=== PATIENT | female | born 1935 | race Caucasian/White ===

== ENCOUNTER 2017-08-28 15:21 | Inpatient (IN) | payer OTHER ==
--- NOTE | 2017-08-28 15:40 | PDOC ---
Rapid Medical Evaluation Time Seen by Provider: 08/28/17 15:33 Medical Evaluation: Allergies Allergy/AdvReac Type Severity Reaction Status Date / Time No Known Allergies Allergy Verified 01/13/16 12:48 08/28/17 15:33 I have performed a brief in-person evaluation of this patient. The patient presents with a chief complaint of pneumonia, found at xray at Dr. Mchugh's office. States patient sent for admission. Patient reports shortness of breath with walking and feeling weak Pertinent physical exam findings are appears weak lungs clear bilaterally heart s1 s2 I have ordered the following chest xray, labs this patient will proceed to the ED for further evaluation.
[2017-08-28 16:52] LABS: BASO % 0.8 % (0-2.0); EOS % 1.5 % (0-4.5); HEMATOCRIT 32.2 % (32.4-45.2); HEMOGLOBIN 10.9 GM/dL (10.7-15.3); LYMPH % 14.2 % (8-40); MCH 33.8 pg (25.7-33.7); MCHC 33.8 g/dl (32.0-36.0); MEAN CELL VOLUME 99.8 fl (80-96); MEAN PLT VOLUME 7.9 fl (7.5-11.1); MONO % 9.5 % (3.8-10.2); PLATELET COUNT 231 K/MM3 (134-434); RBC 3.23 M/mm3 (3.60-5.2); RDW 14.9 % (11.6-15.6); WHITE BLOOD COUNT 5.2 K/mm3 (4.0-10.0)
[2017-08-28 17:13] LABS: INR 1.16 (0.82-1.09); PROTHROMBIN TIME (PATIENT) 13.1 SEC (9.7-13.0)
[2017-08-28 17:15] LABS: ACTIVATED PTT 29.2 SECONDS (26.9-34.4)
[2017-08-28 17:31] LABS: ALBUMIN 2.5 g/dl (3.4-5.0); ANION GAP 6 (8-16); BLOOD UREA NITROGEN 12 mg/dL (7-18); CHLORIDE 98 mmol/L (98-107); CO2 33 mmol/L (21-32); CREATININE 3.3 mg/dL (0.55-1.02); GLUCOSE,RANDOM 195 mg/dL (74-106); POTASSIUM 3.1 mmol/L (3.5-5.1); SGOT/AST 17 U/L (15-37); SGPT/ALT 18 U/L (12-78); SODIUM 137 mmol/L (136-145)
[2017-08-28 17:46] LABS: ALK PHOS 74 U/L (45-117); BILIRUBIN,TOTAL 0.4 mg/dL (0.2-1.0); N-TERMINAL BNP 29998.79 pg/ml (5-450); TOT PROT 6.4 g/dl (6.4-8.2)
--- NOTE | 2017-08-28 18:17 | PDOC ---
History of Present Illness <Diego Georges - Last Filed: 08/28/17 18:44> - History of Present Illness Initial Comments: 08/28/17 18:36 "The patient is a 81 year old female, with a significant PMH of hyperlipidemia, DM, HTN, UTI, dialysis T/TH/S, who presents to the emergency department for evaluation of pneumonia diagnosed via X-ray by Dr. Mchugh at the office earlier today. The patient reports progressively worsening shortness of breath and cough when walking and states she feels weaker than normal. The patient states she was sent to the ED for further evaluation and admission. As per patients family the patient has been noted to have a cough, congestion, fever, chills and worsening leg swelling for the past 3 days. The patient states her last dialysis was earlier today which she completed in full. The patient denies chest pain, headache and dizziness. Denies nausea, vomit, diarrhea and constipation. Denies dysuria, frequency, urgency and hematuria. Allergies: NKA PCP: Dr. Fermin Mchugh " <Osman Fuentes - Last Filed: 08/28/17 18:46> - General Chief Complaint: Cold Symptoms Stated Complaint: PCP SENT Time Seen by Provider: 08/28/17 15:33 Past History <Diego Georges - Last Filed: 08/28/17 18:44> - Past Medical History COPD: No Diabetes: Yes Disorders: Yes (ESRD (T,TH, Sat)) HTN: Yes Hypercholesterolemia: Yes - Surgical History Cholecystectomy: Yes - Immunization History Immunization Up to Date: Yes - Suicide/Smoking/Psychosocial Hx Smoking History: Never smoked Have you smoked in the past 12 months: No Information on smoking cessation initiated: No Hx Alcohol Use: No Drug/Substance Use Hx: No Substance Use Type: None <Osman Fuentes - Last Filed: 08/28/17 18:46> - Past Medical History Allergies/Adverse Reactions: Allergies Allergy/AdvReac Type Severity Reaction Status Date / Time No Known Allergies Allergy Verified 08/28/17 15:39 Home Medications: Ambulatory Orders Acetaminophen with Codeine [Tylenol with Codeine #4 Tablet] 1 tab PO TID PRN 12/20 Ferrous Sulfate [Feosol] 325 mg PO DAILY 01/13/16 Loperamide HCl [Imodium -] 2 mg PO DAILY 09/08/16 Meclizine HCl [Bonine] 25 mg PO DAILY 01/13/16 Amlodipine Besylate [Norvasc -] 2.5 mg PO DAILY #30 tablet 01/18/16 Metoprolol Succinate [Toprol Xl -] 25 mg PO DAILY #30 tab.sr.24h 01/18/16 levoFLOXacin [Levaquin -] 250 mg PO Q2D@0600 #5 tablet 01/18/16 Review of Systems - Review of Systems Comments:: 08/28/17 18:36 " GENERAL/CONSTITUTIONAL: +Fever. +Chills. +Weakness. HEAD, EYES, EARS, NOSE AND THROAT: +Congestion. No change in vision. No ear pain or discharge. No sore throat. CARDIOVASCULAR: +Shortness of breath. +Leg swelling. No chest pain. RESPIRATORY: +Cough. No hemoptysis. GASTROINTESTINAL: No nausea, vomiting, diarrhea or constipation. GENITOURINARY: No dysuria, frequency, or change in urination. MUSCULOSKELETAL: No joint or muscle swelling or pain. No neck or back pain. SKIN: No rash NEUROLOGIC: No headache, vertigo, loss of consciousness, or change in strength/ sensation. ENDOCRINE: No increased thirst. No abnormal weight change. HEMATOLOGIC/LYMPHATIC: No anemia, easy bleeding, or history of blood clots. ALLERGIC/IMMUNOLOGIC: No hives or skin allergy. " <Osman Fuentes - Last Filed: 08/28/17 18:46> *Physical Exam - Vital Signs Last Vital Signs Temp Pulse Resp BP Pulse Ox 98.2 F 72 17 105/62 100 08/28/17 15:35 08/28/17 15:35 08/28/17 15:35 08/28/17 15:35 08/28/17 15:35 <Diego Georges - Last Filed: 08/28/17 18:44> - Vital Signs Last Vital Signs Temp Pulse Resp BP Pulse Ox 98.2 F 72 17 105/62 100 08/28/17 15:35 08/28/17 15:35 08/28/17 15:35 08/28/17 15:35 08/28/17 15:35 - Physical Exam Comments: 08/28/17 18:36 "GENERAL: Awake, alert, and fully oriented, in no acute distress. HEAD: No signs of trauma EYES: PERRLA, EOMI, sclera anicteric, conjunctiva clear ENT: Auricles normal inspection, hearing grossly normal, nares patent, oropharynx clear without exudates. Moist mucosa NECK: Nontender, no stepoffs, Normal ROM, supple, no lymphadenopathy, JVD, or masses LUNGS: + bilateral rales HEART: Regular rate and rhythm, normal S1 and S2, no murmurs, rubs or gallops ABDOMEN: Soft, nontender, normoactive bowel sounds. No guarding, no rebound. No masses EXTREMITIES: +2 PE BLE. No clubbing or cyanosis. No cords, erythema, or tenderness NEUROLOGICAL: Cranial nerves II through XII intact. 5/5 strength and sensation in all extremities, Normal speech, normal gait, normal cerebellar function SKIN: Warm, Dry, normal turgor, no rashes or lesions noted. " <Osman Fuentes - Last Filed: 08/28/17 18:46> ED Treatment Course - LABORATORY CBC & Chemistry Diagram: 08/28/17 16:35 08/28/17 16:35 - ADDITIONAL ORDERS Additional order review: Laboratory Results 08/28/17 08/28/17 16:35 16:35 PT with INR 13.10 H INR 1.16 H PTT (Actin FS) 29.2 Sodium 137 Potassium 3.1 L Chloride 98 Carbon Dioxide 33 H Anion Gap 6 L BUN 12 Creatinine 3.3 H Creat Clearance w eGFR 13.35 Random Glucose 195 H Calcium 8.0 L Total Bilirubin 0.4 AST 17 ALT 18 Alkaline Phosphatase 74 Creatine Kinase 61 Troponin I 0.03 B-Natriuretic Peptide 07237.79 H Total Protein 6.4 Albumin 2.5 L 08/28/17 16:35 RBC 3.23 L MCV 99.8 H MCHC 33.8 RDW 14.9 MPV 7.9 Neutrophils % 74.0 Lymphocytes % 14.2 D Monocytes % 9.5 D Eosinophils % 1.5 Basophils % 0.8 <Diego Georges - Last Filed: 08/28/17 18:44> - LABORATORY CBC & Chemistry Diagram: 08/28/17 16:35 08/28/17 16:35 - ADDITIONAL ORDERS Additional order review: Laboratory Results 08/28/17 08/28/17 16:35 16:35 PT with INR 13.10 H INR 1.16 H PTT (Actin FS) 29.2 Sodium 137 Potassium 3.1 L Chloride 98 Carbon Dioxide 33 H Anion Gap 6 L BUN 12 Creatinine 3.3 H Creat Clearance w eGFR 13.35 Random Glucose 195 H Calcium 8.0 L Total Bilirubin 0.4 AST 17 ALT 18 Alkaline Phosphatase 74 Creatine Kinase 61 Troponin I 0.03 B-Natriuretic Peptide 05763.79 H Total Protein 6.4 Albumin 2.5 L 08/28/17 16:35 RBC 3.23 L MCV 99.8 H MCHC 33.8 RDW 14.9 MPV 7.9 Neutrophils % 74.0 Lymphocytes % 14.2 D Monocytes % 9.5 D Eosinophils % 1.5 Basophils % 0.8 <Osman Fuentes - Last Filed: 08/28/17 18:46> Medical Decision Making - Medical Decision Making 08/28/17 18:[address] Callejas at 6:15 pm. Case discussed. <Diego Georges - Last Filed: 08/28/17 18:44> - Medical Decision Making 08/28/17 18:14 81 F with cough, SOB x 3 days. Outpt CXR found to have findings suspicious for PNA. Pt with rales and pitting edema on exam, concerning for possible CHF as well. Pt otherwise well appearing in no respiratory distress. - Labs, cultures, BNP - CXR - Abx - Admit 08/28/17 18:[address] Callejas <Osman Fuentes - Last Filed: 08/28/17 18:46> *DC/Admit/Observation/Transfer - Attestations Scribe Attestion: 08/28/17 18:31 Documentation prepared by Diego Georges, acting as certified medical biller for Osman Fuentes MD. <Diego Georges - Last Filed: 08/28/17 18:44> - Discharge Dispostion Admit: Yes - Attestations Physician Attestion: 08/28/17 18:46 I, Dr. Osman Fuentes MD, attest that this document has been prepared under my direction and personally reviewed by me in its entirety. I further attest, that it accurately reflects all work, treatment, procedures and medical decision -making performed by me. <Osman Fuentes - Last Filed: 08/28/17 18:46> Diagnosis at time of Disposition: PNA (pneumonia), CHF (congestive heart failure) - Referrals Referrals: Fermin Mchugh MD [Primary Care Provider] - - Patient Instructions - Post Discharge Activity
[2017-08-28] MEDS ORDERED: FUROSEMIDE 40 MG/4 ML INJECTABLE VIAL IVPUSH ONE (18:44)
[2017-08-28] MEDS ORDERED: FUROSEMIDE 40 MG/4 ML INJECTABLE VIAL ONE (18:54)
[2017-08-28] MEDS: ACETAMINOPHEN 325 MG TABLET (FP) PO PRN (21:00)
[2017-08-28 23:18] VITALS: BMI 23.1
--- NOTE | 2017-08-29 00:17 | HP ---
Admitting History and Physical - Admission History of Present Illness: Pt is a 81 y/o female with PMH significant for hyperlipidemia, DM, HTN, ESRD on HD T//, anemia and depression. Pt was initially seen in her PMD's office and found to have pneumo ia and sent to the ER. In the ER pt complained of a dry nonproductive cough and SOB for at least 1 week wc then worsened in the last 3 days. This was also accompanied w/ chest pressure wc was nonradiating but denied any palpitations. The CXR showed multilobar pneumonia and vascular congestion. - Past Medical History Cardiovascular: Yes: HTN Renal/: Yes: Renal Failure ...: No Heme/Onc: Yes: Anemia Psych: Yes: Depression Endocrine: Yes: Diabetes Mellitus - Past Surgical History Past Surgical History: Yes: AV Fistula/Graft - Smoking History Smoking history: Never smoked Have you smoked in the past 12 months: No - Alcohol/Substance Use Hx Alcohol Use: No Home Medications - Allergies Allergies/Adverse Reactions: Allergies Allergy/AdvReac Type Severity Reaction Status Date / Time No Known Allergies Allergy Verified 08/28/17 15:39 - Home Medications Home Medications: Ambulatory Orders Acetaminophen with Codeine [Tylenol with Codeine #4 Tablet] 1 tab PO TID PRN 12/20 Ferrous Sulfate [Feosol] 325 mg PO DAILY 01/13/16 Loperamide HCl [Imodium -] 2 mg PO DAILY 01/13/16 Amlodipine Besylate [Norvasc -] 5 mg PO DAILY 08/28/17 Aspirin [ASA -] 81 mg PO DAILY 08/28/17 Calcitriol 0.5 mcg PO DAILY 08/28/17 Duloxetine HCl 20 mg PO DAILY 08/28/17 Ergocalciferol [Vitamin D2] 50,000 unit PO Q7D@1000 08/28/17 Glimepiride 4 mg PO DAILY 08/28/17 Insulin Detemir [Levemir Flextouch] 14 unit SQ BID 08/28/17 Labetalol HCl 100 mg PO TID 08/28/17 Losartan Potassium 25 mg PO DAILY 08/28/17 Sevelamer HCl [Renagel] 800 mg PO TID 08/28/17 Family Disease History - Family Disease History Family History: Unremarkable Review of Systems - Review of Systems Constitutional: reports: Loss of Appetite, Weakness HENT: reports: No Symptoms Neck: reports: No Symptoms Cardiovascular: reports: Chest Pain, Shortness of Breath Respiratory: reports: Cough, SOB Gastrointestinal: reports: No Symptoms Physical Examination Vital Signs: Vital Signs Temperature 100.3 F H 08/28/17 21:00 Pulse Rate 90 08/28/17 21:00 Respiratory Rate 20 08/28/17 21:00 Blood Pressure 164/86 08/28/17 21:00 O2 Sat by Pulse Oximetry (%) 95 08/28/17 21:00 Constitutional: Yes: Well Nourished HENT: Yes: WNL Neck: Yes: WNL, Supple Cardiovascular: Yes: WNL, Regular Rate and Rhythm Respiratory: Yes: Rhonchi Gastrointestinal: Yes: WNL, Normal Bowel Sounds, Soft Musculoskeletal: Yes: WNL Extremities: Yes: WNL Edema: LLE: Trace, RLE: Trace Neurological: Yes: WNL, Alert, Oriented ...Motor Strength: WNL Labs: CBC, BMP 08/28/17 16:35 08/28/17 16:35 Problem List - Problems (1) PNA (pneumonia) Assessment/Plan: Multilobar pneumonia Cont IV levaquin Cont nebulizers Pulmonary consult Code(s): J18.9 - PNEUMONIA, UNSPECIFIED ORGANISM (2) CHF (congestive heart failure) Assessment/Plan: Acute on chronic diastoli heart failure Volume overload to be corrected w/ dialysis Monitor electrolytes Code(s): I50.9 - HEART FAILURE, UNSPECIFIED Qualifiers: Heart failure type: diastolic Heart failure chronicity: acute on chronic Qualified Code(s): I50.33 - Acute on chronic diastolic (congestive) heart failure (3) ESRD (end stage renal disease) Assessment/Plan: Dialysis as per renal Cont calcitrol/sevelamer Code(s): N18.6 - END STAGE RENAL DISEASE (4) Diabetes mellitus Assessment/Plan: Cont amaryl and levemir Code(s): E11.9 - TYPE 2 DIABETES MELLITUS WITHOUT COMPLICATIONS (5) HTN (hypertension) Assessment/Plan: BP stable Contlosartan/norvasc Code(s): I10 - ESSENTIAL (PRIMARY) HYPERTENSION Qualifiers: Hypertension type: essential hypertension Qualified Code(s): I10 - Essential (primary) hypertension (6) Anemia Assessment/Plan: Due to chronic dz/ESRD Cont Ferrous sulfate Epogen as per renal Code(s): D64.9 - ANEMIA, UNSPECIFIED (7) Depression Assessment/Plan: Cont cymbalta Code(s): F32.9 - MAJOR DEPRESSIVE DISORDER, SINGLE EPISODE, UNSPECIFIED
[2017-08-29] MEDS ORDERED: ACETAMINOPHEN 325 MG TABLET (FP) PO PRN (05:09)
[2017-08-29] MEDS: LABETALOL HCL 100 MG TABLET (FP) PO SCH ×3 (06:31→21:31)
[2017-08-29] MEDS: GLIMEPIRIDE 4 MG TABLET (FP) PO SCH (06:31)
[2017-08-29] MEDS: INSULIN (LEVEMIR) 100 UNITS/ML UNITS SQ SCH ×2 (06:31→22:56)
[2017-08-29 06:58] LABS: BASO % 0.5 % (0-2.0); HEMOGLOBIN 10.4 GM/dL (10.7-15.3); LYMPH % 17.4 % (8-40); MCH 33.3 pg (25.7-33.7); MCHC 33.5 g/dl (32.0-36.0); MEAN CELL VOLUME 99.7 fl (80-96); MEAN PLT VOLUME 8.3 fl (7.5-11.1); MONO % 9.2 % (3.8-10.2); NEUT % 69.9 % (42.8-82.8); PLATELET COUNT 211 K/MM3 (134-434); RBC 3.11 M/mm3 (3.60-5.2); RDW 14.8 % (11.6-15.6); WHITE BLOOD COUNT 5.9 K/mm3 (4.0-10.0)
[2017-08-29 07:25] LABS: ALBUMIN 2.4 g/dl (3.4-5.0); ANION GAP 8 (8-16); BLOOD UREA NITROGEN 17 mg/dL (7-18); CALCIUM 7.7 mg/dL (8.5-10.1); CHLORIDE 99 mmol/L (98-107); CO2 30 mmol/L (21-32); GLUCOSE,RANDOM 195 mg/dL (74-106); POTASSIUM 3.1 mmol/L (3.5-5.1); SODIUM 137 mmol/L (136-145)
[2017-08-29 07:28] LABS: ALK PHOS 65 U/L (45-117); BILIRUBIN,TOTAL 0.3 mg/dL (0.2-1.0); CREATININE 4.1 mg/dL (0.55-1.02); SGOT/AST 17 U/L (15-37); SGPT/ALT 14 U/L (12-78); TOT PROT 5.6 g/dl (6.4-8.2)
--- NOTE | 2017-08-29 07:47 | CONS ---
DATE OF CONSULTATION: DATE OF DICTATION: 08/29/2017 CARDIOLOGY CONSULTATION REQUESTING PHYSICIAN: Maggie Callejas MD HISTORY OF PRESENT ILLNESS: The patient is an 81-year-old female admitted for shortness of breath and pneumonia. The patient is well-known to me from the office. I had seen her in the office just several days ago. Her past medical history is significant for end-stage renal disease (on hemodialysis), diabetes and hypertension. She came to the emergency department for evaluation of pneumonia, diagnosed on chest x-ray by Dr. Mchugh in the office. The patient had reported progressively worsening shortness of breath and cough and weakness. In the ER, she was found to be febrile. As per the family, she has had a cough and congestion, fever and cough, worsening over the past 3 days. Her chest x-ray in the emergency department showed right upper lobe and left middle lobe pneumonia. PAST MEDICAL HISTORY: Significant for diabetes, hypertension and end-stage renal disease. MEDICATIONS: Her home medications include iron sulfate, Renagel, Norvasc 5 mg daily, losartan 25 mg daily, labetalol 100 mg t.i.d., insulin Levemir, glimepiride, vitamin D2, duloxetine, calcitriol, aspirin 81 mg daily. ALLERGIES: She has no known drug allergies. FAMILY HISTORY: Noncontributory. SOCIAL HISTORY: Nonsmoker. PHYSICAL EXAMINATION: Vital Signs: Reviewed in the EMR. Temperature maximum 100.7, pulse 91, blood pressure 150/52, O2 saturation 95% on 2 L. General: Alert. HEENT: Anicteric. Heart: S1, S2. Regular. Lungs: Bibasilar rales. Abdomen: Soft. No rebound or guarding. Extremities: With 1+ to 2+ bilateral edema. LABORATORY DATA: White count 5.2, hematocrit 32, platelet count 231. INR 1.16, sodium 137, potassium initially 3.1, creatinine 3.3. BNP is markedly elevated at 29,000. EKG: NSR 86bpm, LAE, LVH, 1st degree AV block, long QT IMPRESSION: 1. Multilobar pneumonia with fever. 2. End-stage renal disease, on dialysis. 3. Chronic diastolic congestive heart failure. RECOMMENDATIONS: 1. Cultures and antibiotics as per PMD. 2. Supplemental O2. 3. Dialysis as per Renal. 4. DVT prophylaxis. 5. Echocardiogram for assessment of LV function. 6. Replete lytes w/ HD as QT is mildly prolonged, cardiac enzymes neg. Cont tele Thank you for the consultation. GERARDO DIAZ M.D. [id number] MTDD
[2017-08-29] MEDS: ALBUTEROL SO4 2.5/IPRATROPIUM 0.5 INH SOL 3 ML VIAL.NEB. NEB PRN (07:53)
[2017-08-29] MEDS: SEVELAMER CARBONATE 800 MG TAB (FP) PO SCH ×3 (08:35→17:28)
[2017-08-29] MEDS: HEPARIN NA (PORCINE) 5,000 UNITS/ML 1ML VIAL SQ SCH ×2 (10:41→21:32)
[2017-08-29] MEDS: amLODIPine BESYLATE 5 MG TABLET (FP) PO SCH (10:41)
[2017-08-29] MEDS: ASPIRIN 81 MG CHEWABLE TABLETS PO SCH (10:41)
[2017-08-29] MEDS: CALCITRIOL 0.25 MCG CAPSULE (FP) PO SCH (10:41)
[2017-08-29] MEDS: FUROSEMIDE 40 MG/4 ML INJECTABLE VIAL IVPUSH SCH (10:41)
[2017-08-29] MEDS: LOSARTAN POTASSIUM 25 MG TABLET PO SCH (10:41)
[2017-08-29] MEDS: FERROUS SO4 325 MG TABLET (FP) PO SCH (10:41)
[2017-08-29] MEDS: DULoxetine HCL 20 MG CAPSULE.DR (FP) PO SCH (10:42)
--- NOTE | 2017-08-29 11:25 | PN ---
Progress Note (short form) - Note Progress Note: PULMONARY CONSULTATION DICTATED 08/29/17 IMP BILATERAL PNEUMONIA DIASTOLIC CHF ESRD ON HD HTN DM PLAN IV ABX CULTURES SUPPLEMENTAL O2 INHALED BRONCHODILATORS CHEST CT HD PER RENAL DR COLEMAN Problem List - Problems (1) ESRD (end stage renal disease) Code(s): N18.6 - END STAGE RENAL DISEASE (2) CHF (congestive heart failure) Code(s): I50.9 - HEART FAILURE, UNSPECIFIED (3) PNA (pneumonia) Code(s): J18.9 - PNEUMONIA, UNSPECIFIED ORGANISM (4) Diabetes mellitus Code(s): E11.9 - TYPE 2 DIABETES MELLITUS WITHOUT COMPLICATIONS (5) HTN (hypertension) Code(s): I10 - ESSENTIAL (PRIMARY) HYPERTENSION
--- NOTE | 2017-08-29 12:06 | EKG ---
Test Reason : Blood Pressure : / mmHG Vent. Rate : 086 BPM Atrial Rate : 086 BPM P-R Int : 210 ms QRS Dur : 102 ms QT Int : 418 ms P-R-T Axes : 055 062 076 degrees QTc Int : 500 ms SINUS RHYTHM WITH 1ST DEGREE A-V BLOCK POSSIBLE LEFT ATRIAL ENLARGEMENT PROLONGED QT ABNORMAL ECG WHEN COMPARED WITH ECG OF 13-JAN-2016 14:03, NO SIGNIFICANT CHANGE WAS FOUND Confirmed by PREMA CASTANEDA MD ([id number]) on 08/29/2017 12:05:41 PM Referred By: Confirmed By:PREMA CASTANEDA MD
--- NOTE | 2017-08-29 12:31 | CONS ---
DATE OF CONSULTATION: 08/29/2017 REFERRING PHYSICIAN: Maggie Callejas MD HISTORY OF PRESENT ILLNESS: The patient is an 81-year-old female, past medical history of end-stage renal disease, on hemodialysis, diabetes, hypertension, nonsmoker, admitted to [facility], who complained of increasing shortness of breath, cough and chest congestion and generalized weakness. She was at Dr. Mchugh's office with the above complaints. At the time she had a chest x-ray performed which revealed pneumonia at which time she was referred to the emergency room. In the ER she was noted to be febrile to a temperature of 100.7. She had a chest x-ray performed, revealed bilateral pneumonia. She was then transferred up to medical telemetry unit for further management. She was started on IV Levaquin. She is a nonsmoker. She denies any history of occupational exposure to chemicals or fumes. She was born in [facility], moved to the [facility] greater than 52 years ago. She denies any history of COPD or asthma in the past. PAST MEDICAL HISTORY: Again includes end-stage renal disease, on hemodialysis, hypertension as well as diabetes mellitus. SOCIAL HISTORY: Nonsmoker. Born in [facility] and moved to the [facility] 52 years ago. No occupational exposures. REVIEW OF SYSTEMS: Positive shortness of breath. Positive cough. Positive chest congestion. Positive fever. No chest pain. No palpitations. No nausea. No vomiting. No hemoptysis. No abdominal pain. CURRENT MEDICATIONS: Include Duo-Neb, Normodyne, Norvasc, Levemir, Feosol, Lasix, aspirin, Renvela, Amaryl, Calcitriol and Drisdol. PHYSICAL EXAMINATION: General: The patient is an elderly female, wide awake, alert, in no acute distress. Vital Signs: She is currently afebrile, blood pressure is 136/54, respiratory rate is 18, O2 saturation is 96% on 2 L. HEENT: Normocephalic, atraumatic. Neck: Supple. Heart: Regular with S1 and S2. Chest: Few scattered bilateral rhonchi. Abdomen: Soft. Bowel sounds are positive. Extremities: No cyanosis or edema. LABORATORIES: WBC is 5.9, hemoglobin 10.4, hematocrit 31.0, with a platelet count of 211,000. INR is 1.16. BUN is 17, creatinine 4.1. BNP is 29,998. Chest X-ray: Reveals cardiomegaly, increased markings bilaterally, patchy airspaces, right upper lobe and left mid lung field. IMPRESSION: 1. Bilateral pneumonia, community acquired. 2. End-stage renal disease, on hemodialysis 3. Mild pulmonary vascular congestion. 4. Diabetes mellitus. 5. Hypertension. PLAN: Continue inhaled bronchodilators. Supplemental O2. Hemodialysis as per Renal. Antibiotics. Sputum C & S, cultures. Legionella antigen, cold agglutinins, Pneumococcal antigen. Thank you. LANDEN COLEMAN M.D. [id number]
[2017-08-29] MEDS ORDERED: POTASSIUM CHLORIDE TABS 20 MEQ TABLET.ER (FP) PO ONE (17:15)
--- NOTE | 2017-08-29 18:49 | CONSULT ---
Consult - text type - Consultation Consultation Note: Renal Consult for ESRD on HD This is a 81 year old woman with PMhx of ESRD on HD (started 8 months ago), Diabetic Nephropathy, Hypertension, HLD, DM who presented with PNA from PMD office. Pt reports feeling better, denies any cough for now. No fever today but did have a fever yesterday on admission. s/p dialysis yesterday w/o complication. No LEWIS, confusion, lethargy, weakness, N/V/D. No CP. PMhx: as above Allergies: NKDA Family Hx: NC Social hx: No T/A/D ROS: as per HPI Home Medications Medication Instructions Recorded Acetaminophen with Codeine 1 tab PO TID PRN 01/13/16 [Tylenol with Codeine #4 Tablet] Ferrous Sulfate [Feosol] 325 mg PO DAILY 01/13/16 Loperamide HCl [Imodium -] 2 mg PO DAILY 01/13/16 Amlodipine Besylate [Norvasc -] 5 mg PO DAILY 08/28/17 Aspirin [ASA -] 81 mg PO DAILY 08/28/17 Calcitriol 0.5 mcg PO DAILY 08/28/17 Duloxetine HCl 20 mg PO DAILY 08/28/17 Ergocalciferol [Vitamin D2] 50,000 unit PO Q7D@1000 08/28/17 Glimepiride 4 mg PO DAILY 08/28/17 Insulin Detemir [Levemir Flextouch] 14 unit SQ BID 08/28/17 Labetalol HCl 100 mg PO TID 08/28/17 Losartan Potassium 25 mg PO DAILY 08/28/17 Sevelamer HCl [Renagel] 800 mg PO TID 08/28/17 Vital Signs Temperature 99.8 F H 08/29/17 14:00 Pulse Rate 75 08/29/17 14:00 Respiratory Rate 18 08/29/17 08:06 Blood Pressure 146/65 08/29/17 14:00 O2 Sat by Pulse Oximetry (%) 96 08/29/17 08:00 Intake & Output 08/26/17 08/27/17 08/28/17 08/29/17 23:59 23:59 23:59 23:59 Intake Total 130 130 Balance 130 130 Weight 63.049 kg NAD on NC O2 MMM, NO JVD RRR, No M/R + rales, no wheeze soft NT/ND No LE edema, clubbing or cyanosis Right arm AVF CBC, BMP 08/29/17 06:25 08/29/17 06:25 Current Medications Acetaminophen (Tylenol -) 650 mg PO Q6H PRN PRN Reason: FEVER Last Admin: 08/28/17 21:00 Dose: 650 mg Albuterol/Ipratropium (Duoneb -) 1 amp NEB Q6H PRN PRN Reason: SHORTNESS OF BREATH Last Admin: 08/29/17 07:53 Dose: 1 amp Amlodipine Besylate (Norvasc -) 5 mg PO DAILY [facility] Last Admin: 08/29/17 10:41 Dose: 5 mg Aspirin (Asa -) 81 mg PO DAILY [facility] Last Admin: 08/29/17 10:41 Dose: 81 mg Calcitriol (Rocaltrol -) 0.5 mcg PO DAILY [facility] Last Admin: 08/29/17 10:41 Dose: 0.5 mcg Duloxetine HCl (Cymbalta -) 20 mg PO DAILY [facility] Last Admin: 08/29/17 10:42 Dose: 20 mg Ergocalciferol (Drisdol -) 50,000 unit PO Tu@1000 [facility] Ferrous Sulfate (Feosol -) 325 mg PO DAILY [facility] Last Admin: 08/29/17 10:41 Dose: 325 mg Furosemide (Lasix Injection -) 40 mg IVPUSH DAILY [facility] Last Admin: 08/29/17 10:41 Dose: 40 mg Glimepiride (Amaryl -) 4 mg PO DAILY@0700 [facility] Last Admin: 08/29/17 06:31 Dose: 4 mg Heparin Sodium (Porcine) (Heparin -) 5,000 unit SQ BID [facility] Last Admin: 08/29/17 10:41 Dose: 5,000 unit Levofloxacin (Levaquin 250 Mg Premixed Ivpb -) 250 mg in 50 mls @ 100 mls/hr IVPB Q48H NURIS PRN Reason: Protocol Insulin Detemir (Levemir Vial) 14 units SQ BID@0700,2200 [facility] Last Admin: 08/29/17 06:31 Dose: 14 units Labetalol HCl (Normodyne -) 100 mg PO TID [facility] Last Admin: 08/29/17 14:12 Dose: 100 mg Losartan Potassium (Cozaar -) 25 mg PO DAILY [facility] Last Admin: 08/29/17 10:41 Dose: 25 mg Sevelamer Carbonate (Renvela -) 800 mg PO TIDCM NURIS Last Admin: 08/29/17 17:28 Dose: 800 mg 81 year old woman with PMhx of ESRD on HD (started 8 months ago), Diabetic Nephropathy, Hypertension, HLD, DM who presented with PNA from PMD office. #ESRD on HD #PNA #Hypertension #DM #Chronic Anemia #Renal Osteodystrophy Continue Abx as per primary no acute indiction for dialysis today, next treatment tomorrow Renal Diet, 1.2 L fluid restriction Continue Losartan, Lasix and Amlodipine Will continue Epogen with HD Continue Renvela and calcitriol, trend phos levels Thank you Will follow Ryan Dixon DO
--- NOTE | 2017-08-29 23:19 | PN ---
Progress Note, Physician History of Present Illness: This was entered in error - Current Medication List Current Medications: Active Medications Acetaminophen (Tylenol -) 650 mg PO Q6H PRN PRN Reason: FEVER Last Admin: 08/28/17 21:00 Dose: 650 mg Albuterol/Ipratropium (Duoneb -) 1 amp NEB Q6H PRN PRN Reason: SHORTNESS OF BREATH Last Admin: 08/29/17 07:53 Dose: 1 amp Amlodipine Besylate (Norvasc -) 5 mg PO DAILY [facility] Last Admin: 08/29/17 10:41 Dose: 5 mg Aspirin (Asa -) 81 mg PO DAILY [facility] Last Admin: 08/29/17 10:41 Dose: 81 mg Calcitriol (Rocaltrol -) 0.5 mcg PO DAILY [facility] Last Admin: 08/29/17 10:41 Dose: 0.5 mcg Duloxetine HCl (Cymbalta -) 20 mg PO DAILY [facility] Last Admin: 08/29/17 10:42 Dose: 20 mg Epoetin Angel (Epogen -) 8,000 unit IVPUSH ONCE ONE Stop: 08/30/17 06:01 Ergocalciferol (Drisdol -) 50,000 unit PO Tu@1000 [facility] Ferrous Sulfate (Feosol -) 325 mg PO DAILY [facility] Last Admin: 08/29/17 10:41 Dose: 325 mg Furosemide (Lasix Injection -) 40 mg IVPUSH DAILY [facility] Last Admin: 08/29/17 10:41 Dose: 40 mg Glimepiride (Amaryl -) 4 mg PO DAILY@0700 [facility] Last Admin: 08/29/17 06:31 Dose: 4 mg Heparin Sodium (Porcine) (Heparin -) 5,000 unit SQ BID [facility] Last Admin: 08/29/17 21:32 Dose: 5,000 unit Heparin Sodium (Porcine) (Heparin -) 1,000 unit IVPUSH ONCE ONE Stop: 08/30/17 06:01 Levofloxacin (Levaquin 250 Mg Premixed Ivpb -) 250 mg in 50 mls @ 100 mls/hr IVPB Q48H [facility] PRN Reason: Protocol Sodium Chloride (Normal Saline -) 250 mls @ 3,000 mls/hr IV PRN PRN PRN Reason: Hypotension during Dialysis Stop: 08/30/17 18:49 Insulin Detemir (Levemir Vial) 14 units SQ BID@0700,2200 [facility] Last Admin: 08/29/17 22:56 Dose: Not Given Labetalol HCl (Normodyne -) 100 mg PO TID [facility] Last Admin: 08/29/17 21:31 Dose: 100 mg Losartan Potassium (Cozaar -) 25 mg PO DAILY [facility] Last Admin: 08/29/17 10:41 Dose: 25 mg Sevelamer Carbonate (Renvela -) 800 mg PO TIDCM [facility] Last Admin: 08/29/17 17:28 Dose: 800 mg - Objective Vital Signs: Vital Signs Temperature 97.4 F L 08/29/17 21:30 Pulse Rate 57 L 08/29/17 21:30 Respiratory Rate 18 08/29/17 21:30 Blood Pressure 131/52 08/29/17 21:30 O2 Sat by Pulse Oximetry (%) 98 08/29/17 20:34 Labs: CBC, BMP 08/29/17 06:25 08/29/17 06:25 INR, PTT INR 1.16 (0.82-1.09) H 08/28/17 16:35
[2017-08-30] MEDS: GLIMEPIRIDE 4 MG TABLET (FP) PO SCH (06:19)
[2017-08-30] MEDS: INSULIN (LEVEMIR) 100 UNITS/ML UNITS SQ SCH ×2 (06:19→23:04)
[2017-08-30] MEDS: LABETALOL HCL 100 MG TABLET (FP) PO SCH ×3 (06:19→23:04)
[2017-08-30] MEDS: ALBUTEROL SO4 2.5/IPRATROPIUM 0.5 INH SOL 3 ML VIAL.NEB. NEB PRN ×2 (08:45→15:55)
[2017-08-30] MEDS: SEVELAMER CARBONATE 800 MG TAB (FP) PO SCH ×3 (08:47→17:49)
[2017-08-30] MEDS ORDERED: EPOETIN ALFA 10,000 UNIT/1 ML VIAL IVPUSH ONE (09:00)
[2017-08-30] MEDS ORDERED: SODIUM CHLORIDE 250 ML IV PRN (09:00)
[2017-08-30] MEDS ORDERED: HEPARIN NA (PORCINE) 5,000 UNITS/ML 1ML VIAL IVPUSH ONE (09:00)
--- NOTE | 2017-08-30 09:11 | PN ---
Progress Note, Physician Chief Complaint: no acute distress - Current Medication List Current Medications: Active Medications Acetaminophen (Tylenol -) 650 mg PO Q6H PRN PRN Reason: FEVER Last Admin: 08/28/17 21:00 Dose: 650 mg Albuterol/Ipratropium (Duoneb -) 1 amp NEB Q6H PRN PRN Reason: SHORTNESS OF BREATH Last Admin: 08/29/17 07:53 Dose: 1 amp Amlodipine Besylate (Norvasc -) 5 mg PO DAILY [facility] Last Admin: 08/29/17 10:41 Dose: 5 mg Aspirin (Asa -) 81 mg PO DAILY [facility] Last Admin: 08/29/17 10:41 Dose: 81 mg Calcitriol (Rocaltrol -) 0.5 mcg PO DAILY [facility] Last Admin: 08/29/17 10:41 Dose: 0.5 mcg Duloxetine HCl (Cymbalta -) 20 mg PO DAILY [facility] Last Admin: 08/29/17 10:42 Dose: 20 mg Ergocalciferol (Drisdol -) 50,000 unit PO Tu@1000 [facility] Ferrous Sulfate (Feosol -) 325 mg PO DAILY [facility] Last Admin: 08/29/17 10:41 Dose: 325 mg Furosemide (Lasix Injection -) 40 mg IVPUSH DAILY [facility] Last Admin: 08/29/17 10:41 Dose: 40 mg Glimepiride (Amaryl -) 4 mg PO DAILY@0700 [facility] Last Admin: 08/30/17 06:19 Dose: 4 mg Heparin Sodium (Porcine) (Heparin -) 5,000 unit SQ BID [facility] Last Admin: 08/29/17 21:32 Dose: 5,000 unit Levofloxacin (Levaquin 250 Mg Premixed Ivpb -) 250 mg in 50 mls @ 100 mls/hr IVPB Q48H [facility] PRN Reason: Protocol Insulin Detemir (Levemir Vial) 14 units SQ BID@0700,2200 [facility] Last Admin: 08/30/17 06:19 Dose: 14 units Labetalol HCl (Normodyne -) 100 mg PO TID [facility] Last Admin: 08/30/17 06:19 Dose: 100 mg Losartan Potassium (Cozaar -) 25 mg PO DAILY [facility] Last Admin: 08/29/17 10:41 Dose: 25 mg Sevelamer Carbonate (Renvela -) 800 mg PO TIDCM [facility] Last Admin: 08/30/17 08:47 Dose: 800 mg - Objective Vital Signs: Vital Signs Temperature 98.2 F 08/30/17 05:20 Pulse Rate 78 08/30/17 05:20 Respiratory Rate 18 08/30/17 05:20 Blood Pressure 150/57 08/30/17 05:20 O2 Sat by Pulse Oximetry (%) 98 08/29/17 20:34 Constitutional: Yes: Calm Cardiovascular: Yes: Regular Rate and Rhythm Respiratory: Yes: Other (rales right base) Gastrointestinal: Yes: Soft Edema: No Neurological: Yes: Alert Labs: CBC, BMP 08/29/17 06:25 08/29/17 06:25 INR, PTT INR 1.16 (0.82-1.09) H 08/28/17 16:35 - ....Imaging EKG: Image Reviewed (NSR) Assessment/Plan IMP: PNA ESRD REC: 1. O2 2. HD 3. ABx as per PMD f/u cultures 4. D/C tele
[2017-08-30 10:34] LABS: ANION GAP 11 (8-16); BLOOD UREA NITROGEN 33 mg/dL (7-18); CALCIUM 7.5 mg/dL (8.5-10.1); CHLORIDE 96 mmol/L (98-107); CO2 29 mmol/L (21-32); CREATININE 5.6 mg/dL (0.55-1.02); GLUCOSE,RANDOM 146 mg/dL (74-106); PHOSPHOROUS 6.3 mg/dL (2.5-4.9); POTASSIUM 3.2 mmol/L (3.5-5.1); SODIUM 136 mmol/L (136-145)
[2017-08-30 10:38] LABS: HEMATOCRIT 27.6 % (32.4-45.2); HEMOGLOBIN 9.3 GM/dL (10.7-15.3); MCH 33.4 pg (25.7-33.7); MCHC 33.6 g/dl (32.0-36.0); MEAN CELL VOLUME 99.2 fl (80-96); MEAN PLT VOLUME 8.7 fl (7.5-11.1); PLATELET COUNT 214 K/MM3 (134-434); RBC 2.78 M/mm3 (3.60-5.2); RDW 14.6 % (11.6-15.6); WHITE BLOOD COUNT 6.8 K/mm3 (4.0-10.0)
--- NOTE | 2017-08-30 12:34 | PN ---
Progress Note (short form) - Note Progress Note: PULMONARY States breathing better, cough nonproductive. Reports diarrhea. No further fevers. Last Vital Signs Temp Pulse Resp BP Pulse Ox 98.2 F 90 18 163/71 98 08/30/17 05:20 08/30/17 12:00 08/30/17 12:00 08/30/17 12:00 08/29/17 20:34 Gen: NAD at rest Heart: RRR Lung: decreased breath sounds at the bases Abd: soft, nontender Ext: no edema CBC, BMP 08/30/17 09:15 Active Medications Acetaminophen (Tylenol -) 650 mg PO Q6H PRN PRN Reason: FEVER Last Admin: 08/28/17 21:00 Dose: 650 mg Albuterol/Ipratropium (Duoneb -) 1 amp NEB Q6H PRN PRN Reason: SHORTNESS OF BREATH Last Admin: 08/30/17 08:45 Dose: 1 amp Amlodipine Besylate (Norvasc -) 5 mg PO DAILY [facility] Last Admin: 08/29/17 10:41 Dose: 5 mg Aspirin (Asa -) 81 mg PO DAILY [facility] Last Admin: 08/29/17 10:41 Dose: 81 mg Calcitriol (Rocaltrol -) 0.5 mcg PO DAILY [facility] Last Admin: 08/29/17 10:41 Dose: 0.5 mcg Duloxetine HCl (Cymbalta -) 20 mg PO DAILY [facility] Last Admin: 08/29/17 10:42 Dose: 20 mg Ergocalciferol (Drisdol -) 50,000 unit PO Tu@1000 [facility] Ferrous Sulfate (Feosol -) 325 mg PO DAILY [facility] Last Admin: 08/29/17 10:41 Dose: 325 mg Furosemide (Lasix Injection -) 40 mg IVPUSH DAILY [facility] Last Admin: 08/29/17 10:41 Dose: 40 mg Glimepiride (Amaryl -) 4 mg PO DAILY@0700 [facility] Last Admin: 08/30/17 06:19 Dose: 4 mg Heparin Sodium (Porcine) (Heparin -) 5,000 unit SQ BID [facility] Last Admin: 08/29/17 21:32 Dose: 5,000 unit Levofloxacin (Levaquin 250 Mg Premixed Ivpb -) 250 mg in 50 mls @ 100 mls/hr IVPB Q48H [facility] PRN Reason: Protocol Insulin Detemir (Levemir Vial) 14 units SQ BID@0700,2200 [facility] Last Admin: 08/30/17 06:19 Dose: 14 units Labetalol HCl (Normodyne -) 100 mg PO TID [facility] Last Admin: 08/30/17 06:19 Dose: 100 mg Losartan Potassium (Cozaar -) 25 mg PO DAILY [facility] Last Admin: 08/29/17 10:41 Dose: 25 mg Sevelamer Carbonate (Renvela -) 800 mg PO TIDCM [facility] Last Admin: 08/30/17 08:47 Dose: 800 mg A/P Pneumonia Acute on Chronic Diastolic Heart Failure ESRD on HD HTN DM - continue antibiotics - f/u cultures - HD per renal - inhaled bronchodilators, O2 as needed - DVT prophylaxis
[2017-08-30] MEDS: ACETAMINOPHEN 325 MG TABLET (FP) PO PRN (14:06)
[2017-08-30] MEDS: DULoxetine HCL 20 MG CAPSULE.DR (FP) PO SCH (14:07)
[2017-08-30] MEDS: ASPIRIN 81 MG CHEWABLE TABLETS PO SCH (14:10)
[2017-08-30] MEDS: FERROUS SO4 325 MG TABLET (FP) PO SCH (14:10)
[2017-08-30] MEDS: LOSARTAN POTASSIUM 25 MG TABLET PO SCH (14:10)
[2017-08-30] MEDS: amLODIPine BESYLATE 5 MG TABLET (FP) PO SCH (14:10)
[2017-08-30] MEDS: CALCITRIOL 0.25 MCG CAPSULE (FP) PO SCH (14:10)
[2017-08-30] MEDS: FUROSEMIDE 40 MG/4 ML INJECTABLE VIAL IVPUSH SCH (14:11)
[2017-08-30] MEDS: HEPARIN NA (PORCINE) 5,000 UNITS/ML 1ML VIAL SQ SCH ×2 (14:11→23:04)
--- NOTE | 2017-08-30 15:03 | PN ---
Progress Note (short form) - Note Progress Note: Renal follow up for ESRD on HD Pt seen and examined during dialysis earlier today BP 170/60, UF goal 3L AVF with good BFR, pressures WNL pt without acute complaints Vital Signs Temperature 101.4 F H 08/30/17 14:00 Pulse Rate 90 08/30/17 14:00 Respiratory Rate 20 08/30/17 14:00 Blood Pressure 176/78 08/30/17 14:00 O2 Sat by Pulse Oximetry (%) 97 08/30/17 09:00 Intake & Output 08/27/17 08/28/17 08/29/17 08/30/17 23:59 23:59 23:59 23:59 Intake Total 130 330 120 Output Total 0 Balance 130 330 120 Weight 63.049 kg 62.777 kg NAD on NC O2 MMM, NO JVD RRR, No M/R + rales, no wheeze soft NT/ND No LE edema, clubbing or cyanosis Right arm AVF CBC, BMP 08/29/17 06:25 08/29/17 06:25 Current Medications Acetaminophen (Tylenol -) 650 mg PO Q6H PRN PRN Reason: FEVER Last Admin: 08/28/17 21:00 Dose: 650 mg Albuterol/Ipratropium (Duoneb -) 1 amp NEB Q6H PRN PRN Reason: SHORTNESS OF BREATH Last Admin: 08/29/17 07:53 Dose: 1 amp Amlodipine Besylate (Norvasc -) 5 mg PO DAILY [facility] Last Admin: 08/29/17 10:41 Dose: 5 mg Aspirin (Asa -) 81 mg PO DAILY [facility] Last Admin: 08/29/17 10:41 Dose: 81 mg Calcitriol (Rocaltrol -) 0.5 mcg PO DAILY [facility] Last Admin: 08/29/17 10:41 Dose: 0.5 mcg Duloxetine HCl (Cymbalta -) 20 mg PO DAILY [facility] Last Admin: 08/29/17 10:42 Dose: 20 mg Ergocalciferol (Drisdol -) 50,000 unit PO Tu@1000 [facility] Ferrous Sulfate (Feosol -) 325 mg PO DAILY [facility] Last Admin: 08/29/17 10:41 Dose: 325 mg Furosemide (Lasix Injection -) 40 mg IVPUSH DAILY [facility] Last Admin: 08/29/17 10:41 Dose: 40 mg Glimepiride (Amaryl -) 4 mg PO DAILY@0700 [facility] Last Admin: 08/29/17 06:31 Dose: 4 mg Heparin Sodium (Porcine) (Heparin -) 5,000 unit SQ BID [facility] Last Admin: 08/29/17 10:41 Dose: 5,000 unit Levofloxacin (Levaquin 250 Mg Premixed Ivpb -) 250 mg in 50 mls @ 100 mls/hr IVPB Q48H [facility] PRN Reason: Protocol Insulin Detemir (Levemir Vial) 14 units SQ BID@0700,2200 [facility] Last Admin: 08/29/17 06:31 Dose: 14 units Labetalol HCl (Normodyne -) 100 mg PO TID [facility] Last Admin: 08/29/17 14:12 Dose: 100 mg Losartan Potassium (Cozaar -) 25 mg PO DAILY [facility] Last Admin: 08/29/17 10:41 Dose: 25 mg Sevelamer Carbonate (Renvela -) 800 mg PO TIDCM [facility] Last Admin: 08/29/17 17:28 Dose: 800 mg 81 year old woman with PMhx of ESRD on HD (started 8 months ago), Diabetic Nephropathy, Hypertension, HLD, DM who presented with PNA from PMD office. #ESRD on HD #PNA #Hypertension #DM #Chronic Anemia #Renal Osteodystrophy Continue Abx as per primary Tolerating HD well today to get antihypertenive meds after dialsyis Trend CBC continue phos binder and calcitriol Thank you Will follow Ryan Dixon DO
--- NOTE | 2017-08-30 23:11 | PN ---
Progress Note, Physician History of Present Illness: Pt has less productive cough - Current Medication List Current Medications: Active Medications Acetaminophen (Tylenol -) 650 mg PO Q6H PRN PRN Reason: FEVER Last Admin: 08/30/17 14:06 Dose: 650 mg Albuterol/Ipratropium (Duoneb -) 1 amp NEB Q6H PRN PRN Reason: SHORTNESS OF BREATH Last Admin: 08/30/17 15:55 Dose: 1 amp Amlodipine Besylate (Norvasc -) 5 mg PO DAILY [facility] Last Admin: 08/30/17 14:10 Dose: 5 mg Aspirin (Asa -) 81 mg PO DAILY [facility] Last Admin: 08/30/17 14:10 Dose: 81 mg Calcitriol (Rocaltrol -) 0.5 mcg PO DAILY [facility] Last Admin: 08/30/17 14:10 Dose: 0.5 mcg Duloxetine HCl (Cymbalta -) 20 mg PO DAILY [facility] Last Admin: 08/30/17 14:07 Dose: 20 mg Ergocalciferol (Drisdol -) 50,000 unit PO Tu@1000 [facility] Ferrous Sulfate (Feosol -) 325 mg PO DAILY [facility] Last Admin: 08/30/17 14:10 Dose: 325 mg Furosemide (Lasix Injection -) 40 mg IVPUSH DAILY [facility] Last Admin: 08/30/17 14:11 Dose: 40 mg Glimepiride (Amaryl -) 4 mg PO DAILY@0700 [facility] Last Admin: 08/30/17 06:19 Dose: 4 mg Heparin Sodium (Porcine) (Heparin -) 5,000 unit SQ BID [facility] Last Admin: 08/30/17 14:11 Dose: Not Given Levofloxacin (Levaquin 250 Mg Premixed Ivpb -) 250 mg in 50 mls @ 100 mls/hr IVPB Q48H [facility] PRN Reason: Protocol Insulin Detemir (Levemir Vial) 14 units SQ BID@0700,2200 [facility] Last Admin: 08/30/17 06:19 Dose: 14 units Labetalol HCl (Normodyne -) 100 mg PO TID [facility] Last Admin: 08/30/17 14:06 Dose: 100 mg Losartan Potassium (Cozaar -) 25 mg PO DAILY [facility] Last Admin: 08/30/17 14:10 Dose: 25 mg Sevelamer Carbonate (Renvela -) 800 mg PO TIDCM [facility] Last Admin: 08/30/17 17:49 Dose: 800 mg - Objective Vital Signs: Vital Signs Temperature 99.3 F 08/30/17 17:00 Pulse Rate 75 08/30/17 17:00 Respiratory Rate 20 08/30/17 17:00 Blood Pressure 129/51 08/30/17 17:00 O2 Sat by Pulse Oximetry (%) 97 08/30/17 09:00 HENT: Yes: WNL Neck: Yes: WNL, Supple Cardiovascular: Yes: WNL, Regular Rate and Rhythm Respiratory: Yes: Diminished Gastrointestinal: Yes: WNL, Normal Bowel Sounds, Soft Labs: CBC, BMP 08/30/17 09:15 08/30/17 09:15 INR, PTT INR 1.16 (0.82-1.09) H 08/28/17 16:35 Problem List - Problems (1) CHF (congestive heart failure) Assessment/Plan: Cont IV lasix Monitor electrolytes Code(s): I50.9 - HEART FAILURE, UNSPECIFIED (2) PNA (pneumonia) Assessment/Plan: Cont IV levaquin Code(s): J18.9 - PNEUMONIA, UNSPECIFIED ORGANISM (3) ESRD (end stage renal disease) Code(s): N18.6 - END STAGE RENAL DISEASE (4) Diabetes mellitus Code(s): E11.9 - TYPE 2 DIABETES MELLITUS WITHOUT COMPLICATIONS (5) HTN (hypertension) Code(s): I10 - ESSENTIAL (PRIMARY) HYPERTENSION
[2017-08-31] MEDS: LABETALOL HCL 100 MG TABLET (FP) PO SCH ×3 (06:22→22:28)
[2017-08-31] MEDS: GLIMEPIRIDE 4 MG TABLET (FP) PO SCH (06:22)
[2017-08-31] MEDS: INSULIN (LEVEMIR) 100 UNITS/ML UNITS SQ SCH ×2 (06:22→22:28)
[2017-08-31 07:04] LABS: BASO % 0.4 % (0-2.0); EOS % 0.4 % (0-4.5); HEMATOCRIT 30.7 % (32.4-45.2); HEMOGLOBIN 10.3 GM/dL (10.7-15.3); LYMPH % 23.3 % (8-40); MCH 33.6 pg (25.7-33.7); MCHC 33.6 g/dl (32.0-36.0); MEAN CELL VOLUME 99.7 fl (80-96); MEAN PLT VOLUME 8.5 fl (7.5-11.1); MONO % 9.2 % (3.8-10.2); NEUT % 66.7 % (42.8-82.8); PLATELET COUNT 245 K/MM3 (134-434); RBC 3.08 M/mm3 (3.60-5.2); RDW 15.1 % (11.6-15.6); WHITE BLOOD COUNT 6.8 K/mm3 (4.0-10.0)
[2017-08-31 07:41] LABS: ALBUMIN 2.3 g/dl (3.4-5.0); ANION GAP 7 (8-16); BLOOD UREA NITROGEN 20 mg/dL (7-18); CHLORIDE 102 mmol/L (98-107); CO2 30 mmol/L (21-32); CREATININE 3.9 mg/dL (0.55-1.02); GLUCOSE,RANDOM 52 mg/dL (74-106); POTASSIUM 3.4 mmol/L (3.5-5.1); SGOT/AST 23 U/L (15-37); SGPT/ALT 14 U/L (12-78); SODIUM 139 mmol/L (136-145)
[2017-08-31 07:44] LABS: ALK PHOS 61 U/L (45-117); BILIRUBIN,TOTAL 0.3 mg/dL (0.2-1.0); TOT PROT 5.8 g/dl (6.4-8.2)
[2017-08-31] MEDS: SEVELAMER CARBONATE 800 MG TAB (FP) PO SCH ×3 (07:50→16:52)
--- NOTE | 2017-08-31 08:45 | PN ---
Progress Note, Physician Chief Complaint: TELE: NSR - Current Medication List Current Medications: Active Medications Acetaminophen (Tylenol -) 650 mg PO Q6H PRN PRN Reason: FEVER Last Admin: 08/30/17 14:06 Dose: 650 mg Albuterol/Ipratropium (Duoneb -) 1 amp NEB Q6H PRN PRN Reason: SHORTNESS OF BREATH Last Admin: 08/30/17 15:55 Dose: 1 amp Amlodipine Besylate (Norvasc -) 5 mg PO DAILY [facility] Last Admin: 08/30/17 14:10 Dose: 5 mg Aspirin (Asa -) 81 mg PO DAILY [facility] Last Admin: 08/30/17 14:10 Dose: 81 mg Calcitriol (Rocaltrol -) 0.5 mcg PO DAILY [facility] Last Admin: 08/30/17 14:10 Dose: 0.5 mcg Duloxetine HCl (Cymbalta -) 20 mg PO DAILY [facility] Last Admin: 08/30/17 14:07 Dose: 20 mg Ergocalciferol (Drisdol -) 50,000 unit PO Tu@1000 [facility] Ferrous Sulfate (Feosol -) 325 mg PO DAILY [facility] Last Admin: 08/30/17 14:10 Dose: 325 mg Furosemide (Lasix Injection -) 40 mg IVPUSH DAILY [facility] Last Admin: 08/30/17 14:11 Dose: 40 mg Glimepiride (Amaryl -) 4 mg PO DAILY@0700 [facility] Last Admin: 08/31/17 06:22 Dose: Not Given Heparin Sodium (Porcine) (Heparin -) 5,000 unit SQ BID [facility] Last Admin: 08/30/17 23:04 Dose: 5,000 unit Levofloxacin (Levaquin 250 Mg Premixed Ivpb -) 250 mg in 50 mls @ 100 mls/hr IVPB Q48H [facility] PRN Reason: Protocol Last Admin: 08/30/17 23:04 Dose: 100 mls/hr Insulin Detemir (Levemir Vial) 14 units SQ BID@0700,2200 [facility] Last Admin: 08/31/17 06:22 Dose: Not Given Labetalol HCl (Normodyne -) 100 mg PO TID [facility] Last Admin: 08/31/17 06:22 Dose: 100 mg Losartan Potassium (Cozaar -) 25 mg PO DAILY [facility] Last Admin: 08/30/17 14:10 Dose: 25 mg Sevelamer Carbonate (Renvela -) 800 mg PO TIDCM [facility] Last Admin: 08/31/17 07:50 Dose: 800 mg - Objective Vital Signs: Vital Signs Temperature 98.5 F 08/31/17 05:26 Pulse Rate 75 08/31/17 05:26 Respiratory Rate 20 08/31/17 05:26 Blood Pressure 155/56 08/31/17 05:26 O2 Sat by Pulse Oximetry (%) 93 L 08/30/17 21:00 Cardiovascular: Yes: Regular Rate and Rhythm Respiratory: Yes: Other (bibasilar rales) Gastrointestinal: Yes: Soft Edema: No Neurological: Yes: Alert Labs: CBC, BMP 08/31/17 05:00 08/31/17 05:00 INR, PTT INR 1.16 (0.82-1.09) H 08/28/17 16:35 Microbiology 08/28/17 19:18 Blood - Peripheral Venous Blood Culture - Preliminary NO GROWTH OBTAINED AFTER 48 HOURS, INCUBATION TO CONTINUE FOR 3 DAYS. 08/28/17 19:18 Blood - Peripheral Venous Blood Culture - Preliminary NO GROWTH OBTAINED AFTER 48 HOURS, INCUBATION TO CONTINUE FOR 3 DAYS. Laboratory Tests 08/31/17 08/31/17 05:00 05:00 WBC 6.8 Hgb 10.3 L D Hct 30.7 L Plt Count 245 Sodium 139 Potassium 3.4 L BUN 20 H Creatinine 3.9 H AST 23 ALT 14 Alkaline Phosphatase 61 - ....Imaging EKG: Image Reviewed Assessment/Plan IMP: PNA ESRD Acute on chronic diastolic CHF REC: 1. O2 2. HD- more aggressive volume removal as tolerated. 3. ABx as per PMD f/u cultures 4. Will continue tele
[2017-08-31] MEDS ORDERED: PT OWN MED DRAWER 7, Y5N ONE (10:13)
[2017-08-31] MEDS: amLODIPine BESYLATE 5 MG TABLET (FP) PO SCH (10:14)
[2017-08-31] MEDS: FERROUS SO4 325 MG TABLET (FP) PO SCH (10:14)
[2017-08-31] MEDS: DULoxetine HCL 20 MG CAPSULE.DR (FP) PO SCH (10:14)
[2017-08-31] MEDS: ASPIRIN 81 MG CHEWABLE TABLETS PO SCH (10:14)
[2017-08-31] MEDS: HEPARIN NA (PORCINE) 5,000 UNITS/ML 1ML VIAL SQ SCH ×2 (10:15→22:28)
[2017-08-31] MEDS: LOSARTAN POTASSIUM 25 MG TABLET PO SCH (10:15)
[2017-08-31] MEDS: CALCITRIOL 0.25 MCG CAPSULE (FP) PO SCH (10:16)
--- NOTE | 2017-08-31 11:14 | PN ---
Progress Note, Physician History of Present Illness: PULMONARY ALERT,STILL CONGESTED + COUGH,C/O ABD DISCOMFORT. - Current Medication List Current Medications: Active Medications Acetaminophen (Tylenol -) 650 mg PO Q6H PRN PRN Reason: FEVER Last Admin: 08/30/17 14:06 Dose: 650 mg Albuterol/Ipratropium (Duoneb -) 1 amp NEB Q6H PRN PRN Reason: SHORTNESS OF BREATH Last Admin: 08/30/17 15:55 Dose: 1 amp Amlodipine Besylate (Norvasc -) 5 mg PO DAILY [facility] Last Admin: 08/31/17 10:14 Dose: 5 mg Aspirin (Asa -) 81 mg PO DAILY [facility] Last Admin: 08/31/17 10:14 Dose: 81 mg Calcitriol (Rocaltrol -) 0.5 mcg PO DAILY [facility] Last Admin: 08/31/17 10:16 Dose: 0.5 mcg Duloxetine HCl (Cymbalta -) 20 mg PO DAILY [facility] Last Admin: 08/31/17 10:14 Dose: 20 mg Ergocalciferol (Drisdol -) 50,000 unit PO Tu@1000 [facility] Ferrous Sulfate (Feosol -) 325 mg PO DAILY [facility] Last Admin: 08/31/17 10:14 Dose: 325 mg Glimepiride (Amaryl -) 4 mg PO DAILY@0700 [facility] Last Admin: 08/31/17 06:22 Dose: Not Given Heparin Sodium (Porcine) (Heparin -) 5,000 unit SQ BID [facility] Last Admin: 08/31/17 10:15 Dose: 5,000 unit Levofloxacin (Levaquin 250 Mg Premixed Ivpb -) 250 mg in 50 mls @ 100 mls/hr IVPB Q48H [facility] PRN Reason: Protocol Last Admin: 08/30/17 23:04 Dose: 100 mls/hr Insulin Detemir (Levemir Vial) 14 units SQ BID@0700,2200 [facility] Last Admin: 08/31/17 06:22 Dose: Not Given Labetalol HCl (Normodyne -) 100 mg PO TID [facility] Last Admin: 08/31/17 06:22 Dose: 100 mg Losartan Potassium (Cozaar -) 25 mg PO DAILY [facility] Last Admin: 08/31/17 10:15 Dose: 25 mg Sevelamer Carbonate (Renvela -) 800 mg PO TIDCM [facility] Last Admin: 08/31/17 07:50 Dose: 800 mg - Objective Vital Signs: Vital Signs Temperature 98.5 F 08/31/17 05:26 Pulse Rate 75 08/31/17 05:26 Respiratory Rate 20 08/31/17 05:26 Blood Pressure 155/56 08/31/17 05:26 O2 Sat by Pulse Oximetry (%) 93 L 08/30/17 21:00 Constitutional: Yes: Well Nourished, Calm Eyes: Yes: WNL HENT: Yes: WNL Neck: Yes: WNL Cardiovascular: Yes: Regular Rate and Rhythm, S1, S2 Respiratory: Yes: Rhonchi (BILATERAL RHONCHI) Gastrointestinal: Yes: Normal Bowel Sounds, Soft, Tenderness (MIN TENDER THROUGHOUT,-REBOUND) Extremities: Yes: WNL Edema: No Labs: CBC, BMP 08/31/17 05:00 08/31/17 05:00 INR, PTT INR 1.16 (0.82-1.09) H 08/28/17 16:35 Problem List - Problems (1) ESRD (end stage renal disease) Code(s): N18.6 - END STAGE RENAL DISEASE (2) CHF (congestive heart failure) Code(s): I50.9 - HEART FAILURE, UNSPECIFIED (3) PNA (pneumonia) Code(s): J18.9 - PNEUMONIA, UNSPECIFIED ORGANISM (4) Diabetes mellitus Code(s): E11.9 - TYPE 2 DIABETES MELLITUS WITHOUT COMPLICATIONS (5) HTN (hypertension) Code(s): I10 - ESSENTIAL (PRIMARY) HYPERTENSION Assessment/Plan MP BILATERAL PNEUMONIA DIASTOLIC CHF ESRD ON HD HTN DM PLAN IV ABX SUPPLEMENTAL O2 INHALED BRONCHODILATORS CHEST CT HD PER RENAL DR COLEMAN Problem List - Problems (1) ESRD (end stage renal disease) Code(s): N18.6 - END STAGE RENAL DISEASE (2) CHF (congestive heart failure) Code(s): I50.9 - HEART FAILURE, UNSPECIFIED (3) PNA (pneumonia) Code(s): J18.9 - PNEUMONIA, UNSPECIFIED ORGANISM (4) Diabetes mellitus Code(s): E11.9 - TYPE 2 DIABETES MELLITUS WITHOUT COMPLICATIONS (5) HTN (hypertension) Code(s): I10 - ESSENTIAL (PRIMARY) HYPERTENSION
[2017-08-31] MEDS ORDERED: SODIUM CHLORIDE 250 ML IV PRN (12:34)
--- NOTE | 2017-08-31 12:34 | PN ---
Progress Note (short form) - Note Progress Note: Renal follow up for ESRD on HD Pt seen and examined at the bedside awake and alert reports diarrhea and lower abd pain no sob, chest pain cough persists had dialysis yesterday Vital Signs Temperature 98.5 F 08/31/17 05:26 Pulse Rate 75 08/31/17 05:26 Respiratory Rate 20 08/31/17 05:26 Blood Pressure 155/56 08/31/17 05:26 O2 Sat by Pulse Oximetry (%) 93 L 08/30/17 21:00 Intake & Output 08/28/17 08/29/17 08/30/17 08/31/17 23:59 23:59 23:59 23:59 Intake Total 130 330 430 Output Total 0 Balance 130 330 430 Weight 63.049 kg 62.777 kg 62.312 kg NAD on NC O2 MMM, NO JVD RRR, No M/R + rales, no wheeze soft NT/ND No LE edema, clubbing or cyanosis Right arm AVF 08/31/17 05:00 08/31/17 05:00 Laboratory Tests 08/31/17 05:00 Calcium 8.0 L Albumin 2.3 L Current Medications Acetaminophen (Tylenol -) 650 mg PO Q6H PRN PRN Reason: FEVER Last Admin: 08/30/17 14:06 Dose: 650 mg Albuterol/Ipratropium (Duoneb -) 1 amp NEB Q6H PRN PRN Reason: SHORTNESS OF BREATH Last Admin: 08/30/17 15:55 Dose: 1 amp Amlodipine Besylate (Norvasc -) 5 mg PO DAILY [facility] Last Admin: 08/31/17 10:14 Dose: 5 mg Aspirin (Asa -) 81 mg PO DAILY [facility] Last Admin: 08/31/17 10:14 Dose: 81 mg Calcitriol (Rocaltrol -) 0.5 mcg PO DAILY [facility] Last Admin: 08/31/17 10:16 Dose: 0.5 mcg Duloxetine HCl (Cymbalta -) 20 mg PO DAILY [facility] Last Admin: 08/31/17 10:14 Dose: 20 mg Ergocalciferol (Drisdol -) 50,000 unit PO Tu@1000 [facility] Ferrous Sulfate (Feosol -) 325 mg PO DAILY [facility] Last Admin: 08/31/17 10:14 Dose: 325 mg Glimepiride (Amaryl -) 4 mg PO DAILY@0700 [facility] Last Admin: 08/31/17 06:22 Dose: Not Given Heparin Sodium (Porcine) (Heparin -) 5,000 unit SQ BID [facility] Last Admin: 08/31/17 10:15 Dose: 5,000 unit Levofloxacin (Levaquin 250 Mg Premixed Ivpb -) 250 mg in 50 mls @ 100 mls/hr IVPB Q48H [facility] PRN Reason: Protocol Last Admin: 08/30/17 23:04 Dose: 100 mls/hr Insulin Detemir (Levemir Vial) 14 units SQ BID@0700,2200 [facility] Last Admin: 08/31/17 06:22 Dose: Not Given Labetalol HCl (Normodyne -) 100 mg PO TID [facility] Last Admin: 08/31/17 06:22 Dose: 100 mg Losartan Potassium (Cozaar -) 25 mg PO DAILY [facility] Last Admin: 08/31/17 10:15 Dose: 25 mg Sevelamer Carbonate (Renvela -) 800 mg PO TIDCM [facility] Last Admin: 08/31/17 07:50 Dose: 800 mg 81 year old woman with PMhx of ESRD on HD (started 8 months ago), Diabetic Nephropathy, Hypertension, HLD, DM who presented with PNA from PMD office. #ESRD on HD #PNA #Hypertension #DM #Chronic Anemia #Renal Osteodystrophy s/p HD yesterday, no indication for treatment today next dialysis tomorrow continue Abx as per ID, check stool for c. diff given diarrhea continue Losartan, Labetalol and amlodipine Will continue SHILPA with HD maintain on Calcitriol and phos binders Ryan Dixon DO
--- NOTE | 2017-08-31 23:41 | PN ---
Progress Note, Physician History of Present Illness: Pt still w/ cough - Current Medication List Current Medications: Active Medications Acetaminophen (Tylenol -) 650 mg PO Q6H PRN PRN Reason: FEVER Last Admin: 08/30/17 14:06 Dose: 650 mg Albuterol/Ipratropium (Duoneb -) 1 amp NEB Q6H PRN PRN Reason: SHORTNESS OF BREATH Last Admin: 08/30/17 15:55 Dose: 1 amp Amlodipine Besylate (Norvasc -) 5 mg PO DAILY [facility] Last Admin: 08/31/17 10:14 Dose: 5 mg Aspirin (Asa -) 81 mg PO DAILY [facility] Last Admin: 08/31/17 10:14 Dose: 81 mg Calcitriol (Rocaltrol -) 0.5 mcg PO DAILY [facility] Last Admin: 08/31/17 10:16 Dose: 0.5 mcg Duloxetine HCl (Cymbalta -) 20 mg PO DAILY [facility] Last Admin: 08/31/17 10:14 Dose: 20 mg Epoetin Angel (Procrit -) 6,000 unit IVPUSH ONCE ONE Stop: 09/01/17 06:01 Ergocalciferol (Drisdol -) 50,000 unit PO Tu@1000 [facility] Ferrous Sulfate (Feosol -) 325 mg PO DAILY [facility] Last Admin: 08/31/17 10:14 Dose: 325 mg Glimepiride (Amaryl -) 4 mg PO DAILY@0700 [facility] Last Admin: 08/31/17 06:22 Dose: Not Given Heparin Sodium (Porcine) (Heparin -) 5,000 unit SQ BID [facility] Last Admin: 08/31/17 22:28 Dose: 5,000 unit Levofloxacin (Levaquin 250 Mg Premixed Ivpb -) 250 mg in 50 mls @ 100 mls/hr IVPB Q48H NURIS PRN Reason: Protocol Last Admin: 08/30/17 23:04 Dose: 100 mls/hr Sodium Chloride (Normal Saline -) 250 mls @ 3,000 mls/hr IV PRN PRN PRN Reason: Hypotension during Dialysis Insulin Detemir (Levemir Vial) 14 units SQ BID@0700,2200 [facility] Last Admin: 08/31/17 22:28 Dose: 14 units Labetalol HCl (Normodyne -) 100 mg PO TID [facility] Last Admin: 08/31/17 22:28 Dose: 100 mg Losartan Potassium (Cozaar -) 25 mg PO DAILY [facility] Last Admin: 08/31/17 10:15 Dose: 25 mg Sevelamer Carbonate (Renvela -) 800 mg PO TIDCM [facility] Last Admin: 08/31/17 16:52 Dose: 800 mg - Objective Vital Signs: Vital Signs Temperature 98.4 F 08/31/17 20:59 Pulse Rate 74 08/31/17 20:59 Respiratory Rate 20 08/31/17 20:59 Blood Pressure 140/70 08/31/17 20:59 O2 Sat by Pulse Oximetry (%) 92 L 08/31/17 20:56 HENT: Yes: WNL Neck: Yes: WNL, Supple Cardiovascular: Yes: WNL Respiratory: Yes: Rhonchi Gastrointestinal: Yes: WNL, Normal Bowel Sounds, Soft Edema: No Labs: CBC, BMP 08/31/17 05:00 08/31/17 05:00 INR, PTT INR 1.16 (0.82-1.09) H 08/28/17 16:35 Problem List - Problems (1) CHF (congestive heart failure) Assessment/Plan: Acute on chronic diastolic heart failure Volume overload to be corrected w/ dialysis Monitor electrolytes Code(s): I50.9 - HEART FAILURE, UNSPECIFIED Qualifiers: Heart failure type: diastolic Heart failure chronicity: acute on chronic Qualified Code(s): I50.33 - Acute on chronic diastolic (congestive) heart failure (2) PNA (pneumonia) Assessment/Plan: Multilobar pneumonia Cont IV levaquin Cont nebulizers Pulmonary consult noted Code(s): J18.9 - PNEUMONIA, UNSPECIFIED ORGANISM (3) ESRD (end stage renal disease) Assessment/Plan: Dialysis as per renal Cont calcitrol/sevelamer Code(s): N18.6 - END STAGE RENAL DISEASE (4) Diabetes mellitus Assessment/Plan: Cont amaryl and levemir Code(s): E11.9 - TYPE 2 DIABETES MELLITUS WITHOUT COMPLICATIONS (5) HTN (hypertension) Assessment/Plan: BP stable Contlosartan/norvasc Code(s): I10 - ESSENTIAL (PRIMARY) HYPERTENSION Qualifiers: Hypertension type: essential hypertension Qualified Code(s): I10 - Essential (primary) hypertension
[2017-09-01 00:13] LABS: HBSAG SCREEN Negative (Negative); HEP A AB, IGM Negative (Negative); HEP B CORE AB, TOT Negative (Negative)
[2017-09-01] MEDS: LABETALOL HCL 100 MG TABLET (FP) PO SCH ×3 (06:25→23:05)
[2017-09-01] MEDS: GLIMEPIRIDE 4 MG TABLET (FP) PO SCH (06:25)
[2017-09-01] MEDS: INSULIN (LEVEMIR) 100 UNITS/ML UNITS SQ SCH ×2 (06:25→23:00)
[2017-09-01] MEDS: SEVELAMER CARBONATE 800 MG TAB (FP) PO SCH ×3 (09:02→17:12)
[2017-09-01] MEDS: DULoxetine HCL 20 MG CAPSULE.DR (FP) PO SCH (09:02)
[2017-09-01] MEDS: HEPARIN NA (PORCINE) 5,000 UNITS/ML 1ML VIAL SQ SCH ×2 (09:04→23:05)
[2017-09-01] MEDS: CALCITRIOL 0.25 MCG CAPSULE (FP) PO SCH (09:04)
[2017-09-01] MEDS: ASPIRIN 81 MG CHEWABLE TABLETS PO SCH (09:05)
[2017-09-01] MEDS: FERROUS SO4 325 MG TABLET (FP) PO SCH (09:05)
[2017-09-01 09:59] LABS: ANION GAP 7 (8-16); BLOOD UREA NITROGEN 29 mg/dL (7-18); CALCIUM 7.3 mg/dL (8.5-10.1); CHLORIDE 101 mmol/L (98-107); CO2 27 mmol/L (21-32); CREATININE 5.2 mg/dL (0.55-1.02); GLUCOSE,RANDOM 142 mg/dL (74-106); PHOSPHOROUS 3.7 mg/dL (2.5-4.9); POTASSIUM 3.5 mmol/L (3.5-5.1); SODIUM 135 mmol/L (136-145)
[2017-09-01] MEDS ORDERED: EPOETIN ALFA 3,000 UNIT/1 ML ML IVPUSH ONE (10:00)
[2017-09-01] MEDS ORDERED: SODIUM CHLORIDE 250 ML IV PRN (10:00)
[2017-09-01 10:05] LABS: HEMATOCRIT 29.7 % (32.4-45.2); HEMOGLOBIN 9.8 GM/dL (10.7-15.3); MCH 33.2 pg (25.7-33.7); MCHC 33.2 g/dl (32.0-36.0); MEAN PLT VOLUME 8.6 fl (7.5-11.1); PLATELET COUNT 235 K/MM3 (134-434); RBC 2.97 M/mm3 (3.60-5.2); RDW 15.4 % (11.6-15.6); WHITE BLOOD COUNT 7.5 K/mm3 (4.0-10.0)
--- NOTE | 2017-09-01 11:17 | PN ---
Progress Note (short form) - Note Progress Note: PULMONARY States breathing better, cough nonproductive. Still with diarrhea. No further fevers. Last Vital Signs Temp Pulse Resp BP Pulse Ox 98.2 F 68 20 153/50 92 L 09/01/17 10:25 09/01/17 10:25 09/01/17 10:25 09/01/17 10:25 08/31/17 20:56 Gen: NAD at rest Heart: RRR Lung: decreased breath sounds at the bases Abd: soft, nontender Ext: no edema CBC, BMP 09/01/17 09:00 09/01/17 09:00 Active Medications Acetaminophen (Tylenol -) 650 mg PO Q6H PRN PRN Reason: FEVER Last Admin: 08/30/17 14:06 Dose: 650 mg Albuterol/Ipratropium (Duoneb -) 1 amp NEB Q6H PRN PRN Reason: SHORTNESS OF BREATH Last Admin: 08/30/17 15:55 Dose: 1 amp Amlodipine Besylate (Norvasc -) 5 mg PO DAILY [facility] Last Admin: 08/31/17 10:14 Dose: 5 mg Aspirin (Asa -) 81 mg PO DAILY [facility] Last Admin: 09/01/17 09:05 Dose: 81 mg Calcitriol (Rocaltrol -) 0.5 mcg PO DAILY [facility] Last Admin: 09/01/17 09:04 Dose: 0.5 mcg Duloxetine HCl (Cymbalta -) 20 mg PO DAILY [facility] Last Admin: 09/01/17 09:02 Dose: 20 mg Ergocalciferol (Drisdol -) 50,000 unit PO Tu@1000 [facility] Ferrous Sulfate (Feosol -) 325 mg PO DAILY [facility] Last Admin: 09/01/17 09:05 Dose: 325 mg Glimepiride (Amaryl -) 4 mg PO DAILY@0700 [facility] Last Admin: 09/01/17 06:25 Dose: Not Given Heparin Sodium (Porcine) (Heparin -) 5,000 unit SQ BID [facility] Last Admin: 09/01/17 09:04 Dose: 5,000 unit Levofloxacin (Levaquin 250 Mg Premixed Ivpb -) 250 mg in 50 mls @ 100 mls/hr IVPB Q48H NURIS PRN Reason: Protocol Last Admin: 08/30/17 23:04 Dose: 100 mls/hr Sodium Chloride (Normal Saline -) 250 mls @ 3,000 mls/hr IV PRN PRN PRN Reason: Hypotension during Dialysis Insulin Detemir (Levemir Vial) 14 units SQ BID@0700,2200 [facility] Last Admin: 09/01/17 06:25 Dose: Not Given Labetalol HCl (Normodyne -) 100 mg PO TID [facility] Last Admin: 09/01/17 06:25 Dose: 100 mg Losartan Potassium (Cozaar -) 25 mg PO DAILY [facility] Last Admin: 08/31/17 10:15 Dose: 25 mg Sevelamer Carbonate (Renvela -) 800 mg PO TIDCM [facility] Last Admin: 09/01/17 09:02 Dose: 800 mg A/P Pneumonia Acute on Chronic Diastolic Heart Failure ESRD on HD HTN DM - continue antibiotics - send stool for C diff - HD per renal - inhaled bronchodilators, O2 as needed - DVT prophylaxis
[2017-09-01] MEDS: amLODIPine BESYLATE 5 MG TABLET (FP) PO SCH (13:50)
[2017-09-01] MEDS: LOSARTAN POTASSIUM 25 MG TABLET PO SCH (13:50)
--- NOTE | 2017-09-01 15:45 | PN ---
Progress Note, Physician History of Present Illness: Coverage for Dr. Barbour States breathing better, continued cough nonproductive. Still with diarrhea. No further fevers. - Current Medication List Current Medications: Active Medications Acetaminophen (Tylenol -) 650 mg PO Q6H PRN PRN Reason: FEVER Last Admin: 08/30/17 14:06 Dose: 650 mg Albuterol/Ipratropium (Duoneb -) 1 amp NEB Q6H PRN PRN Reason: SHORTNESS OF BREATH Last Admin: 08/30/17 15:55 Dose: 1 amp Amlodipine Besylate (Norvasc -) 5 mg PO DAILY [facility] Last Admin: 09/01/17 13:50 Dose: 5 mg Aspirin (Asa -) 81 mg PO DAILY [facility] Last Admin: 09/01/17 09:05 Dose: 81 mg Calcitriol (Rocaltrol -) 0.5 mcg PO DAILY [facility] Last Admin: 09/01/17 09:04 Dose: 0.5 mcg Duloxetine HCl (Cymbalta -) 20 mg PO DAILY [facility] Last Admin: 09/01/17 09:02 Dose: 20 mg Ergocalciferol (Drisdol -) 50,000 unit PO Tu@1000 [facility] Ferrous Sulfate (Feosol -) 325 mg PO DAILY [facility] Last Admin: 09/01/17 09:05 Dose: 325 mg Glimepiride (Amaryl -) 4 mg PO DAILY@0700 [facility] Last Admin: 09/01/17 06:25 Dose: Not Given Heparin Sodium (Porcine) (Heparin -) 5,000 unit SQ BID [facility] Last Admin: 09/01/17 09:04 Dose: 5,000 unit Levofloxacin (Levaquin 250 Mg Premixed Ivpb -) 250 mg in 50 mls @ 100 mls/hr IVPB Q48H NURIS PRN Reason: Protocol Last Admin: 08/30/17 23:04 Dose: 100 mls/hr Sodium Chloride (Normal Saline -) 250 mls @ 3,000 mls/hr IV PRN PRN PRN Reason: Hypotension during Dialysis Insulin Detemir (Levemir Vial) 14 units SQ BID@0700,2200 [facility] Last Admin: 09/01/17 06:25 Dose: Not Given Labetalol HCl (Normodyne -) 100 mg PO TID [facility] Last Admin: 09/01/17 13:51 Dose: 100 mg Losartan Potassium (Cozaar -) 25 mg PO DAILY [facility] Last Admin: 09/01/17 13:50 Dose: 25 mg Sevelamer Carbonate (Renvela -) 800 mg PO TIDCM [facility] Last Admin: 09/01/17 13:50 Dose: 800 mg - Objective Vital Signs: Vital Signs Temperature 98.4 F 09/01/17 14:10 Pulse Rate 74 09/01/17 14:10 Respiratory Rate 20 09/01/17 14:10 Blood Pressure 132/53 09/01/17 14:10 O2 Sat by Pulse Oximetry (%) 92 L 08/31/17 20:56 Constitutional: Yes: No Distress, Calm Neck: Yes: Supple Cardiovascular: Yes: Regular Rate and Rhythm Respiratory: Yes: Regular, Diminished, On Nasal O2 Gastrointestinal: Yes: Normal Bowel Sounds, Soft Edema: No Labs: CBC, BMP 09/01/17 09:00 09/01/17 09:00 INR, PTT INR 1.16 (0.82-1.09) H 08/28/17 16:35 Problem List - Problems (1) CHF (congestive heart failure) Code(s): I50.9 - HEART FAILURE, UNSPECIFIED Qualifiers: Heart failure type: diastolic Heart failure chronicity: acute on chronic Qualified Code(s): I50.33 - Acute on chronic diastolic (congestive) heart failure (2) ESRD (end stage renal disease) Code(s): N18.6 - END STAGE RENAL DISEASE (3) PNA (pneumonia) Code(s): J18.9 - PNEUMONIA, UNSPECIFIED ORGANISM (4) Diabetes mellitus Code(s): E11.9 - TYPE 2 DIABETES MELLITUS WITHOUT COMPLICATIONS (5) HTN (hypertension) Code(s): I10 - ESSENTIAL (PRIMARY) HYPERTENSION Qualifiers: Hypertension type: essential hypertension Qualified Code(s): I10 - Essential (primary) hypertension Assessment/Plan 1. Pneumonia 2. Acute on Chronic Diastolic Heart Failure 3. ESRD on HD 4. HTN 5. DM REC: 1. Continue Norvasc 5 qd, ASA 81 qd, labetolol 100 tid, losartan 25 qd 2. O2, BD as needed 2. HD- more aggressive volume removal as tolerated. 3. ABx as per PMD f/u cultures and stool for c diff 4. DVT prophylaxis
--- NOTE | 2017-09-01 16:48 | PN ---
Progress Note (short form) - Note Progress Note: ESRD on HD (started 8 months ago), Diabetic Nephropathy, Hypertension, HLD, DM admitted with PNA s/p hemodialysis earlier today Current Medications Acetaminophen (Tylenol -) 650 mg PO Q6H PRN PRN Reason: FEVER Last Admin: 08/30/17 14:06 Dose: 650 mg Albuterol/Ipratropium (Duoneb -) 1 amp NEB Q6H PRN PRN Reason: SHORTNESS OF BREATH Last Admin: 08/30/17 15:55 Dose: 1 amp Amlodipine Besylate (Norvasc -) 5 mg PO DAILY [facility] Last Admin: 09/01/17 13:50 Dose: 5 mg Aspirin (Asa -) 81 mg PO DAILY [facility] Last Admin: 09/01/17 09:05 Dose: 81 mg Calcitriol (Rocaltrol -) 0.5 mcg PO DAILY [facility] Last Admin: 09/01/17 09:04 Dose: 0.5 mcg Duloxetine HCl (Cymbalta -) 20 mg PO DAILY [facility] Last Admin: 09/01/17 09:02 Dose: 20 mg Ergocalciferol (Drisdol -) 50,000 unit PO Tu@1000 [facility] Ferrous Sulfate (Feosol -) 325 mg PO DAILY [facility] Last Admin: 09/01/17 09:05 Dose: 325 mg Glimepiride (Amaryl -) 4 mg PO DAILY@0700 [facility] Last Admin: 09/01/17 06:25 Dose: Not Given Heparin Sodium (Porcine) (Heparin -) 5,000 unit SQ BID [facility] Last Admin: 09/01/17 09:04 Dose: 5,000 unit Levofloxacin (Levaquin 250 Mg Premixed Ivpb -) 250 mg in 50 mls @ 100 mls/hr IVPB Q48H NURIS PRN Reason: Protocol Last Admin: 08/30/17 23:04 Dose: 100 mls/hr Sodium Chloride (Normal Saline -) 250 mls @ 3,000 mls/hr IV PRN PRN PRN Reason: Hypotension during Dialysis Insulin Detemir (Levemir Vial) 14 units SQ BID@0700,2200 [facility] Last Admin: 09/01/17 06:25 Dose: Not Given Labetalol HCl (Normodyne -) 100 mg PO TID [facility] Last Admin: 09/01/17 13:51 Dose: 100 mg Losartan Potassium (Cozaar -) 25 mg PO DAILY [facility] Last Admin: 09/01/17 13:50 Dose: 25 mg Sevelamer Carbonate (Renvela -) 800 mg PO TIDCM [facility] Last Admin: 09/01/17 13:50 Dose: 800 mg Last Vital Signs Temp Pulse Resp BP Pulse Ox 98.4 F 74 20 132/53 92 L 09/01/17 14:10 09/01/17 14:10 09/01/17 14:10 09/01/17 14:10 09/01/17 09:00 alert in nad lungs wheezing and rhochi heart reg abd soft nontender ext no edema CBC, BMP 09/01/17 09:00 09/01/17 09:00 ESRD on HD PNA Hypertension DM Chronic Anemia Renal Osteodystrophy Diarrhea- c diff neg so far next dialysis tomorrow spring
--- NOTE | 2017-09-01 16:50 | PN ---
Progress Note, Physician History of Present Illness: Pt still w/ cough - Current Medication List Current Medications: Active Medications Acetaminophen (Tylenol -) 650 mg PO Q6H PRN PRN Reason: FEVER Last Admin: 08/30/17 14:06 Dose: 650 mg Albuterol/Ipratropium (Duoneb -) 1 amp NEB Q6H PRN PRN Reason: SHORTNESS OF BREATH Last Admin: 08/30/17 15:55 Dose: 1 amp Amlodipine Besylate (Norvasc -) 5 mg PO DAILY [facility] Last Admin: 09/01/17 13:50 Dose: 5 mg Aspirin (Asa -) 81 mg PO DAILY [facility] Last Admin: 09/01/17 09:05 Dose: 81 mg Calcitriol (Rocaltrol -) 0.5 mcg PO DAILY [facility] Last Admin: 09/01/17 09:04 Dose: 0.5 mcg Duloxetine HCl (Cymbalta -) 20 mg PO DAILY [facility] Last Admin: 09/01/17 09:02 Dose: 20 mg Ergocalciferol (Drisdol -) 50,000 unit PO Tu@1000 [facility] Ferrous Sulfate (Feosol -) 325 mg PO DAILY [facility] Last Admin: 09/01/17 09:05 Dose: 325 mg Glimepiride (Amaryl -) 4 mg PO DAILY@0700 [facility] Last Admin: 09/01/17 06:25 Dose: Not Given Heparin Sodium (Porcine) (Heparin -) 5,000 unit SQ BID [facility] Last Admin: 09/01/17 09:04 Dose: 5,000 unit Levofloxacin (Levaquin 250 Mg Premixed Ivpb -) 250 mg in 50 mls @ 100 mls/hr IVPB Q48H [facility] PRN Reason: Protocol Last Admin: 08/30/17 23:04 Dose: 100 mls/hr Sodium Chloride (Normal Saline -) 250 mls @ 3,000 mls/hr IV PRN PRN PRN Reason: Hypotension during Dialysis Insulin Detemir (Levemir Vial) 14 units SQ BID@0700,2200 [facility] Last Admin: 09/01/17 06:25 Dose: Not Given Labetalol HCl (Normodyne -) 100 mg PO TID [facility] Last Admin: 09/01/17 13:51 Dose: 100 mg Losartan Potassium (Cozaar -) 25 mg PO DAILY [facility] Last Admin: 09/01/17 13:50 Dose: 25 mg Sevelamer Carbonate (Renvela -) 800 mg PO TIDCM [facility] Last Admin: 09/01/17 13:50 Dose: 800 mg - Objective Vital Signs: Vital Signs Temperature 98.4 F 09/01/17 14:10 Pulse Rate 74 09/01/17 14:10 Respiratory Rate 20 09/01/17 14:10 Blood Pressure 132/53 09/01/17 14:10 O2 Sat by Pulse Oximetry (%) 92 L 09/01/17 09:00 Constitutional: Yes: Well Nourished HENT: Yes: WNL Neck: Yes: WNL, Supple Cardiovascular: Yes: WNL, Regular Rate and Rhythm Respiratory: Yes: Diminished Gastrointestinal: Yes: WNL, Normal Bowel Sounds, Soft Edema: LLE: Trace, RLE: Trace Labs: CBC, BMP 09/01/17 09:00 09/01/17 09:00 INR, PTT INR 1.16 (0.82-1.09) H 08/28/17 16:35 Problem List - Problems (1) PNA (pneumonia) Assessment/Plan: Multilobar pneumonia Cont IV levaquin Cont nebulizers Code(s): J18.9 - PNEUMONIA, UNSPECIFIED ORGANISM (2) CHF (congestive heart failure) Assessment/Plan: Acute on chronic diastolic heart failure Volume overload to be corrected w/ dialysis Monitor electrolytes Code(s): I50.9 - HEART FAILURE, UNSPECIFIED Qualifiers: Heart failure type: diastolic Heart failure chronicity: acute on chronic Qualified Code(s): I50.33 - Acute on chronic diastolic (congestive) heart failure (3) ESRD (end stage renal disease) Assessment/Plan: Dialysis as per renal Cont calcitrol/sevelamer Code(s): N18.6 - END STAGE RENAL DISEASE (4) Diabetes mellitus Assessment/Plan: Cont amaryl and levemir Code(s): E11.9 - TYPE 2 DIABETES MELLITUS WITHOUT COMPLICATIONS (5) HTN (hypertension) Assessment/Plan: BP stable Contlosartan/norvasc Code(s): I10 - ESSENTIAL (PRIMARY) HYPERTENSION Qualifiers: Hypertension type: essential hypertension Qualified Code(s): I10 - Essential (primary) hypertension
[2017-09-01] MEDS: ACETAMINOPHEN 325 MG TABLET (FP) PO PRN (23:30)
[2017-09-02] MEDS: ALBUTEROL SO4 2.5/IPRATROPIUM 0.5 INH SOL 3 ML VIAL.NEB. NEB PRN (06:10)
[2017-09-02] MEDS: INSULIN (LEVEMIR) 100 UNITS/ML UNITS SQ SCH ×2 (06:38→22:12)
[2017-09-02] MEDS: GLIMEPIRIDE 4 MG TABLET (FP) PO SCH (06:38)
[2017-09-02] MEDS ORDERED: DEXTROSE 50%-WATER 25 GM/50 ML DISP.SYRIN ONE (06:50)
[2017-09-02] MEDS: LABETALOL HCL 100 MG TABLET (FP) PO SCH ×3 (06:55→22:12)
[2017-09-02] MEDS ORDERED: DEXTROSE 50%-WATER 25 GM/50 ML DISP.SYRIN IVPUSH ONE (07:00)
[2017-09-02] MEDS: SEVELAMER CARBONATE 800 MG TAB (FP) PO SCH ×3 (08:05→17:33)
[2017-09-02] MEDS: CALCITRIOL 0.25 MCG CAPSULE (FP) PO SCH (09:11)
[2017-09-02] MEDS: FERROUS SO4 325 MG TABLET (FP) PO SCH (09:12)
[2017-09-02] MEDS: HEPARIN NA (PORCINE) 5,000 UNITS/ML 1ML VIAL SQ SCH ×2 (09:12→22:12)
[2017-09-02] MEDS: LOSARTAN POTASSIUM 25 MG TABLET PO SCH (09:12)
[2017-09-02] MEDS: ASPIRIN 81 MG CHEWABLE TABLETS PO SCH (09:12)
[2017-09-02] MEDS: amLODIPine BESYLATE 5 MG TABLET (FP) PO SCH (09:12)
[2017-09-02] MEDS: DULoxetine HCL 20 MG CAPSULE.DR (FP) PO SCH (09:54)
--- NOTE | 2017-09-02 11:55 | PN ---
Progress Note, Physician History of Present Illness: Coverage for Dr. Barbour States breathing better, continued cough nonproductive. Diarrhea improving. No further fevers. - Current Medication List Current Medications: Active Medications Acetaminophen (Tylenol -) 650 mg PO Q6H PRN PRN Reason: FEVER Last Admin: 09/01/17 23:30 Dose: 650 mg Albuterol/Ipratropium (Duoneb -) 1 amp NEB Q6H PRN PRN Reason: SHORTNESS OF BREATH Last Admin: 09/02/17 06:10 Dose: 1 amp Amlodipine Besylate (Norvasc -) 5 mg PO DAILY [facility] Last Admin: 09/02/17 09:12 Dose: 5 mg Aspirin (Asa -) 81 mg PO DAILY [facility] Last Admin: 09/02/17 09:12 Dose: 81 mg Calcitriol (Rocaltrol -) 0.5 mcg PO DAILY [facility] Last Admin: 09/02/17 09:11 Dose: 0.5 mcg Duloxetine HCl (Cymbalta -) 20 mg PO DAILY [facility] Last Admin: 09/02/17 09:54 Dose: 20 mg Ergocalciferol (Drisdol -) 50,000 unit PO Tu@1000 [facility] Ferrous Sulfate (Feosol -) 325 mg PO DAILY [facility] Last Admin: 09/02/17 09:12 Dose: 325 mg Glimepiride (Amaryl -) 4 mg PO DAILY@0700 [facility] Last Admin: 09/02/17 06:38 Dose: Not Given Heparin Sodium (Porcine) (Heparin -) 5,000 unit SQ BID [facility] Last Admin: 09/02/17 09:12 Dose: 5,000 unit Levofloxacin (Levaquin 250 Mg Premixed Ivpb -) 250 mg in 50 mls @ 100 mls/hr IVPB Q48H NURIS PRN Reason: Protocol Last Admin: 09/01/17 23:10 Dose: 100 mls/hr Sodium Chloride (Normal Saline -) 250 mls @ 3,000 mls/hr IV PRN PRN PRN Reason: Hypotension during Dialysis Insulin Detemir (Levemir Vial) 14 units SQ BID@0700,2200 [facility] Last Admin: 09/02/17 06:38 Dose: Not Given Labetalol HCl (Normodyne -) 100 mg PO TID [facility] Last Admin: 09/02/17 06:55 Dose: 100 mg Losartan Potassium (Cozaar -) 25 mg PO DAILY [facility] Last Admin: 09/02/17 09:12 Dose: 25 mg Sevelamer Carbonate (Renvela -) 800 mg PO TIDCM [facility] Last Admin: 09/02/17 11:48 Dose: 800 mg - Objective Vital Signs: Vital Signs Temperature 98.4 F 09/02/17 09:00 Pulse Rate 60 09/02/17 09:00 Respiratory Rate 20 09/02/17 09:00 Blood Pressure 102/57 09/02/17 09:00 O2 Sat by Pulse Oximetry (%) 100 09/02/17 09:00 Constitutional: Yes: No Distress, Calm, Thin Neck: Yes: Supple Cardiovascular: Yes: Regular Rate and Rhythm Respiratory: Yes: Regular, Diminished, On Nasal O2 Gastrointestinal: Yes: Normal Bowel Sounds, Soft Edema: No Labs: CBC, BMP 09/01/17 09:00 09/01/17 09:00 INR, PTT INR 1.16 (0.82-1.09) H 08/28/17 16:35 - ....Imaging EKG: Report Reviewed (Tele: SR) Problem List - Problems (1) CHF (congestive heart failure) Code(s): I50.9 - HEART FAILURE, UNSPECIFIED Qualifiers: Heart failure type: diastolic Heart failure chronicity: acute on chronic Qualified Code(s): I50.33 - Acute on chronic diastolic (congestive) heart failure (2) ESRD (end stage renal disease) Code(s): N18.6 - END STAGE RENAL DISEASE (3) PNA (pneumonia) Code(s): J18.9 - PNEUMONIA, UNSPECIFIED ORGANISM (4) Diabetes mellitus Code(s): E11.9 - TYPE 2 DIABETES MELLITUS WITHOUT COMPLICATIONS (5) HTN (hypertension) Code(s): I10 - ESSENTIAL (PRIMARY) HYPERTENSION Qualifiers: Hypertension type: essential hypertension Qualified Code(s): I10 - Essential (primary) hypertension Assessment/Plan 1. Pneumonia 2. Acute on Chronic Diastolic Heart Failure 3. ESRD on HD 4. HTN 5. DM REC: 1. Continue Norvasc 5 qd, ASA 81 qd, labetolol 100 tid, losartan 25 qd 2. O2, BD as needed 3. HD with more aggressive volume removal as tolerated. 4. ABx as per PMD f/u cultures and stool for c diff negative 5. DVT prophylaxis
--- NOTE | 2017-09-02 11:58 | PN ---
Progress Note (short form) - Note Progress Note: PULMONARY Still with diarrhea. States breathing better, cough nonproductive. No further fevers. Last Vital Signs Temp Pulse Resp BP Pulse Ox 98.4 F 60 20 102/57 100 09/02/17 09:00 09/02/17 09:00 09/02/17 09:00 09/02/17 09:00 09/02/17 09:00 Gen: NAD at rest Heart: RRR Lung: scattered rhonchi, wheezes Abd: soft, nontender Ext: no edema CBC, BMP 09/01/17 09:00 09/01/17 09:00 Active Medications Acetaminophen (Tylenol -) 650 mg PO Q6H PRN PRN Reason: FEVER Last Admin: 09/01/17 23:30 Dose: 650 mg Albuterol/Ipratropium (Duoneb -) 1 amp NEB Q6H PRN PRN Reason: SHORTNESS OF BREATH Last Admin: 09/02/17 06:10 Dose: 1 amp Amlodipine Besylate (Norvasc -) 5 mg PO DAILY [facility] Last Admin: 09/02/17 09:12 Dose: 5 mg Aspirin (Asa -) 81 mg PO DAILY [facility] Last Admin: 09/02/17 09:12 Dose: 81 mg Calcitriol (Rocaltrol -) 0.5 mcg PO DAILY [facility] Last Admin: 09/02/17 09:11 Dose: 0.5 mcg Duloxetine HCl (Cymbalta -) 20 mg PO DAILY [facility] Last Admin: 09/02/17 09:54 Dose: 20 mg Ergocalciferol (Drisdol -) 50,000 unit PO Tu@1000 [facility] Ferrous Sulfate (Feosol -) 325 mg PO DAILY [facility] Last Admin: 09/02/17 09:12 Dose: 325 mg Glimepiride (Amaryl -) 4 mg PO DAILY@0700 [facility] Last Admin: 09/02/17 06:38 Dose: Not Given Heparin Sodium (Porcine) (Heparin -) 5,000 unit SQ BID [facility] Last Admin: 09/02/17 09:12 Dose: 5,000 unit Levofloxacin (Levaquin 250 Mg Premixed Ivpb -) 250 mg in 50 mls @ 100 mls/hr IVPB Q48H [facility] PRN Reason: Protocol Last Admin: 09/01/17 23:10 Dose: 100 mls/hr Sodium Chloride (Normal Saline -) 250 mls @ 3,000 mls/hr IV PRN PRN PRN Reason: Hypotension during Dialysis Insulin Detemir (Levemir Vial) 14 units SQ BID@0700,2200 [facility] Last Admin: 09/02/17 06:38 Dose: Not Given Labetalol HCl (Normodyne -) 100 mg PO TID [facility] Last Admin: 09/02/17 06:55 Dose: 100 mg Losartan Potassium (Cozaar -) 25 mg PO DAILY [facility] Last Admin: 09/02/17 09:12 Dose: 25 mg Sevelamer Carbonate (Renvela -) 800 mg PO TIDCM [facility] Last Admin: 09/02/17 11:48 Dose: 800 mg A/P Pneumonia Acute on Chronic Diastolic Heart Failure ESRD on HD HTN DM - continue antibiotics - HD per renal - inhaled bronchodilators, will make nebs standing, if still wheezing can start short course of steroids - DVT prophylaxis
--- NOTE | 2017-09-02 18:41 | PN ---
Progress Note (short form) - Note Progress Note: ESRD on HD (started 8 months ago), Diabetic Nephropathy, Hypertension, HLD, DM admitted with PNA s/p hemodialysis earlier today Current Medications Acetaminophen (Tylenol -) 650 mg PO Q6H PRN PRN Reason: FEVER Last Admin: 09/01/17 23:30 Dose: 650 mg Albuterol/Ipratropium (Duoneb -) 1 amp NEB Q6H PRN PRN Reason: SHORTNESS OF BREATH Last Admin: 09/02/17 06:10 Dose: 1 amp Amlodipine Besylate (Norvasc -) 5 mg PO DAILY [facility] Last Admin: 09/02/17 09:12 Dose: 5 mg Aspirin (Asa -) 81 mg PO DAILY [facility] Last Admin: 09/02/17 09:12 Dose: 81 mg Calcitriol (Rocaltrol -) 0.5 mcg PO DAILY [facility] Last Admin: 09/02/17 09:11 Dose: 0.5 mcg Duloxetine HCl (Cymbalta -) 20 mg PO DAILY [facility] Last Admin: 09/02/17 09:54 Dose: 20 mg Ergocalciferol (Drisdol -) 50,000 unit PO Tu@1000 [facility] Ferrous Sulfate (Feosol -) 325 mg PO DAILY [facility] Last Admin: 09/02/17 09:12 Dose: 325 mg Glimepiride (Amaryl -) 4 mg PO DAILY@0700 [facility] Last Admin: 09/02/17 06:38 Dose: Not Given Heparin Sodium (Porcine) (Heparin -) 5,000 unit SQ BID [facility] Last Admin: 09/02/17 09:12 Dose: 5,000 unit Levofloxacin (Levaquin 250 Mg Premixed Ivpb -) 250 mg in 50 mls @ 100 mls/hr IVPB Q48H [facility] PRN Reason: Protocol Last Admin: 09/01/17 23:10 Dose: 100 mls/hr Sodium Chloride (Normal Saline -) 250 mls @ 3,000 mls/hr IV PRN PRN PRN Reason: Hypotension during Dialysis Insulin Detemir (Levemir Vial) 14 units SQ BID@0700,2200 [facility] Last Admin: 09/02/17 06:38 Dose: Not Given Labetalol HCl (Normodyne -) 100 mg PO TID [facility] Last Admin: 09/02/17 14:41 Dose: 100 mg Losartan Potassium (Cozaar -) 25 mg PO DAILY [facility] Last Admin: 09/02/17 09:12 Dose: 25 mg Sevelamer Carbonate (Renvela -) 800 mg PO TIDCM [facility] Last Admin: 09/02/17 17:33 Dose: 800 mg alert in nad Last Vital Signs Temp Pulse Resp BP Pulse Ox 99.0 F 69 20 141/67 100 09/02/17 17:00 09/02/17 17:00 09/02/17 17:00 09/02/17 17:00 09/02/17 09:00 Lungs clearer heart reg rate Abd soft Ext no edema CBC, BMP 09/01/17 09:00 09/01/17 09:00 ESRD on HD PNA Hypertension DM Chronic Anemia Renal Osteodystrophy Diarrhea- c diff neg so far next dialysis tomorrow spring
--- NOTE | 2017-09-02 19:23 | PN ---
Progress Note, Physician History of Present Illness: Pt has had some diarrhea although states it has improved - Current Medication List Current Medications: Active Medications Acetaminophen (Tylenol -) 650 mg PO Q6H PRN PRN Reason: FEVER Last Admin: 09/01/17 23:30 Dose: 650 mg Albuterol/Ipratropium (Duoneb -) 1 amp NEB Q6H PRN PRN Reason: SHORTNESS OF BREATH Last Admin: 09/02/17 06:10 Dose: 1 amp Amlodipine Besylate (Norvasc -) 5 mg PO DAILY [facility] Last Admin: 09/02/17 09:12 Dose: 5 mg Aspirin (Asa -) 81 mg PO DAILY [facility] Last Admin: 09/02/17 09:12 Dose: 81 mg Calcitriol (Rocaltrol -) 0.5 mcg PO DAILY [facility] Last Admin: 09/02/17 09:11 Dose: 0.5 mcg Duloxetine HCl (Cymbalta -) 20 mg PO DAILY [facility] Last Admin: 09/02/17 09:54 Dose: 20 mg Ergocalciferol (Drisdol -) 50,000 unit PO Tu@1000 [facility] Ferrous Sulfate (Feosol -) 325 mg PO DAILY [facility] Last Admin: 09/02/17 09:12 Dose: 325 mg Glimepiride (Amaryl -) 4 mg PO DAILY@0700 [facility] Last Admin: 09/02/17 06:38 Dose: Not Given Heparin Sodium (Porcine) (Heparin -) 5,000 unit SQ BID [facility] Last Admin: 09/02/17 09:12 Dose: 5,000 unit Levofloxacin (Levaquin 250 Mg Premixed Ivpb -) 250 mg in 50 mls @ 100 mls/hr IVPB Q48H [facility] PRN Reason: Protocol Last Admin: 09/01/17 23:10 Dose: 100 mls/hr Sodium Chloride (Normal Saline -) 250 mls @ 3,000 mls/hr IV PRN PRN PRN Reason: Hypotension during Dialysis Insulin Detemir (Levemir Vial) 14 units SQ BID@0700,2200 [facility] Last Admin: 09/02/17 06:38 Dose: Not Given Labetalol HCl (Normodyne -) 100 mg PO TID [facility] Last Admin: 09/02/17 14:41 Dose: 100 mg Losartan Potassium (Cozaar -) 25 mg PO DAILY [facility] Last Admin: 09/02/17 09:12 Dose: 25 mg Sevelamer Carbonate (Renvela -) 800 mg PO TIDCM [facility] Last Admin: 09/02/17 17:33 Dose: 800 mg - Objective Vital Signs: Vital Signs Temperature 99.0 F 09/02/17 17:00 Pulse Rate 69 09/02/17 17:00 Respiratory Rate 20 09/02/17 17:00 Blood Pressure 141/67 09/02/17 17:00 O2 Sat by Pulse Oximetry (%) 100 09/02/17 09:00 HENT: Yes: WNL Neck: Yes: WNL, Supple Cardiovascular: Yes: WNL, Regular Rate and Rhythm Respiratory: Yes: Wheezes Gastrointestinal: Yes: WNL, Normal Bowel Sounds, Soft Edema: LLE: Trace, RLE: Trace Labs: CBC, BMP 09/01/17 09:00 09/01/17 09:00 INR, PTT INR 1.16 (0.82-1.09) H 08/28/17 16:35 Problem List - Problems (1) PNA (pneumonia) Assessment/Plan: Multilobar pneumonia Cont IV levaquin Cont nebulizers May need short course steroids as per pulmonary Code(s): J18.9 - PNEUMONIA, UNSPECIFIED ORGANISM (2) Diarrhea Assessment/Plan: Resolving Stool negative for c diff Code(s): R19.7 - DIARRHEA, UNSPECIFIED (3) CHF (congestive heart failure) Assessment/Plan: Acute on chronic diastolic heart failure Volume overload to be corrected w/ dialysis Monitor electrolytes Code(s): I50.9 - HEART FAILURE, UNSPECIFIED Qualifiers: Heart failure type: diastolic Heart failure chronicity: acute on chronic Qualified Code(s): I50.33 - Acute on chronic diastolic (congestive) heart failure (4) ESRD (end stage renal disease) Assessment/Plan: Dialysis as per renal Cont calcitrol/sevelamer Code(s): N18.6 - END STAGE RENAL DISEASE (5) Diabetes mellitus Assessment/Plan: Cont amaryl and levemir Code(s): E11.9 - TYPE 2 DIABETES MELLITUS WITHOUT COMPLICATIONS (6) HTN (hypertension) Assessment/Plan: BP stable Cont losartan/norvasc/labetalol/asa Code(s): I10 - ESSENTIAL (PRIMARY) HYPERTENSION Qualifiers: Hypertension type: essential hypertension Qualified Code(s): I10 - Essential (primary) hypertension (7) Anemia Assessment/Plan: Due to chronic dz/ESRD Cont Ferrous sulfate Epogen as per renal Check cbc in am Code(s): D64.9 - ANEMIA, UNSPECIFIED (8) Depression Assessment/Plan: Cont cymbalta Code(s): F32.9 - MAJOR DEPRESSIVE DISORDER, SINGLE EPISODE, UNSPECIFIED
[2017-09-03] MEDS: LABETALOL HCL 100 MG TABLET (FP) PO SCH ×3 (05:55→22:28)
[2017-09-03] MEDS: GLIMEPIRIDE 4 MG TABLET (FP) PO SCH (06:10)
[2017-09-03] MEDS: INSULIN (LEVEMIR) 100 UNITS/ML UNITS SQ SCH ×2 (06:10→22:35)
[2017-09-03 06:33] LABS: BASO % 0.4 % (0-2.0); HEMATOCRIT 29.7 % (32.4-45.2); LYMPH % 25.1 % (8-40); MCH 33.6 pg (25.7-33.7); MCHC 33.7 g/dl (32.0-36.0); MEAN CELL VOLUME 99.5 fl (80-96); MEAN PLT VOLUME 8.2 fl (7.5-11.1); MONO % 5.5 % (3.8-10.2); PLATELET COUNT 270 K/MM3 (134-434); RBC 2.98 M/mm3 (3.60-5.2); RDW 15.5 % (11.6-15.6); WHITE BLOOD COUNT 7.4 K/mm3 (4.0-10.0)
[2017-09-03 07:11] LABS: ALBUMIN 2.3 g/dl (3.4-5.0); ANION GAP 9 (8-16); BILIRUBIN,TOTAL 0.5 mg/dL (0.2-1.0); BLOOD UREA NITROGEN 20 mg/dL (7-18); CALCIUM 7.6 mg/dL (8.5-10.1); CHLORIDE 100 mmol/L (98-107); CO2 29 mmol/L (21-32); GLUCOSE,RANDOM 191 mg/dL (74-106); POTASSIUM 3.4 mmol/L (3.5-5.1); SGOT/AST 16 U/L (15-37); SGPT/ALT 12 U/L (12-78); SODIUM 138 mmol/L (136-145)
[2017-09-03 07:12] LABS: ALK PHOS 62 U/L (45-117); TOT PROT 5.6 g/dl (6.4-8.2)
--- NOTE | 2017-09-03 08:49 | PN ---
Progress Note, Physician Chief Complaint: no new complaints History of Present Illness: TELE: NSR - Current Medication List Current Medications: Active Medications Acetaminophen (Tylenol -) 650 mg PO Q6H PRN PRN Reason: FEVER Last Admin: 09/01/17 23:30 Dose: 650 mg Amlodipine Besylate (Norvasc -) 5 mg PO DAILY [facility] Last Admin: 09/02/17 09:12 Dose: 5 mg Aspirin (Asa -) 81 mg PO DAILY [facility] Last Admin: 09/02/17 09:12 Dose: 81 mg Calcitriol (Rocaltrol -) 0.5 mcg PO DAILY [facility] Last Admin: 09/02/17 09:11 Dose: 0.5 mcg Duloxetine HCl (Cymbalta -) 20 mg PO DAILY [facility] Last Admin: 09/02/17 09:54 Dose: 20 mg Ergocalciferol (Drisdol -) 50,000 unit PO Tu@1000 [facility] Ferrous Sulfate (Feosol -) 325 mg PO DAILY [facility] Last Admin: 09/02/17 09:12 Dose: 325 mg Glimepiride (Amaryl -) 4 mg PO DAILY@0700 [facility] Last Admin: 09/03/17 06:10 Dose: 4 mg Heparin Sodium (Porcine) (Heparin -) 5,000 unit SQ BID [facility] Last Admin: 09/02/17 22:12 Dose: 5,000 unit Levofloxacin (Levaquin 250 Mg Premixed Ivpb -) 250 mg in 50 mls @ 100 mls/hr IVPB Q48H [facility] PRN Reason: Protocol Last Admin: 09/01/17 23:10 Dose: 100 mls/hr Sodium Chloride (Normal Saline -) 250 mls @ 3,000 mls/hr IV PRN PRN PRN Reason: Hypotension during Dialysis Insulin Detemir (Levemir Vial) 14 units SQ BID@0700,2200 [facility] Last Admin: 09/03/17 06:10 Dose: 14 units Labetalol HCl (Normodyne -) 100 mg PO TID [facility] Last Admin: 09/03/17 05:55 Dose: 100 mg Losartan Potassium (Cozaar -) 25 mg PO DAILY [facility] Last Admin: 09/02/17 09:12 Dose: 25 mg Sevelamer Carbonate (Renvela -) 800 mg PO TIDCM [facility] Last Admin: 09/02/17 17:33 Dose: 800 mg - Objective Vital Signs: Vital Signs Temperature 98.7 F 09/03/17 05:08 Pulse Rate 71 09/03/17 05:08 Respiratory Rate 20 09/03/17 05:08 Blood Pressure 152/56 09/03/17 05:08 O2 Sat by Pulse Oximetry (%) 95 09/02/17 20:42 Constitutional: Yes: Calm Cardiovascular: Yes: Regular Rate and Rhythm Respiratory: Yes: Rhonchi Gastrointestinal: Yes: Soft Edema: No Neurological: Yes: Alert Labs: CBC, BMP 09/03/17 06:10 09/03/17 06:10 INR, PTT INR 1.16 (0.82-1.09) H 08/28/17 16:35 Microbiology 08/28/17 19:18 Blood - Peripheral Venous Blood Culture - Final NO GROWTH AFTER 5 DAYS INCUBATION 08/28/17 19:18 Blood - Peripheral Venous Blood Culture - Final NO GROWTH AFTER 5 DAYS INCUBATION Laboratory Tests 09/03/17 09/03/17 06:10 06:10 WBC 7.4 Hgb 10.0 L Plt Count 270 Sodium 138 Potassium 3.4 L BUN 20 H Creatinine 5.0 H - ....Imaging EKG: Image Reviewed Assessment/Plan Assessment/Plan 1. Pneumonia 2. Acute on Chronic Diastolic Heart Failure 3. ESRD on HD 4. HTN 5. DM REC: 1. Continue Norvasc 5 qd, ASA 81 qd, labetolol 100 tid, losartan 25 qd 2. O2, BD as needed 3. HD with more aggressive volume removal as tolerated. 4. ABx as per PMD f/u cultures and stool for c diff negative 5. DVT prophylaxis
[2017-09-03] MEDS: SEVELAMER CARBONATE 800 MG TAB (FP) PO SCH ×3 (08:55→18:07)
[2017-09-03] MEDS: HEPARIN NA (PORCINE) 5,000 UNITS/ML 1ML VIAL SQ SCH ×2 (10:55→22:28)
[2017-09-03] MEDS: LOSARTAN POTASSIUM 25 MG TABLET PO SCH (10:56)
[2017-09-03] MEDS: DULoxetine HCL 20 MG CAPSULE.DR (FP) PO SCH (10:56)
[2017-09-03] MEDS: ASPIRIN 81 MG CHEWABLE TABLETS PO SCH (10:56)
[2017-09-03] MEDS: CALCITRIOL 0.25 MCG CAPSULE (FP) PO SCH (10:56)
[2017-09-03] MEDS: FERROUS SO4 325 MG TABLET (FP) PO SCH (10:56)
[2017-09-03] MEDS: amLODIPine BESYLATE 5 MG TABLET (FP) PO SCH (10:56)
[2017-09-03] MEDS ORDERED: BISMUTH SUBSALICYLATE 524 MG/30 ML UD PO ONE (11:30)
[2017-09-03] MEDS ORDERED: LOPERAMIDE HCL 2 MG CAPSULE PO ONE (15:00)
--- NOTE | 2017-09-03 22:18 | PN ---
Progress Note, Physician History of Present Illness: Pt still w/ diarrhea - Current Medication List Current Medications: Active Medications Acetaminophen (Tylenol -) 650 mg PO Q6H PRN PRN Reason: FEVER Last Admin: 09/01/17 23:30 Dose: 650 mg Amlodipine Besylate (Norvasc -) 5 mg PO DAILY [facility] Last Admin: 09/03/17 10:56 Dose: 5 mg Aspirin (Asa -) 81 mg PO DAILY [facility] Last Admin: 09/03/17 10:56 Dose: 81 mg Calcitriol (Rocaltrol -) 0.5 mcg PO DAILY [facility] Last Admin: 09/03/17 10:56 Dose: 0.5 mcg Duloxetine HCl (Cymbalta -) 20 mg PO DAILY [facility] Last Admin: 09/03/17 10:56 Dose: 20 mg Ergocalciferol (Drisdol -) 50,000 unit PO Tu@1000 [facility] Ferrous Sulfate (Feosol -) 325 mg PO DAILY [facility] Last Admin: 09/03/17 10:56 Dose: 325 mg Glimepiride (Amaryl -) 4 mg PO DAILY@0700 [facility] Last Admin: 09/03/17 06:10 Dose: 4 mg Heparin Sodium (Porcine) (Heparin -) 5,000 unit SQ BID [facility] Last Admin: 09/03/17 10:55 Dose: 5,000 unit Levofloxacin (Levaquin 250 Mg Premixed Ivpb -) 250 mg in 50 mls @ 100 mls/hr IVPB Q48H [facility]UR[facility] PRN Reason: Protocol Last Admin: 09/01/17 23:10 Dose: 100 mls/hr Sodium Chloride (Normal Saline -) 250 mls @ 3,000 mls/hr IV PRN PRN PRN Reason: Hypotension during Dialysis Insulin Detemir (Levemir Vial) 14 units SQ BID@0700,2200 [facility] Last Admin: 09/03/17 06:10 Dose: 14 units Labetalol HCl (Normodyne -) 100 mg PO TID [facility] Last Admin: 09/03/17 13:02 Dose: 100 mg Losartan Potassium (Cozaar -) 25 mg PO DAILY [facility] Last Admin: 09/03/17 10:56 Dose: 25 mg Sevelamer Carbonate (Renvela -) 800 mg PO TIDCM [facility] Last Admin: 09/03/17 18:07 Dose: 800 mg - Objective Vital Signs: Vital Signs Temperature 97.7 F 09/03/17 18:00 Pulse Rate 62 09/03/17 18:00 Respiratory Rate 20 09/03/17 18:00 Blood Pressure 136/49 09/03/17 18:00 O2 Sat by Pulse Oximetry (%) 97 09/03/17 10:00 Neck: Yes: WNL, Supple Cardiovascular: Yes: WNL, Regular Rate and Rhythm Respiratory: Yes: WNL, Regular, CTA Bilaterally Gastrointestinal: Yes: WNL, Normal Bowel Sounds, Soft Labs: CBC, BMP 09/03/17 06:10 09/03/17 06:10 INR, PTT INR 1.16 (0.82-1.09) H 08/28/17 16:35 Problem List - Problems (1) PNA (pneumonia) Assessment/Plan: Multilobar pneumonia Cont IV levaquin Cont nebulizers Code(s): J18.9 - PNEUMONIA, UNSPECIFIED ORGANISM (2) Diarrhea Assessment/Plan: Pt given dose of immodium for diarrhea Stool negative for c diff Code(s): R19.7 - DIARRHEA, UNSPECIFIED (3) CHF (congestive heart failure) Assessment/Plan: Acute on chronic diastolic heart failure Volume overload to be corrected w/ dialysis Monitor electrolytes Code(s): I50.9 - HEART FAILURE, UNSPECIFIED Qualifiers: Heart failure type: diastolic Heart failure chronicity: acute on chronic Qualified Code(s): I50.33 - Acute on chronic diastolic (congestive) heart failure (4) ESRD (end stage renal disease) Code(s): N18.6 - END STAGE RENAL DISEASE (5) Diabetes mellitus Assessment/Plan: Cont amaryl and levemir Code(s): E11.9 - TYPE 2 DIABETES MELLITUS WITHOUT COMPLICATIONS (6) HTN (hypertension) Assessment/Plan: BP stable Cont losartan/norvasc/labetalol/asa Code(s): I10 - ESSENTIAL (PRIMARY) HYPERTENSION Qualifiers: Hypertension type: essential hypertension Qualified Code(s): I10 - Essential (primary) hypertension (7) Anemia Assessment/Plan: Due to chronic dz/ESRD Cont Ferrous sulfate Epogen as per renal Code(s): D64.9 - ANEMIA, UNSPECIFIED (8) Depression Assessment/Plan: Cont cymbalta Code(s): F32.9 - MAJOR DEPRESSIVE DISORDER, SINGLE EPISODE, UNSPECIFIED
[2017-09-04] MEDS: GLIMEPIRIDE 4 MG TABLET (FP) PO SCH (06:24)
[2017-09-04] MEDS: LABETALOL HCL 100 MG TABLET (FP) PO SCH ×3 (06:24→23:22)
[2017-09-04] MEDS ORDERED: INSULIN (NOVOLOG) ASPART 100 UNITS/ML 10ML VIAL ONE (06:32)
[2017-09-04] MEDS: INSULIN (LEVEMIR) 100 UNITS/ML UNITS SQ SCH (06:34)
[2017-09-04] MEDS: SEVELAMER CARBONATE 800 MG TAB (FP) PO SCH ×3 (08:14→17:48)
--- NOTE | 2017-09-04 08:40 | PN ---
Progress Note, Physician Chief Complaint: C diff negative TELE: NSR - Current Medication List Current Medications: Active Medications Acetaminophen (Tylenol -) 650 mg PO Q6H PRN PRN Reason: FEVER Last Admin: 09/01/17 23:30 Dose: 650 mg Amlodipine Besylate (Norvasc -) 5 mg PO DAILY [facility] Last Admin: 09/03/17 10:56 Dose: 5 mg Aspirin (Asa -) 81 mg PO DAILY [facility] Last Admin: 09/03/17 10:56 Dose: 81 mg Calcitriol (Rocaltrol -) 0.5 mcg PO DAILY [facility] Last Admin: 09/03/17 10:56 Dose: 0.5 mcg Duloxetine HCl (Cymbalta -) 20 mg PO DAILY [facility] Last Admin: 09/03/17 10:56 Dose: 20 mg Ergocalciferol (Drisdol -) 50,000 unit PO Tu@1000 [facility] Ferrous Sulfate (Feosol -) 325 mg PO DAILY [facility] Last Admin: 09/03/17 10:56 Dose: 325 mg Glimepiride (Amaryl -) 4 mg PO DAILY@0700 [facility] Last Admin: 09/04/17 06:24 Dose: 4 mg Heparin Sodium (Porcine) (Heparin -) 5,000 unit SQ BID [facility] Last Admin: 09/03/17 22:28 Dose: 5,000 unit Levofloxacin (Levaquin 250 Mg Premixed Ivpb -) 250 mg in 50 mls @ 100 mls/hr IVPB Q48H [facility] PRN Reason: Protocol Last Admin: 09/03/17 22:28 Dose: 100 mls/hr Sodium Chloride (Normal Saline -) 250 mls @ 3,000 mls/hr IV PRN PRN PRN Reason: Hypotension during Dialysis Insulin Detemir (Levemir Vial) 14 units SQ BID@0700,2200 [facility] Last Admin: 09/04/17 06:34 Dose: 14 units Labetalol HCl (Normodyne -) 100 mg PO TID [facility] Last Admin: 09/04/17 06:24 Dose: 100 mg Losartan Potassium (Cozaar -) 25 mg PO DAILY [facility] Last Admin: 09/03/17 10:56 Dose: 25 mg Sevelamer Carbonate (Renvela -) 800 mg PO TIDCM [facility] Last Admin: 09/03/17 18:07 Dose: 800 mg - Objective Vital Signs: Vital Signs Temperature 98.2 F 09/04/17 06:00 Pulse Rate 76 09/04/17 06:00 Respiratory Rate 20 09/04/17 06:00 Blood Pressure 155/60 09/04/17 06:00 O2 Sat by Pulse Oximetry (%) 98 09/03/17 21:00 Constitutional: Yes: No Distress Cardiovascular: Yes: Regular Rate and Rhythm Respiratory: Yes: CTA Bilaterally Gastrointestinal: Yes: Soft Edema: No Neurological: Yes: Alert, Oriented ...Motor Strength: WNL Psychiatric: Yes: WNL Labs: CBC, BMP 09/03/17 06:10 09/03/17 06:10 INR, PTT INR 1.16 (0.82-1.09) H 08/28/17 16:35 - ....Imaging EKG: Image Reviewed Assessment/Plan Assessment/Plan 1. Pneumonia 2. Acute on Chronic Diastolic Heart Failure 3. ESRD on HD 4. HTN 5. DM REC: 1. Continue Norvasc 5 qd, ASA 81 qd, labetolol 100 tid, losartan 25 qd 2. O2, BD as needed 3. HD with more aggressive volume removal as tolerated. 4. ABx as per PMD f/u cultures and stool for c diff negative 5. DVT prophylaxis
[2017-09-04] MEDS ORDERED: SODIUM CHLORIDE 250 ML IV PRN (09:14)
[2017-09-04] MEDS ORDERED: HEPARIN NA (PORCINE) 5,000 UNITS/ML 1ML VIAL IVPUSH ONE (09:45)
[2017-09-04] MEDS ORDERED: ERGOCALCIFEROL (VITAMIN D2) 50,000 UNIT CAPSULE (FP) PO SCH (10:00)
--- NOTE | 2017-09-04 10:40 | PN ---
Progress Note, Physician History of Present Illness: PULMONARY ALERT,FEELING BETTER,LESS CONGESTION,ON HD - Current Medication List Current Medications: Active Medications Acetaminophen (Tylenol -) 650 mg PO Q6H PRN PRN Reason: FEVER Last Admin: 09/01/17 23:30 Dose: 650 mg Amlodipine Besylate (Norvasc -) 5 mg PO DAILY [facility] Last Admin: 09/03/17 10:56 Dose: 5 mg Aspirin (Asa -) 81 mg PO DAILY [facility] Last Admin: 09/03/17 10:56 Dose: 81 mg Calcitriol (Rocaltrol -) 0.5 mcg PO DAILY [facility] Last Admin: 09/03/17 10:56 Dose: 0.5 mcg Duloxetine HCl (Cymbalta -) 20 mg PO DAILY [facility] Last Admin: 09/03/17 10:56 Dose: 20 mg Epoetin Angel (Epogen -) 4,000 unit IVPUSH ONCE ONE Stop: 09/04/17 11:01 Ergocalciferol (Drisdol -) 50,000 unit PO Tu@1000 [facility] Ferrous Sulfate (Feosol -) 325 mg PO DAILY [facility] Last Admin: 09/03/17 10:56 Dose: 325 mg Glimepiride (Amaryl -) 4 mg PO DAILY@0700 [facility] Last Admin: 09/04/17 06:24 Dose: 4 mg Heparin Sodium (Porcine) (Heparin -) 5,000 unit SQ BID [facility] Last Admin: 09/03/17 22:28 Dose: 5,000 unit Levofloxacin (Levaquin 250 Mg Premixed Ivpb -) 250 mg in 50 mls @ 100 mls/hr IVPB Q48H [facility] PRN Reason: Protocol Last Admin: 09/03/17 22:28 Dose: 100 mls/hr Sodium Chloride (Normal Saline -) 250 mls @ 3,000 mls/hr IV PRN PRN PRN Reason: Hypotension during Dialysis Sodium Chloride (Normal Saline -) 250 mls @ 3,000 mls/hr IV PRN PRN PRN Reason: Hypotension during Dialysis Stop: 09/05/17 09:14 Insulin Detemir (Levemir Vial) 14 units SQ BID@0700,2200 [facility] Last Admin: 09/04/17 06:34 Dose: 14 units Labetalol HCl (Normodyne -) 100 mg PO TID [facility] Last Admin: 09/04/17 06:24 Dose: 100 mg Losartan Potassium (Cozaar -) 25 mg PO DAILY [facility] Last Admin: 09/03/17 10:56 Dose: 25 mg Sevelamer Carbonate (Renvela -) 800 mg PO TIDCM [facility] Last Admin: 09/04/17 08:14 Dose: 800 mg - Objective Vital Signs: Vital Signs Temperature 98.2 F 09/04/17 06:00 Pulse Rate 76 09/04/17 06:00 Respiratory Rate 20 09/04/17 06:00 Blood Pressure 155/60 09/04/17 06:00 O2 Sat by Pulse Oximetry (%) 98 09/03/17 21:00 Constitutional: Yes: Well Nourished, Calm Eyes: Yes: WNL HENT: Yes: WNL Neck: Yes: WNL Cardiovascular: Yes: Regular Rate and Rhythm, S1, S2 Respiratory: Yes: Rhonchi (FEW SCATTERED RHONCHI) Gastrointestinal: Yes: Normal Bowel Sounds, Soft Extremities: Yes: WNL Edema: No Labs: CBC, BMP Problem List - Problems (1) ESRD (end stage renal disease) Code(s): N18.6 - END STAGE RENAL DISEASE (2) CHF (congestive heart failure) Code(s): I50.9 - HEART FAILURE, UNSPECIFIED Qualifiers: Heart failure type: diastolic Heart failure chronicity: acute on chronic Qualified Code(s): I50.33 - Acute on chronic diastolic (congestive) heart failure (3) PNA (pneumonia) Code(s): J18.9 - PNEUMONIA, UNSPECIFIED ORGANISM (4) Diabetes mellitus Code(s): E11.9 - TYPE 2 DIABETES MELLITUS WITHOUT COMPLICATIONS (5) HTN (hypertension) Code(s): I10 - ESSENTIAL (PRIMARY) HYPERTENSION Qualifiers: Hypertension type: essential hypertension Qualified Code(s): I10 - Essential (primary) hypertension Assessment/Plan MP BILATERAL PNEUMONIA DIASTOLIC CHF ESRD ON HD HTN DM PLAN IV ABX SUPPLEMENTAL O2 INHALED BRONCHODILATORS HD PER RENAL CHEST X-RAY TODAY DR COLEMAN Problem List - Problems (1) ESRD (end stage renal disease) Code(s): N18.6 - END STAGE RENAL DISEASE (2) CHF (congestive heart failure) Code(s): I50.9 - HEART FAILURE, UNSPECIFIED (3) PNA (pneumonia) Code(s): J18.9 - PNEUMONIA, UNSPECIFIED ORGANISM (4) Diabetes mellitus Code(s): E11.9 - TYPE 2 DIABETES MELLITUS WITHOUT COMPLICATIONS (5) HTN (hypertension) Code(s): I10 - ESSENTIAL (PRIMARY) HYPERTENSION
[2017-09-04] MEDS: CALCITRIOL 0.25 MCG CAPSULE (FP) PO SCH (10:48)
[2017-09-04] MEDS: amLODIPine BESYLATE 5 MG TABLET (FP) PO SCH (10:49)
[2017-09-04] MEDS: FERROUS SO4 325 MG TABLET (FP) PO SCH (10:49)
[2017-09-04] MEDS: HEPARIN NA (PORCINE) 5,000 UNITS/ML 1ML VIAL SQ SCH ×2 (10:49→23:22)
[2017-09-04 10:50] LABS: HEMATOCRIT 29.1 % (32.4-45.2); HEMOGLOBIN 9.6 GM/dL (10.7-15.3); MCH 32.8 pg (25.7-33.7); MCHC 33.1 g/dl (32.0-36.0); MEAN CELL VOLUME 99.1 fl (80-96); MEAN PLT VOLUME 7.6 fl (7.5-11.1); PLATELET COUNT 273 K/MM3 (134-434); RBC 2.94 M/mm3 (3.60-5.2); RDW 15.2 % (11.6-15.6); WHITE BLOOD COUNT 7.9 K/mm3 (4.0-10.0)
[2017-09-04] MEDS: LOSARTAN POTASSIUM 25 MG TABLET PO SCH (10:50)
[2017-09-04] MEDS: ASPIRIN 81 MG CHEWABLE TABLETS PO SCH (10:51)
[2017-09-04] MEDS ORDERED: EPOETIN ALFA 2,000 UNIT/1 ML VIAL IVPUSH ONE (11:00)
[2017-09-04 12:07] LABS: ANION GAP 9 (8-16); BLOOD UREA NITROGEN 28 mg/dL (7-18); CALCIUM 7.3 mg/dL (8.5-10.1); CHLORIDE 100 mmol/L (98-107); CO2 25 mmol/L (21-32); CREATININE 6.1 mg/dL (0.55-1.02); GLUCOSE,RANDOM 106 mg/dL (74-106); PHOSPHOROUS 3.7 mg/dL (2.5-4.9); POTASSIUM 3.7 mmol/L (3.5-5.1); SODIUM 134 mmol/L (136-145)
[2017-09-04] MEDS ORDERED: DEXTROSE 50%-WATER 25 GM/50 ML DISP.SYRIN ONE (14:34)
--- NOTE | 2017-09-04 14:58 | PN ---
Progress Note (short form) - Note Progress Note: Renal follow up for ESRD on HD Pt seen and examined during dialysis BP stable, Goal UF is 2.5L access functioning well pt reports continued diarrhea cough and sob is improved Vital Signs Temperature 98.2 F 09/04/17 10:15 Pulse Rate 67 09/04/17 14:00 Respiratory Rate 18 09/04/17 14:00 Blood Pressure 134/62 09/04/17 14:00 O2 Sat by Pulse Oximetry (%) 98 09/04/17 09:00 Intake & Output 09/01/17 09/02/17 09/03/17 09/04/17 23:59 23:59 23:59 23:59 Intake Total 750 360 550 300 Balance 750 360 550 300 Weight 59.874 kg 59.33 kg 58.967 kg NAD on NC O2 MMM, NO JVD RRR, No M/R dec BS soft NT/ND No LE edema, clubbing or cyanosis Right arm AVF CBC, BMP 09/04/17 10:20 09/04/17 10:20 Current Medications Acetaminophen (Tylenol -) 650 mg PO Q6H PRN PRN Reason: FEVER Last Admin: 09/01/17 23:30 Dose: 650 mg Amlodipine Besylate (Norvasc -) 5 mg PO DAILY [facility] Last Admin: 09/03/17 10:56 Dose: 5 mg Aspirin (Asa -) 81 mg PO DAILY [facility] Last Admin: 09/03/17 10:56 Dose: 81 mg Calcitriol (Rocaltrol -) 0.5 mcg PO DAILY [facility] Last Admin: 09/03/17 10:56 Dose: 0.5 mcg Duloxetine HCl (Cymbalta -) 20 mg PO DAILY [facility] Last Admin: 09/03/17 10:56 Dose: 20 mg Ergocalciferol (Drisdol -) 50,000 unit PO Tu@1000 [facility] Ferrous Sulfate (Feosol -) 325 mg PO DAILY [facility] Last Admin: 09/03/17 10:56 Dose: 325 mg Glimepiride (Amaryl -) 4 mg PO DAILY@0700 [facility] Last Admin: 09/04/17 06:24 Dose: 4 mg Heparin Sodium (Porcine) (Heparin -) 5,000 unit SQ BID [facility] Last Admin: 09/03/17 22:28 Dose: 5,000 unit Levofloxacin (Levaquin 250 Mg Premixed Ivpb -) 250 mg in 50 mls @ 100 mls/hr IVPB Q48H [facility] PRN Reason: Protocol Last Admin: 09/03/17 22:28 Dose: 100 mls/hr Sodium Chloride (Normal Saline -) 250 mls @ 3,000 mls/hr IV PRN PRN PRN Reason: Hypotension during Dialysis Sodium Chloride (Normal Saline -) 250 mls @ 3,000 mls/hr IV PRN PRN PRN Reason: Hypotension during Dialysis Stop: 09/05/17 09:14 Insulin Detemir (Levemir Vial) 14 units SQ BID@0700,2200 [facility] Last Admin: 09/04/17 06:34 Dose: 14 units Labetalol HCl (Normodyne -) 100 mg PO TID [facility] Last Admin: 09/04/17 06:24 Dose: 100 mg Losartan Potassium (Cozaar -) 25 mg PO DAILY [facility] Last Admin: 09/03/17 10:56 Dose: 25 mg Sevelamer Carbonate (Renvela -) 800 mg PO TIDCM [facility] Last Admin: 09/04/17 08:14 Dose: 800 mg 81 year old woman with PMhx of ESRD on HD (started 8 months ago), Diabetic Nephropathy, Hypertension, HLD, DM who presented with PNA from PMD office. #ESRD on HD #PNA #Hypertension #DM #Chronic Anemia #Renal Osteodystrophy Tolerating dialysis well today goal UF is 3L s/p course of Abx for PNA cultures negative C-diff negative (toxin and antigen) will continue SHILPA with HD Ryan Dixon DO
[2017-09-04] MEDS: DULoxetine HCL 20 MG CAPSULE.DR (FP) PO SCH (23:24)
--- NOTE | 2017-09-04 23:25 | PN ---
Progress Note, Physician - Current Medication List Current Medications: Active Medications Acetaminophen (Tylenol -) 650 mg PO Q6H PRN PRN Reason: FEVER Last Admin: 09/01/17 23:30 Dose: 650 mg Amlodipine Besylate (Norvasc -) 5 mg PO DAILY [facility] Last Admin: 09/04/17 10:49 Dose: Not Given Aspirin (Asa -) 81 mg PO DAILY [facility] Last Admin: 09/04/17 10:51 Dose: Not Given Calcitriol (Rocaltrol -) 0.5 mcg PO DAILY [facility] Last Admin: 09/04/17 10:48 Dose: Not Given Duloxetine HCl (Cymbalta -) 20 mg PO DAILY [facility] Last Admin: 09/03/17 10:56 Dose: 20 mg Ergocalciferol (Drisdol -) 50,000 unit PO Tu@1000 [facility] Last Admin: 09/04/17 10:50 Dose: Not Given Ferrous Sulfate (Feosol -) 325 mg PO DAILY [facility] Last Admin: 09/04/17 10:49 Dose: Not Given Glimepiride (Amaryl -) 4 mg PO DAILY@0700 [facility] Last Admin: 09/04/17 06:24 Dose: 4 mg Heparin Sodium (Porcine) (Heparin -) 5,000 unit SQ BID [facility] Last Admin: 09/04/17 10:49 Dose: Not Given Levofloxacin (Levaquin 250 Mg Premixed Ivpb -) 250 mg in 50 mls @ 100 mls/hr IVPB Q48H [facility] PRN Reason: Protocol Last Admin: 09/03/17 22:28 Dose: 100 mls/hr Sodium Chloride (Normal Saline -) 250 mls @ 3,000 mls/hr IV PRN PRN PRN Reason: Hypotension during Dialysis Sodium Chloride (Normal Saline -) 250 mls @ 3,000 mls/hr IV PRN PRN PRN Reason: Hypotension during Dialysis Stop: 09/05/17 09:14 Insulin Detemir (Levemir Vial) 14 units SQ AM [facility] Labetalol HCl (Normodyne -) 100 mg PO TID [facility] Last Admin: 09/04/17 15:18 Dose: 100 mg Losartan Potassium (Cozaar -) 25 mg PO DAILY [facility] Last Admin: 09/04/17 10:50 Dose: Not Given Sevelamer Carbonate (Renvela -) 800 mg PO TIDCM [facility] Last Admin: 09/04/17 17:48 Dose: 800 mg - Objective Vital Signs: Vital Signs Temperature 98.4 F 09/04/17 21:24 Pulse Rate 72 09/04/17 21:24 Respiratory Rate 20 09/04/17 21:24 Blood Pressure 155/60 09/04/17 21:24 O2 Sat by Pulse Oximetry (%) 93 L 09/04/17 21:00 Labs: CBC, BMP 09/04/17 10:20 09/04/17 15:15 INR, PTT INR 1.16 (0.82-1.09) H 08/28/17 16:35 Problem List - Problems (1) PNA (pneumonia) Code(s): J18.9 - PNEUMONIA, UNSPECIFIED ORGANISM (2) Diarrhea Code(s): R19.7 - DIARRHEA, UNSPECIFIED (3) CHF (congestive heart failure) Code(s): I50.9 - HEART FAILURE, UNSPECIFIED Qualifiers: Heart failure type: diastolic Heart failure chronicity: acute on chronic Qualified Code(s): I50.33 - Acute on chronic diastolic (congestive) heart failure (4) ESRD (end stage renal disease) Code(s): N18.6 - END STAGE RENAL DISEASE (5) Diabetes mellitus Code(s): E11.9 - TYPE 2 DIABETES MELLITUS WITHOUT COMPLICATIONS (6) HTN (hypertension) Code(s): I10 - ESSENTIAL (PRIMARY) HYPERTENSION Qualifiers: Hypertension type: essential hypertension Qualified Code(s): I10 - Essential (primary) hypertension (7) Anemia Code(s): D64.9 - ANEMIA, UNSPECIFIED (8) Depression Code(s): F32.9 - MAJOR DEPRESSIVE DISORDER, SINGLE EPISODE, UNSPECIFIED
[2017-09-05] MEDS: INSULIN (LEVEMIR) 100 UNITS/ML UNITS SQ SCH (06:47)
[2017-09-05] MEDS: LABETALOL HCL 100 MG TABLET (FP) PO SCH ×3 (06:47→21:56)
[2017-09-05] MEDS: GLIMEPIRIDE 4 MG TABLET (FP) PO SCH (06:47)
[2017-09-05] MEDS: SEVELAMER CARBONATE 800 MG TAB (FP) PO SCH ×3 (08:02→16:55)
--- NOTE | 2017-09-05 08:31 | PN ---
Progress Note, Physician Chief Complaint: c/o persistent diarrhea History of Present Illness: episode hypoglycemia yest after HD - Current Medication List Current Medications: Active Medications Acetaminophen (Tylenol -) 650 mg PO Q6H PRN PRN Reason: FEVER Last Admin: 09/01/17 23:30 Dose: 650 mg Amlodipine Besylate (Norvasc -) 5 mg PO DAILY [facility] Last Admin: 09/04/17 10:49 Dose: Not Given Aspirin (Asa -) 81 mg PO DAILY [facility] Last Admin: 09/04/17 10:51 Dose: Not Given Calcitriol (Rocaltrol -) 0.5 mcg PO DAILY [facility] Last Admin: 09/04/17 10:48 Dose: Not Given Duloxetine HCl (Cymbalta -) 20 mg PO DAILY [facility] Last Admin: 09/04/17 23:24 Dose: 20 mg Ergocalciferol (Drisdol -) 50,000 unit PO Tu@1000 [facility] Last Admin: 09/04/17 10:50 Dose: Not Given Ferrous Sulfate (Feosol -) 325 mg PO DAILY [facility] Last Admin: 09/04/17 10:49 Dose: Not Given Glimepiride (Amaryl -) 4 mg PO DAILY@0700 [facility] Last Admin: 09/05/17 06:47 Dose: 4 mg Heparin Sodium (Porcine) (Heparin -) 5,000 unit SQ BID [facility] Last Admin: 09/04/17 23:22 Dose: 5,000 unit Levofloxacin (Levaquin 250 Mg Premixed Ivpb -) 250 mg in 50 mls @ 100 mls/hr IVPB Q48H [facility] PRN Reason: Protocol Last Admin: 09/03/17 22:28 Dose: 100 mls/hr Sodium Chloride (Normal Saline -) 250 mls @ 3,000 mls/hr IV PRN PRN PRN Reason: Hypotension during Dialysis Sodium Chloride (Normal Saline -) 250 mls @ 3,000 mls/hr IV PRN PRN PRN Reason: Hypotension during Dialysis Stop: 09/05/17 09:14 Insulin Detemir (Levemir Vial) 14 units SQ AM [facility] Last Admin: 09/05/17 06:47 Dose: 14 units Labetalol HCl (Normodyne -) 100 mg PO TID [facility] Last Admin: 09/05/17 06:47 Dose: 100 mg Losartan Potassium (Cozaar -) 25 mg PO DAILY [facility] Last Admin: 09/04/17 10:50 Dose: Not Given Sevelamer Carbonate (Renvela -) 800 mg PO TIDCM [facility] Last Admin: 09/05/17 08:02 Dose: 800 mg - Objective Vital Signs: Vital Signs Temperature 98.2 F 09/05/17 06:00 Pulse Rate 70 09/05/17 06:00 Respiratory Rate 20 09/05/17 06:00 Blood Pressure 144/58 09/05/17 06:00 O2 Sat by Pulse Oximetry (%) 93 L 09/04/17 21:00 Constitutional: Yes: Calm Cardiovascular: Yes: Regular Rate and Rhythm Respiratory: Yes: Rhonchi Gastrointestinal: Yes: Soft (mildly distended, no rebound) Edema: No Neurological: Yes: Alert Labs: CBC, BMP 09/04/17 10:20 09/04/17 15:15 INR, PTT INR 1.16 (0.82-1.09) H 08/28/17 16:35 Laboratory Tests 09/04/17 10:20 WBC 7.9 Hgb 9.6 L Plt Count 273 - ....Imaging EKG: Image Reviewed (TELE: reviewed, NSR) Assessment/Plan Assessment/Plan 1. Pneumonia 2. Acute on Chronic Diastolic Heart Failure 3. ESRD on HD 4. HTN 5. DM 6. Persistent diarrhea 7. Hypoglycemia REC: 1. Continue Norvasc 5 qd, ASA 81 qd, labetolol 100 tid, losartan 25 qd 2. O2, BD as needed 3. HD with more aggressive volume removal as tolerated. 4. ABx as per PMD f/u cultures and stool for c diff negative, GI consult for persistent diarrhea 5. DVT prophylaxis 6. Decrease dose oral DM meds
[2017-09-05] MEDS: DULoxetine HCL 20 MG CAPSULE.DR (FP) PO SCH (09:52)
[2017-09-05] MEDS: CALCITRIOL 0.25 MCG CAPSULE (FP) PO SCH (09:52)
[2017-09-05] MEDS: amLODIPine BESYLATE 5 MG TABLET (FP) PO SCH (09:53)
[2017-09-05] MEDS: ASPIRIN 81 MG CHEWABLE TABLETS PO SCH (09:53)
[2017-09-05] MEDS: LOSARTAN POTASSIUM 25 MG TABLET PO SCH (09:53)
[2017-09-05] MEDS: FERROUS SO4 325 MG TABLET (FP) PO SCH (09:53)
--- NOTE | 2017-09-05 11:16 | PN ---
Progress Note, Physician History of Present Illness: pulmonary alert,comfortable,-resp distress - Current Medication List Current Medications: Active Medications Acetaminophen (Tylenol -) 650 mg PO Q6H PRN PRN Reason: FEVER Last Admin: 09/01/17 23:30 Dose: 650 mg Amlodipine Besylate (Norvasc -) 5 mg PO DAILY [facility] Last Admin: 09/05/17 09:53 Dose: 5 mg Aspirin (Asa -) 81 mg PO DAILY [facility] Last Admin: 09/05/17 09:53 Dose: 81 mg Calcitriol (Rocaltrol -) 0.5 mcg PO DAILY [facility] Last Admin: 09/05/17 09:52 Dose: 0.5 mcg Duloxetine HCl (Cymbalta -) 20 mg PO DAILY [facility] Last Admin: 09/05/17 09:52 Dose: 20 mg Ergocalciferol (Drisdol -) 50,000 unit PO Tu@1000 [facility] Last Admin: 09/04/17 10:50 Dose: Not Given Ferrous Sulfate (Feosol -) 325 mg PO DAILY [facility] Last Admin: 09/05/17 09:53 Dose: 325 mg Glimepiride (Amaryl -) 2 mg PO DAILY@0700 [facility] Levofloxacin (Levaquin 250 Mg Premixed Ivpb -) 250 mg in 50 mls @ 100 mls/hr IVPB Q48H [facility] PRN Reason: Protocol Last Admin: 09/03/17 22:28 Dose: 100 mls/hr Sodium Chloride (Normal Saline -) 250 mls @ 3,000 mls/hr IV PRN PRN PRN Reason: Hypotension during Dialysis Insulin Detemir (Levemir Vial) 14 units SQ AM [facility] Last Admin: 09/05/17 06:47 Dose: 14 units Labetalol HCl (Normodyne -) 100 mg PO TID [facility] Last Admin: 09/05/17 06:47 Dose: 100 mg Losartan Potassium (Cozaar -) 25 mg PO DAILY [facility] Last Admin: 09/05/17 09:53 Dose: 25 mg Sevelamer Carbonate (Renvela -) 800 mg PO TIDCM [facility] Last Admin: 09/05/17 08:02 Dose: 800 mg - Objective Vital Signs: Vital Signs Temperature 98.2 F 09/05/17 06:00 Pulse Rate 70 09/05/17 06:00 Respiratory Rate 20 09/05/17 06:00 Blood Pressure 144/58 09/05/17 06:00 O2 Sat by Pulse Oximetry (%) 93 L 09/04/17 21:00 Constitutional: Yes: Well Nourished, Calm Eyes: Yes: WNL HENT: Yes: WNL Neck: Yes: WNL Cardiovascular: Yes: Regular Rate and Rhythm, S1, S2 Respiratory: Yes: Rhonchi (few scattered rhonchi) Gastrointestinal: Yes: Normal Bowel Sounds, Soft Extremities: Yes: WNL Edema: No Labs: CBC, BMP 09/04/17 10:20 09/04/17 15:15 INR, PTT INR 1.16 (0.82-1.09) H 08/28/17 16:35 - ....Imaging Chest X-ray: Report Reviewed, Image Reviewed (improved aravind infiltrates) Problem List - Problems (1) ESRD (end stage renal disease) Code(s): N18.6 - END STAGE RENAL DISEASE (2) CHF (congestive heart failure) Code(s): I50.9 - HEART FAILURE, UNSPECIFIED Qualifiers: Heart failure type: diastolic Heart failure chronicity: acute on chronic Qualified Code(s): I50.33 - Acute on chronic diastolic (congestive) heart failure (3) PNA (pneumonia) Code(s): J18.9 - PNEUMONIA, UNSPECIFIED ORGANISM (4) Diabetes mellitus Code(s): E11.9 - TYPE 2 DIABETES MELLITUS WITHOUT COMPLICATIONS (5) HTN (hypertension) Code(s): I10 - ESSENTIAL (PRIMARY) HYPERTENSION Qualifiers: Hypertension type: essential hypertension Qualified Code(s): I10 - Essential (primary) hypertension Assessment/Plan MP BILATERAL PNEUMONIA improved DIASTOLIC CHF ESRD ON HD HTN DM PLAN IV ABX SUPPLEMENTAL O2 INHALED BRONCHODILATORS HD PER RENAL DR COLEMAN Problem List - Problems (1) ESRD (end stage renal disease) Code(s): N18.6 - END STAGE RENAL DISEASE (2) CHF (congestive heart failure) Code(s): I50.9 - HEART FAILURE, UNSPECIFIED (3) PNA (pneumonia) Code(s): J18.9 - PNEUMONIA, UNSPECIFIED ORGANISM (4) Diabetes mellitus Code(s): E11.9 - TYPE 2 DIABETES MELLITUS WITHOUT COMPLICATIONS (5) HTN (hypertension) Code(s): I10 - ESSENTIAL (PRIMARY) HYPERTENSION
--- NOTE | 2017-09-05 15:08 | CON.GI ---
Consult Consult Specialty:: GI Reason for Consultation:: diarrhea - History of Present Illness History of Present Illness: chart reviewed. Events noted. Medical history as noted in H&P..Original admissions for pneumonia. Patient is nicely recovering however noted to have multiple, loose bowel movements per day. Patient reports having chronic diarrhea most of her life. She describes 2-3 loose watery bowel movements per day unless takes Imodium. She takes Imodium usually 3 times per day. Stool toxin for C. difficile on admission was negative. No other stool workup has been done thus far. The patient does not appear toxic, or in distress. Had colonoscopy 2 months ago at [facility]. Reports Poor appetite and weight loss since her few months ago. There is no melena, hematochezia, hematemesis, dysphagia, odynophagia, jaundice. There is no chronic NSAID use. There is no history of inflammatory bowel disease. There is no history of incontinence, or nighttime symptoms. There is no history of recent travel, exposure to ill. Antibiotics started for pneumonia on this admission. hospital employee helped with interpreting from Romanian - History Source History Provided By: Patient - Past Medical History Cardio/Vascular: Yes: HTN Renal/: Yes: Renal Failure ...: No Psych: Yes: Depression Endocrine: Yes: Diabetes Mellitus - Past Surgical History Past Surgical History: Yes: AV Fistula/Graft - Alcohol/Substance Use Hx Alcohol Use: No - Smoking History Smoking history: Never smoked Have you smoked in the past 12 months: No Home Medications - Allergies Allergies/Adverse Reactions: Allergies Allergy/AdvReac Type Severity Reaction Status Date / Time No Known Allergies Allergy Verified 08/28/17 15:39 - Home Medications Home Medications: Ambulatory Orders Acetaminophen with Codeine [Tylenol with Codeine #4 Tablet] 1 tab PO TID PRN 12/20 Ferrous Sulfate [Feosol] 325 mg PO DAILY 01/13/16 Loperamide HCl [Imodium -] 2 mg PO DAILY 01/13/16 Amlodipine Besylate [Norvasc -] 5 mg PO DAILY 08/28/17 Aspirin [ASA -] 81 mg PO DAILY 08/28/17 Calcitriol 0.5 mcg PO DAILY 08/28/17 Duloxetine HCl 20 mg PO DAILY 08/28/17 Ergocalciferol [Vitamin D2] 50,000 unit PO Q7D@1000 08/28/17 Glimepiride 4 mg PO DAILY 08/28/17 Insulin Detemir [Levemir Flextouch] 14 unit SQ BID 08/28/17 Labetalol HCl 100 mg PO TID 08/28/17 Losartan Potassium 25 mg PO DAILY 08/28/17 Sevelamer HCl [Renagel] 800 mg PO TID 08/28/17 Family Disease History - Family Disease History Family History: Unremarkable (noncontributory) Review of Systems Findings/Remarks: as per H&P and HPI Physical Exam-GI Vital Signs: Vital Signs Temperature 98.7 F 09/05/17 09:00 Pulse Rate 65 09/05/17 09:00 Respiratory Rate 20 09/05/17 09:00 Blood Pressure 121/46 09/05/17 09:00 O2 Sat by Pulse Oximetry (%) 93 L 09/05/17 09:00 Constitutional: Yes: Well Nourished, No Distress, Calm Eyes: Yes: Conjunctiva Clear HENT: Yes: Atraumatic Neck: Yes: Supple Cardiovascular: Yes: Regular Rate and Rhythm. No: Bradycardia, Tachycardia Respiratory: Yes: Regular Gastrointestinal Inspection: No: Distention ...Auscultate: Yes: Normoactive Bowel Sounds ...Palpate: Yes: Soft, Splenomegaly. No: Firm/Rigid, Guarding, Tenderness, Tenderness, Epigastium, Tenderness, Rebound Neurological: Yes: Alert, Oriented Labs: CBC, BMP 09/04/17 10:20 09/04/17 15:15 INR, PTT INR 1.16 (0.82-1.09) H 08/28/17 16:35 Laboratory Last Values WBC 7.9 K/mm3 (4.0-10.0) 09/04/17 10:20 RBC 2.94 M/mm3 (3.60-5.2) L 09/04/17 10:20 Hgb 9.6 GM/dL (10.7-15.3) L 09/04/17 10:20 Hct 29.1 % (32.4-45.2) L 09/04/17 10:20 MCV 99.1 fl (80-96) H 09/04/17 10:20 MCH 32.8 pg (25.7-33.7) 09/04/17 10:20 MCHC 33.1 g/dl (32.0-36.0) 09/04/17 10:20 RDW 15.2 % (11.6-15.6) 09/04/17 10:20 Plt Count 273 K/MM3 (134-434) 09/04/17 10:20 MPV 7.6 fl (7.5-11.1) 09/04/17 10:20 Neutrophils % 68.0 % (42.8-82.8) 09/03/17 06:10 Lymphocytes % 25.1 % (8-40) 09/03/17 06:10 Monocytes % 5.5 % (3.8-10.2) 09/03/17 06:10 Eosinophils % 1.0 % (0-4.5) D 09/03/17 06:10 Basophils % 0.4 % (0-2.0) 09/03/17 06:10 PT with INR 13.10 SEC (9.7-13.0) H 08/28/17 16:35 INR 1.16 (0.82-1.09) H 08/28/17 16:35 PTT (Actin FS) 29.2 SECONDS (26.9-34.4) 08/28/17 16:35 Sodium 134 mmol/L (136-145) L 09/04/17 10:20 Potassium 3.7 mmol/L (3.5-5.1) 09/04/17 10:20 Chloride 100 mmol/L (98-107) 09/04/17 10:20 Carbon Dioxide 25 mmol/L (21-32) 09/04/17 10:20 Anion Gap 9 (8-16) 09/04/17 10:20 BUN 28 mg/dL (7-18) H 09/04/17 10:20 Creatinine 6.1 mg/dL (0.55-1.02) H 09/04/17 10:20 Creat Clearance w eGFR 8.27 (>60) 09/03/17 06:10 POC Glucometer 209 UNITS (80-120) 09/05/17 11:50 Random Glucose 130 mg/dL (74-106) H 09/04/17 15:15 Calcium 7.3 mg/dL (8.5-10.1) L 09/04/17 10:20 Phosphorus 3.7 mg/dL (2.5-4.9) 09/04/17 10:20 Total Bilirubin 0.5 mg/dL (0.2-1.0) D 09/03/17 06:10 AST 16 U/L (15-37) 09/03/17 06:10 ALT 12 U/L (12-78) 09/03/17 06:10 Alkaline Phosphatase 62 U/L (45-117) 09/03/17 06:10 Creatine Kinase 42 IU/L (26-192) 08/29/17 06:25 Troponin I 0.04 ng/ml (0.00-0.05) 08/29/17 06:25 B-Natriuretic Peptide 92216.79 pg/ml (5-450) H 08/28/17 16:35 Total Protein 5.6 g/dl (6.4-8.2) L 09/03/17 06:10 Albumin 2.3 g/dl (3.4-5.0) L 09/03/17 06:10 Hep A IgM Ab Confirm Negative (Negative) 08/30/17 09:15 Hepatitis A Ab Total Positive (Negative) H 08/30/17 09:15 Hep Bs Antigen Negative (Negative) 08/30/17 09:15 Hep Bs Antibody Non reactive (.) 08/30/17 09:15 Hep B Core Total Ab Negative (Negative) 08/30/17 09:15 Hep C Ab Diagnostic 0.2 s/co ratio (0.0-0.9) 08/30/17 09:15 Liver Fibrosis Interp (.) 08/30/17 09:15 Problem List - Problems (1) Diarrhea Code(s): R19.7 - DIARRHEA, UNSPECIFIED (2) Anemia Code(s): D64.9 - ANEMIA, UNSPECIFIED (3) CHF (congestive heart failure) Code(s): I50.9 - HEART FAILURE, UNSPECIFIED Qualifiers: Heart failure type: diastolic Heart failure chronicity: acute on chronic Qualified Code(s): I50.33 - Acute on chronic diastolic (congestive) heart failure (4) ESRD (end stage renal disease) Code(s): N18.6 - END STAGE RENAL DISEASE (5) PNA (pneumonia) Code(s): J18.9 - PNEUMONIA, UNSPECIFIED ORGANISM (6) Diabetes mellitus Code(s): E11.9 - TYPE 2 DIABETES MELLITUS WITHOUT COMPLICATIONS (7) HTN (hypertension) Code(s): I10 - ESSENTIAL (PRIMARY) HYPERTENSION Qualifiers: Hypertension type: essential hypertension Qualified Code(s): I10 - Essential (primary) hypertension Assessment/Plan 81-year-old female with chronic diarrhea likely potentiated by end-stage renal disease, acute infection and antibiotic use. Had colonoscopy 2 months ago. Hopefully biopsies, for microscopic colitis, were obtained. Nontoxic. Does not appear to be dehydrated, or in distress. We will send out stool for ova and parasites, cultures however did not suspect infectious etiology at this time. Will restart Imodium 1-2 tablets 3 times a day and observe. serology for celiac sprue, gastrin level, VIP, B12 and folate Avoid NSAIDs.
[2017-09-05] MEDS: LOPERAMIDE HCL 2 MG CAPSULE PO PRN (16:54)
[2017-09-05] MEDS ORDERED: PT OWN MED DRAWER 7, Y5N ONE (17:05)
--- NOTE | 2017-09-05 17:35 | PN ---
Progress Note (short form) - Note Progress Note: Renal follow up for ESRD on HD Pt seen and examined at the bedside awake and alert no acute complaints diarrhea slightly improved was seen by GI Vital Signs Temperature 98.4 F 09/05/17 14:00 Pulse Rate 65 09/05/17 14:00 Respiratory Rate 20 09/05/17 09:00 Blood Pressure 141/53 09/05/17 14:00 O2 Sat by Pulse Oximetry (%) 93 L 09/05/17 09:00 Intake & Output 09/02/17 09/03/17 09/04/17 09/05/17 23:59 23:59 23:59 23:59 Intake Total 360 550 800 220 Balance 360 550 800 220 Weight 59.33 kg 58.967 kg 58.513 kg NAD on NC O2 MMM, NO JVD RRR, No M/R dec BS soft NT/ND No LE edema, clubbing or cyanosis Right arm AVF CBC, BMP 09/04/17 10:20 09/04/17 15:15 Current Medications Acetaminophen (Tylenol -) 650 mg PO Q6H PRN PRN Reason: FEVER Last Admin: 09/01/17 23:30 Dose: 650 mg Amlodipine Besylate (Norvasc -) 5 mg PO DAILY [facility] Last Admin: 09/05/17 09:53 Dose: 5 mg Aspirin (Asa -) 81 mg PO DAILY [facility] Last Admin: 09/05/17 09:53 Dose: 81 mg Calcitriol (Rocaltrol -) 0.5 mcg PO DAILY [facility] Last Admin: 09/05/17 09:52 Dose: 0.5 mcg Duloxetine HCl (Cymbalta -) 20 mg PO DAILY [facility] Last Admin: 09/05/17 09:52 Dose: 20 mg Ergocalciferol (Drisdol -) 50,000 unit PO Tu@1000 [facility] Last Admin: 09/04/17 10:50 Dose: Not Given Ferrous Sulfate (Feosol -) 325 mg PO DAILY [facility] Last Admin: 09/05/17 09:53 Dose: 325 mg Glimepiride (Amaryl -) 2 mg PO DAILY@0700 [facility] Levofloxacin (Levaquin 250 Mg Premixed Ivpb -) 250 mg in 50 mls @ 100 mls/hr IVPB Q48H [facility] PRN Reason: Protocol Last Admin: 09/03/17 22:28 Dose: 100 mls/hr Sodium Chloride (Normal Saline -) 250 mls @ 3,000 mls/hr IV PRN PRN PRN Reason: Hypotension during Dialysis Insulin Detemir (Levemir Vial) 14 units SQ AM [facility] Last Admin: 09/05/17 06:47 Dose: 14 units Labetalol HCl (Normodyne -) 100 mg PO TID [facility] Last Admin: 09/05/17 14:19 Dose: 100 mg Loperamide HCl (Imodium -) 2 mg PO Q8H PRN PRN Reason: DIARRHEA Last Admin: 09/05/17 16:54 Dose: 2 mg Losartan Potassium (Cozaar -) 25 mg PO DAILY [facility] Last Admin: 09/05/17 09:53 Dose: 25 mg Sevelamer Carbonate (Renvela -) 800 mg PO TIDCM [facility] Last Admin: 09/05/17 16:55 Dose: 800 mg 81 year old woman with PMhx of ESRD on HD (started 8 months ago), Diabetic Nephropathy, Hypertension, HLD, DM who presented with PNA from PMD office. #ESRD on HD #PNA #Hypertension #DM #Chronic Anemia #Renal Osteodystrophy no acute indication for [employer] today for next dialysis tomorrow on Levaquin for PNA started imodium as per GI will continue SHILPA with HD Ryan Dixon DO
--- NOTE | 2017-09-05 21:14 | PN ---
Progress Note, Physician - Current Medication List Current Medications: Active Medications Acetaminophen (Tylenol -) 650 mg PO Q6H PRN PRN Reason: FEVER Last Admin: 09/01/17 23:30 Dose: 650 mg Amlodipine Besylate (Norvasc -) 5 mg PO DAILY [facility] Last Admin: 09/05/17 09:53 Dose: 5 mg Aspirin (Asa -) 81 mg PO DAILY [facility] Last Admin: 09/05/17 09:53 Dose: 81 mg Calcitriol (Rocaltrol -) 0.5 mcg PO DAILY [facility] Last Admin: 09/05/17 09:52 Dose: 0.5 mcg Duloxetine HCl (Cymbalta -) 20 mg PO DAILY [facility] Last Admin: 09/05/17 09:52 Dose: 20 mg Epoetin Angel (Epogen -) 10,000 unit IVPUSH ONCE ONE Stop: 09/06/17 06:01 Ergocalciferol (Drisdol -) 50,000 unit PO Tu@1000 [facility] Last Admin: 09/04/17 10:50 Dose: Not Given Ferrous Sulfate (Feosol -) 325 mg PO DAILY [facility] Last Admin: 09/05/17 09:53 Dose: 325 mg Glimepiride (Amaryl -) 2 mg PO DAILY@0700 [facility] Heparin Sodium (Porcine) (Heparin -) 1,000 unit IVPUSH ONCE ONE Stop: 09/06/17 06:01 Levofloxacin (Levaquin 250 Mg Premixed Ivpb -) 250 mg in 50 mls @ 100 mls/hr IVPB Q48H [facility] PRN Reason: Protocol Last Admin: 09/03/17 22:28 Dose: 100 mls/hr Sodium Chloride (Normal Saline -) 250 mls @ 3,000 mls/hr IV PRN PRN PRN Reason: Hypotension during Dialysis Sodium Chloride (Normal Saline -) 250 mls @ 3,000 mls/hr IV PRN PRN PRN Reason: Hypotension during Dialysis Stop: 09/06/17 17:36 Insulin Detemir (Levemir Vial) 14 units SQ AM [facility] Last Admin: 09/05/17 06:47 Dose: 14 units Labetalol HCl (Normodyne -) 100 mg PO TID [facility] Last Admin: 09/05/17 14:19 Dose: 100 mg Loperamide HCl (Imodium -) 2 mg PO Q8H PRN PRN Reason: DIARRHEA Last Admin: 09/05/17 16:54 Dose: 2 mg Losartan Potassium (Cozaar -) 25 mg PO DAILY [facility] Last Admin: 09/05/17 09:53 Dose: 25 mg Sevelamer Carbonate (Renvela -) 800 mg PO TIDCM [facility] Last Admin: 09/05/17 16:55 Dose: 800 mg - Objective Vital Signs: Vital Signs Temperature 98.8 F 09/05/17 17:00 Pulse Rate 66 09/05/17 17:00 Respiratory Rate 18 09/05/17 17:00 Blood Pressure 142/56 09/05/17 17:00 O2 Sat by Pulse Oximetry (%) 93 L 09/05/17 09:00 Labs: CBC, BMP 09/04/17 10:20 09/04/17 15:15 INR, PTT INR 1.16 (0.82-1.09) H 08/28/17 16:35 Problem List - Problems (1) PNA (pneumonia) Code(s): J18.9 - PNEUMONIA, UNSPECIFIED ORGANISM (2) Diarrhea Code(s): R19.7 - DIARRHEA, UNSPECIFIED (3) CHF (congestive heart failure) Code(s): I50.9 - HEART FAILURE, UNSPECIFIED Qualifiers: Heart failure type: diastolic Heart failure chronicity: acute on chronic Qualified Code(s): I50.33 - Acute on chronic diastolic (congestive) heart failure (4) ESRD (end stage renal disease) Code(s): N18.6 - END STAGE RENAL DISEASE (5) Diabetes mellitus Code(s): E11.9 - TYPE 2 DIABETES MELLITUS WITHOUT COMPLICATIONS (6) HTN (hypertension) Code(s): I10 - ESSENTIAL (PRIMARY) HYPERTENSION Qualifiers: Hypertension type: essential hypertension Qualified Code(s): I10 - Essential (primary) hypertension (7) Anemia Code(s): D64.9 - ANEMIA, UNSPECIFIED (8) Depression Code(s): F32.9 - MAJOR DEPRESSIVE DISORDER, SINGLE EPISODE, UNSPECIFIED
[2017-09-06] MEDS: LABETALOL HCL 100 MG TABLET (FP) PO SCH ×3 (06:35→22:09)
[2017-09-06] MEDS: INSULIN (LEVEMIR) 100 UNITS/ML UNITS SQ SCH (06:36)
[2017-09-06] MEDS: GLIMEPIRIDE 2 MG TABLET (FP) PO SCH (06:36)
[2017-09-06] MEDS: SEVELAMER CARBONATE 800 MG TAB (FP) PO SCH ×2 (07:59→13:57)
--- NOTE | 2017-09-06 08:24 | PN ---
Progress Note, Physician Chief Complaint: appreciate GI input TELE: NSR - Current Medication List Current Medications: Active Medications Acetaminophen (Tylenol -) 650 mg PO Q6H PRN PRN Reason: FEVER Last Admin: 09/01/17 23:30 Dose: 650 mg Amlodipine Besylate (Norvasc -) 5 mg PO DAILY [facility] Last Admin: 09/05/17 09:53 Dose: 5 mg Aspirin (Asa -) 81 mg PO DAILY [facility] Last Admin: 09/05/17 09:53 Dose: 81 mg Calcitriol (Rocaltrol -) 0.5 mcg PO DAILY [facility] Last Admin: 09/05/17 09:52 Dose: 0.5 mcg Duloxetine HCl (Cymbalta -) 20 mg PO DAILY [facility] Last Admin: 09/05/17 09:52 Dose: 20 mg Epoetin Angel (Epogen -) 10,000 unit IVPUSH ONCE ONE Stop: 09/06/17 06:01 Ergocalciferol (Drisdol -) 50,000 unit PO Tu@1000 [facility] Last Admin: 09/04/17 10:50 Dose: Not Given Ferrous Sulfate (Feosol -) 325 mg PO DAILY [facility] Last Admin: 09/05/17 09:53 Dose: 325 mg Glimepiride (Amaryl -) 2 mg PO DAILY@0700 [facility] Last Admin: 09/06/17 06:36 Dose: Not Given Heparin Sodium (Porcine) (Heparin -) 1,000 unit IVPUSH ONCE ONE Stop: 09/06/17 06:01 Levofloxacin (Levaquin 250 Mg Premixed Ivpb -) 250 mg in 50 mls @ 100 mls/hr IVPB Q48H [facility] PRN Reason: Protocol Last Admin: 09/05/17 21:56 Dose: 100 mls/hr Sodium Chloride (Normal Saline -) 250 mls @ 3,000 mls/hr IV PRN PRN PRN Reason: Hypotension during Dialysis Sodium Chloride (Normal Saline -) 250 mls @ 3,000 mls/hr IV PRN PRN PRN Reason: Hypotension during Dialysis Stop: 09/06/17 17:36 Insulin Detemir (Levemir Vial) 14 units SQ AM [facility] Last Admin: 09/06/17 06:36 Dose: Not Given Labetalol HCl (Normodyne -) 100 mg PO TID [facility] Last Admin: 09/06/17 06:35 Dose: 100 mg Loperamide HCl (Imodium -) 2 mg PO Q8H PRN PRN Reason: DIARRHEA Last Admin: 09/05/17 16:54 Dose: 2 mg Losartan Potassium (Cozaar -) 25 mg PO DAILY [facility] Last Admin: 09/05/17 09:53 Dose: 25 mg Sevelamer Carbonate (Renvela -) 800 mg PO TIDCM [facility] Last Admin: 09/06/17 07:59 Dose: 800 mg - Objective Vital Signs: Vital Signs Temperature 98.1 F 09/06/17 06:00 Pulse Rate 70 09/06/17 06:00 Respiratory Rate 20 09/06/17 06:00 Blood Pressure 166/65 09/06/17 06:00 O2 Sat by Pulse Oximetry (%) 94 L 09/05/17 21:00 Constitutional: Yes: No Distress Cardiovascular: Yes: Regular Rate and Rhythm Respiratory: Yes: CTA Bilaterally Gastrointestinal: Yes: Soft Edema: No Neurological: Yes: Alert Labs: CBC, BMP 09/04/17 10:20 09/04/17 15:15 INR, PTT INR 1.16 (0.82-1.09) H 08/28/17 16:35 - ....Imaging EKG: Image Reviewed (NSR) Assessment/Plan Assessment/Plan 1. Pneumonia 2. Acute on Chronic Diastolic Heart Failure 3. ESRD on HD 4. HTN 5. DM 6. Persistent diarrhea 7. Hypoglycemia REC: 1. Continue Norvasc 5 qd, ASA 81 qd, labetolol 100 tid, losartan 25 qd. If BP trend remains consistently >150/90, can increase Norvasc 10mg. 2. O2, BD as needed 3. HD with more aggressive volume removal as tolerated. 4. ABx as per PMD f/u cultures and stool for c diff negative, GI consult for persistent diarrhea- work up in progress 5. DVT prophylaxis 6. Decreased dose oral DM meds
--- NOTE | 2017-09-06 10:15 | PN ---
Progress Note (short form) - Note Progress Note: PULMONARY Denies shortness of breath. Minimal cough. No fevers or chills. Still with diarrhea. Last Vital Signs Temp Pulse Resp BP Pulse Ox 98.1 F 70 20 166/65 94 L 09/06/17 06:00 09/06/17 06:00 09/06/17 06:00 09/06/17 06:00 09/05/17 21:00 Gen: NAD at rest Heart: RRR Lung: scattered rhonchi, wheezes Abd: soft, nontender Ext: no edema CBC, BMP 09/04/17 10:20 09/04/17 15:15 Active Medications Acetaminophen (Tylenol -) 650 mg PO Q6H PRN PRN Reason: FEVER Last Admin: 09/01/17 23:30 Dose: 650 mg Amlodipine Besylate (Norvasc -) 5 mg PO DAILY [facility] Last Admin: 09/05/17 09:53 Dose: 5 mg Aspirin (Asa -) 81 mg PO DAILY [facility] Last Admin: 09/05/17 09:53 Dose: 81 mg Calcitriol (Rocaltrol -) 0.5 mcg PO DAILY [facility] Last Admin: 09/05/17 09:52 Dose: 0.5 mcg Duloxetine HCl (Cymbalta -) 20 mg PO DAILY [facility] Last Admin: 09/05/17 09:52 Dose: 20 mg Epoetin Angel (Epogen -) 10,000 unit IVPUSH ONCE ONE Stop: 09/06/17 06:01 Ergocalciferol (Drisdol -) 50,000 unit PO Tu@1000 [facility] Last Admin: 09/04/17 10:50 Dose: Not Given Ferrous Sulfate (Feosol -) 325 mg PO DAILY [facility] Last Admin: 09/05/17 09:53 Dose: 325 mg Glimepiride (Amaryl -) 2 mg PO DAILY@0700 [facility] Last Admin: 09/06/17 06:36 Dose: Not Given Heparin Sodium (Porcine) (Heparin -) 1,000 unit IVPUSH ONCE ONE Stop: 09/06/17 06:01 Levofloxacin (Levaquin 250 Mg Premixed Ivpb -) 250 mg in 50 mls @ 100 mls/hr IVPB Q48H [facility] PRN Reason: Protocol Last Admin: 09/05/17 21:56 Dose: 100 mls/hr Sodium Chloride (Normal Saline -) 250 mls @ 3,000 mls/hr IV PRN PRN PRN Reason: Hypotension during Dialysis Sodium Chloride (Normal Saline -) 250 mls @ 3,000 mls/hr IV PRN PRN PRN Reason: Hypotension during Dialysis Stop: 09/06/17 17:36 Insulin Detemir (Levemir Vial) 14 units SQ AM [facility] Last Admin: 09/06/17 06:36 Dose: Not Given Labetalol HCl (Normodyne -) 100 mg PO TID [facility] Last Admin: 09/06/17 06:35 Dose: 100 mg Loperamide HCl (Imodium -) 2 mg PO Q8H PRN PRN Reason: DIARRHEA Last Admin: 09/05/17 16:54 Dose: 2 mg Losartan Potassium (Cozaar -) 25 mg PO DAILY [facility] Last Admin: 09/05/17 09:53 Dose: 25 mg Sevelamer Carbonate (Renvela -) 800 mg PO TIDCM [facility] Last Admin: 09/06/17 07:59 Dose: 800 mg A/P Pneumonia Acute on Chronic Diastolic Heart Failure ESRD on HD HTN DM - complete antibiotics - HD per renal - inhaled bronchodilators - O2 as needed - DVT prophylaxis
[2017-09-06] MEDS ORDERED: HEPARIN NA (PORCINE) 5,000 UNITS/ML 1ML VIAL IVPUSH ONE (11:00)
[2017-09-06 11:03] LABS: HEMATOCRIT 31.5 % (32.4-45.2); HEMOGLOBIN 10.4 GM/dL (10.7-15.3); MCH 32.6 pg (25.7-33.7); MEAN CELL VOLUME 98.8 fl (80-96); MEAN PLT VOLUME 7.3 fl (7.5-11.1); PLATELET COUNT 285 K/MM3 (134-434); RBC 3.18 M/mm3 (3.60-5.2); RDW 15.1 % (11.6-15.6); WHITE BLOOD COUNT 6.6 K/mm3 (4.0-10.0)
--- NOTE | 2017-09-06 11:13 | PN ---
Progress Note, Physician History of Present Illness: Episode of hypoglycemia last night. Undergoing hemodialysis this morning. Appears comfortable. - Current Medication List Current Medications: Active Medications Acetaminophen (Tylenol -) 650 mg PO Q6H PRN PRN Reason: FEVER Last Admin: 09/01/17 23:30 Dose: 650 mg Amlodipine Besylate (Norvasc -) 5 mg PO DAILY [facility] Last Admin: 09/05/17 09:53 Dose: 5 mg Aspirin (Asa -) 81 mg PO DAILY [facility] Last Admin: 09/05/17 09:53 Dose: 81 mg Calcitriol (Rocaltrol -) 0.5 mcg PO DAILY [facility] Last Admin: 09/05/17 09:52 Dose: 0.5 mcg Duloxetine HCl (Cymbalta -) 20 mg PO DAILY [facility] Last Admin: 09/05/17 09:52 Dose: 20 mg Epoetin Angel (Procrit -) 10,000 unit IVPUSH ONCE ONE Stop: 09/06/17 11:16 Ergocalciferol (Drisdol -) 50,000 unit PO Tu@1000 [facility] Last Admin: 09/04/17 10:50 Dose: Not Given Ferrous Sulfate (Feosol -) 325 mg PO DAILY [facility] Last Admin: 09/05/17 09:53 Dose: 325 mg Glimepiride (Amaryl -) 2 mg PO DAILY@0700 [facility] Last Admin: 09/06/17 06:36 Dose: Not Given Levofloxacin (Levaquin 250 Mg Premixed Ivpb -) 250 mg in 50 mls @ 100 mls/hr IVPB Q48H [facility] PRN Reason: Protocol Last Admin: 09/05/17 21:56 Dose: 100 mls/hr Sodium Chloride (Normal Saline -) 250 mls @ 3,000 mls/hr IV PRN PRN PRN Reason: Hypotension during Dialysis Sodium Chloride (Normal Saline -) 250 mls @ 3,000 mls/hr IV PRN PRN PRN Reason: Hypotension during Dialysis Stop: 09/06/17 11:16 Insulin Detemir (Levemir Vial) 14 units SQ AM [facility] Last Admin: 09/06/17 06:36 Dose: Not Given Labetalol HCl (Normodyne -) 100 mg PO TID [facility] Last Admin: 09/06/17 06:35 Dose: 100 mg Loperamide HCl (Imodium -) 2 mg PO Q8H PRN PRN Reason: DIARRHEA Last Admin: 09/05/17 16:54 Dose: 2 mg Losartan Potassium (Cozaar -) 25 mg PO DAILY [facility] Last Admin: 09/05/17 09:53 Dose: 25 mg Sevelamer Carbonate (Renvela -) 800 mg PO TIDCM [facility] Last Admin: 09/06/17 07:59 Dose: 800 mg - Objective Vital Signs: Vital Signs Temperature 98.2 F 09/06/17 09:45 Pulse Rate 82 09/06/17 10:50 Respiratory Rate 18 09/06/17 10:50 Blood Pressure 143/62 09/06/17 10:50 O2 Sat by Pulse Oximetry (%) 94 L 09/05/17 21:00 Constitutional: Yes: No Distress, Calm Gastrointestinal: Yes: Soft. No: Rectal Bleeding, Tenderness, Vomiting Labs: CBC, BMP 09/06/17 09:50 INR, PTT INR 1.16 (0.82-1.09) H 08/28/17 16:35 Problem List - Problems (1) Diarrhea Code(s): R19.7 - DIARRHEA, UNSPECIFIED (2) Anemia Code(s): D64.9 - ANEMIA, UNSPECIFIED (3) CHF (congestive heart failure) Code(s): I50.9 - HEART FAILURE, UNSPECIFIED Qualifiers: Heart failure type: diastolic Heart failure chronicity: acute on chronic Qualified Code(s): I50.33 - Acute on chronic diastolic (congestive) heart failure (4) ESRD (end stage renal disease) Code(s): N18.6 - END STAGE RENAL DISEASE (5) PNA (pneumonia) Code(s): J18.9 - PNEUMONIA, UNSPECIFIED ORGANISM (6) Diabetes mellitus Code(s): E11.9 - TYPE 2 DIABETES MELLITUS WITHOUT COMPLICATIONS (7) HTN (hypertension) Code(s): I10 - ESSENTIAL (PRIMARY) HYPERTENSION Qualifiers: Hypertension type: essential hypertension Qualified Code(s): I10 - Essential (primary) hypertension Assessment/Plan Continue Imodium. Follow test results. Low fat, lactose-free, artificial sweeteners-free diet
[2017-09-06] MEDS ORDERED: SODIUM CHLORIDE 250 ML IV PRN (11:15)
[2017-09-06] MEDS ORDERED: EPOETIN ALFA 10,000 UNIT/1 ML VIAL IVPUSH ONE (11:15)
[2017-09-06 11:34] LABS: ANION GAP 8 (8-16); BLOOD UREA NITROGEN 15 mg/dL (7-18); CALCIUM 7.6 mg/dL (8.5-10.1); CHLORIDE 103 mmol/L (98-107); CO2 28 mmol/L (21-32); CREATININE 3.4 mg/dL (0.55-1.02); GLUCOSE,RANDOM 189 mg/dL (74-106); POTASSIUM 3.1 mmol/L (3.5-5.1); SODIUM 139 mmol/L (136-145)
[2017-09-06] MEDS: amLODIPine BESYLATE 5 MG TABLET (FP) PO SCH (13:57)
[2017-09-06] MEDS: ASPIRIN 81 MG CHEWABLE TABLETS PO SCH (13:57)
[2017-09-06] MEDS: LOSARTAN POTASSIUM 25 MG TABLET PO SCH (13:57)
[2017-09-06] MEDS: CALCITRIOL 0.25 MCG CAPSULE (FP) PO SCH (13:57)
[2017-09-06] MEDS: FERROUS SO4 325 MG TABLET (FP) PO SCH (13:57)
[2017-09-06] MEDS: DULoxetine HCL 20 MG CAPSULE.DR (FP) PO SCH (13:58)
[2017-09-06 14:31] LABS: PHOSPHOROUS 2.2 mg/dL (2.5-4.9)
--- NOTE | 2017-09-06 15:04 | PN ---
Progress Note (short form) - Note Progress Note: Renal follow up for ESRD on HD Pt seen and examined at the bedside s/p dialysis earlier today with 2kg UF continues to have diarrhea denies any abd pain, fever, chills, sob, cough Vital Signs Temperature 98.2 F 09/06/17 09:45 Pulse Rate 80 09/06/17 13:35 Respiratory Rate 18 09/06/17 13:35 Blood Pressure 134/64 09/06/17 13:35 O2 Sat by Pulse Oximetry (%) 95 09/06/17 09:00 Intake & Output 09/03/17 09/04/17 09/05/17 09/06/17 23:59 23:59 23:59 23:59 Intake Total 550 800 580 240 Balance 550 800 580 240 Weight 59.33 kg 58.967 kg 58.513 kg 57.606 kg NAD on NC O2 MMM, NO JVD RRR, No M/R dec BS soft NT/ND No LE edema, clubbing or cyanosis Right arm AVF CBC, BMP 09/06/17 09:50 09/06/17 09:50 Current Medications Acetaminophen (Tylenol -) 650 mg PO Q6H PRN PRN Reason: FEVER Last Admin: 09/01/17 23:30 Dose: 650 mg Amlodipine Besylate (Norvasc -) 5 mg PO DAILY [facility] Last Admin: 09/06/17 13:57 Dose: 5 mg Aspirin (Asa -) 81 mg PO DAILY [facility] Last Admin: 09/06/17 13:57 Dose: 81 mg Calcitriol (Rocaltrol -) 0.5 mcg PO DAILY [facility] Last Admin: 09/06/17 13:57 Dose: 0.5 mcg Duloxetine HCl (Cymbalta -) 20 mg PO DAILY [facility] Last Admin: 09/06/17 13:58 Dose: 20 mg Ergocalciferol (Drisdol -) 50,000 unit PO Tu@1000 [facility] Last Admin: 09/04/17 10:50 Dose: Not Given Ferrous Sulfate (Feosol -) 325 mg PO DAILY [facility] Last Admin: 09/06/17 13:57 Dose: 325 mg Glimepiride (Amaryl -) 2 mg PO DAILY@0700 [facility] Last Admin: 09/06/17 06:36 Dose: Not Given Levofloxacin (Levaquin 250 Mg Premixed Ivpb -) 250 mg in 50 mls @ 100 mls/hr IVPB Q48H [facility] PRN Reason: Protocol Last Admin: 09/05/17 21:56 Dose: 100 mls/hr Sodium Chloride (Normal Saline -) 250 mls @ 3,000 mls/hr IV PRN PRN PRN Reason: Hypotension during Dialysis Insulin Detemir (Levemir Vial) 14 units SQ AM [facility] Last Admin: 09/06/17 06:36 Dose: Not Given Labetalol HCl (Normodyne -) 100 mg PO TID [facility] Last Admin: 09/06/17 06:35 Dose: 100 mg Loperamide HCl (Imodium -) 2 mg PO Q8H PRN PRN Reason: DIARRHEA Last Admin: 09/05/17 16:54 Dose: 2 mg Losartan Potassium (Cozaar -) 25 mg PO DAILY [facility] Last Admin: 09/06/17 13:57 Dose: 25 mg 81 year old woman with PMhx of ESRD on HD (started 8 months ago), Diabetic Nephropathy, Hypertension, HLD, DM who presented with PNA from PMD office. #ESRD on HD #PNA #Hypertension #DM #Chronic Anemia #Renal Osteodystrophy tolerated dialysis with 2kg UF well today continue Renal diet and 1.2L fluid restriction d/c Renvela because of low phos levels f/u stool studies as per GI continue imodium on Levaquin for PNA Ryan Dixon DO
[2017-09-06] MEDS: LOPERAMIDE HCL 2 MG CAPSULE PO PRN (15:52)
[2017-09-06] MEDS ORDERED: POTASSIUM CHLORIDE TABS 20 MEQ TABLET.ER (FP) PO ONE ×2 (18:27→22:15)
[2017-09-06] MEDS: HEPARIN NA (PORCINE) 5,000 UNITS/ML 1ML VIAL SQ SCH (22:09)
--- NOTE | 2017-09-06 23:16 | PN ---
Progress Note, Physician History of Present Illness: Pt feeling better - Current Medication List Current Medications: Active Medications Acetaminophen (Tylenol -) 650 mg PO Q6H PRN PRN Reason: FEVER Last Admin: 09/01/17 23:30 Dose: 650 mg Amlodipine Besylate (Norvasc -) 5 mg PO DAILY [facility] Last Admin: 09/06/17 13:57 Dose: 5 mg Aspirin (Asa -) 81 mg PO DAILY [facility] Last Admin: 09/06/17 13:57 Dose: 81 mg Calcitriol (Rocaltrol -) 0.5 mcg PO DAILY [facility] Last Admin: 09/06/17 13:57 Dose: 0.5 mcg Duloxetine HCl (Cymbalta -) 20 mg PO DAILY [facility] Last Admin: 09/06/17 13:58 Dose: 20 mg Ergocalciferol (Drisdol -) 50,000 unit PO Tu@1000 [facility] Last Admin: 09/04/17 10:50 Dose: Not Given Ferrous Sulfate (Feosol -) 325 mg PO DAILY [facility] Last Admin: 09/06/17 13:57 Dose: 325 mg Glimepiride (Amaryl -) 2 mg PO DAILY@0700 [facility] Last Admin: 09/06/17 06:36 Dose: Not Given Heparin Sodium (Porcine) (Heparin -) 5,000 unit SQ BID [facility] Last Admin: 09/06/17 22:09 Dose: 5,000 unit Levofloxacin (Levaquin 250 Mg Premixed Ivpb -) 250 mg in 50 mls @ 100 mls/hr IVPB Q48H [facility] PRN Reason: Protocol Last Admin: 09/05/17 21:56 Dose: 100 mls/hr Sodium Chloride (Normal Saline -) 250 mls @ 3,000 mls/hr IV PRN PRN PRN Reason: Hypotension during Dialysis Insulin Detemir (Levemir Vial) 14 units SQ AM [facility] Last Admin: 09/06/17 06:36 Dose: Not Given Labetalol HCl (Normodyne -) 100 mg PO TID [facility] Last Admin: 09/06/17 22:09 Dose: 100 mg Loperamide HCl (Imodium -) 2 mg PO Q8H PRN PRN Reason: DIARRHEA Last Admin: 09/06/17 15:52 Dose: 2 mg Losartan Potassium (Cozaar -) 25 mg PO DAILY [facility] Last Admin: 09/06/17 13:57 Dose: 25 mg - Objective Vital Signs: Vital Signs Temperature 98.6 F 09/06/17 20:26 Pulse Rate 71 09/06/17 20:26 Respiratory Rate 18 09/06/17 20:26 Blood Pressure 169/59 09/06/17 20:26 O2 Sat by Pulse Oximetry (%) 95 09/06/17 20:20 Constitutional: Yes: Well Nourished Neck: Yes: WNL, Supple Cardiovascular: Yes: WNL, Regular Rate and Rhythm Respiratory: Yes: Diminished Gastrointestinal: Yes: WNL, Normal Bowel Sounds Labs: CBC, BMP 09/06/17 09:50 09/06/17 09:50 INR, PTT INR 1.16 (0.82-1.09) H 08/28/17 16:35 Problem List - Problems (1) PNA (pneumonia) Assessment/Plan: Multilobar pneumonia Cont IV levaquin Cont nebulizers DC planning for am Code(s): J18.9 - PNEUMONIA, UNSPECIFIED ORGANISM (2) Diarrhea Assessment/Plan: Multiple stool cultures pending to date Cont to monitor Stool negative for c diff Cont imodium Code(s): R19.7 - DIARRHEA, UNSPECIFIED (3) CHF (congestive heart failure) Assessment/Plan: Acute on chronic diastolic heart failure Volume overload to be corrected w/ dialysis Monitor electrolytes Code(s): I50.9 - HEART FAILURE, UNSPECIFIED Qualifiers: Heart failure type: diastolic Heart failure chronicity: acute on chronic Qualified Code(s): I50.33 - Acute on chronic diastolic (congestive) heart failure (4) ESRD (end stage renal disease) Assessment/Plan: Dialysis as per renal Cont calcitrol/sevelamer Code(s): N18.6 - END STAGE RENAL DISEASE (5) Diabetes mellitus Assessment/Plan: Cont amaryl and levemir Levemir evening dose was stopped due to hypoglycemia Code(s): E11.9 - TYPE 2 DIABETES MELLITUS WITHOUT COMPLICATIONS (6) HTN (hypertension) Assessment/Plan: BP stable Cont losartan/norvasc/labetalol/asa Code(s): I10 - ESSENTIAL (PRIMARY) HYPERTENSION Qualifiers: Hypertension type: essential hypertension Qualified Code(s): I10 - Essential (primary) hypertension (7) Anemia Assessment/Plan: Due to chronic dz/ESRD Cont Ferrous sulfate Epogen as per renal Code(s): D64.9 - ANEMIA, UNSPECIFIED (8) Depression Code(s): F32.9 - MAJOR DEPRESSIVE DISORDER, SINGLE EPISODE, UNSPECIFIED
[2017-09-07] MEDS: INSULIN (LEVEMIR) 100 UNITS/ML UNITS SQ SCH (06:03)
[2017-09-07] MEDS: LABETALOL HCL 100 MG TABLET (FP) PO SCH ×3 (06:03→21:30)
[2017-09-07] MEDS: GLIMEPIRIDE 2 MG TABLET (FP) PO SCH (06:03)
--- NOTE | 2017-09-07 06:28 | PN ---
Progress Note, Physician Chief Complaint: alert, oriented no distress - Current Medication List Current Medications: Active Medications Acetaminophen (Tylenol -) 650 mg PO Q6H PRN PRN Reason: FEVER Last Admin: 09/01/17 23:30 Dose: 650 mg Amlodipine Besylate (Norvasc -) 5 mg PO DAILY [facility] Last Admin: 09/06/17 13:57 Dose: 5 mg Aspirin (Asa -) 81 mg PO DAILY [facility] Last Admin: 09/06/17 13:57 Dose: 81 mg Calcitriol (Rocaltrol -) 0.5 mcg PO DAILY [facility] Last Admin: 09/06/17 13:57 Dose: 0.5 mcg Duloxetine HCl (Cymbalta -) 20 mg PO DAILY [facility] Last Admin: 09/06/17 13:58 Dose: 20 mg Ergocalciferol (Drisdol -) 50,000 unit PO Tu@1000 [facility] Last Admin: 09/04/17 10:50 Dose: Not Given Ferrous Sulfate (Feosol -) 325 mg PO DAILY [facility] Last Admin: 09/06/17 13:57 Dose: 325 mg Glimepiride (Amaryl -) 2 mg PO DAILY@0700 [facility] Last Admin: 09/07/17 06:03 Dose: 2 mg Heparin Sodium (Porcine) (Heparin -) 5,000 unit SQ BID [facility] Last Admin: 09/06/17 22:09 Dose: 5,000 unit Levofloxacin (Levaquin 250 Mg Premixed Ivpb -) 250 mg in 50 mls @ 100 mls/hr IVPB Q48H [facility] PRN Reason: Protocol Last Admin: 09/05/17 21:56 Dose: 100 mls/hr Sodium Chloride (Normal Saline -) 250 mls @ 3,000 mls/hr IV PRN PRN PRN Reason: Hypotension during Dialysis Insulin Detemir (Levemir Vial) 14 units SQ AM [facility] Last Admin: 09/07/17 06:03 Dose: 14 units Labetalol HCl (Normodyne -) 100 mg PO TID [facility] Last Admin: 09/07/17 06:03 Dose: 100 mg Loperamide HCl (Imodium -) 2 mg PO Q8H PRN PRN Reason: DIARRHEA Last Admin: 09/06/17 15:52 Dose: 2 mg Losartan Potassium (Cozaar -) 25 mg PO DAILY [facility] Last Admin: 09/06/17 13:57 Dose: 25 mg - Objective Vital Signs: Vital Signs Temperature 98.1 F 09/07/17 01:56 Pulse Rate 73 09/07/17 06:00 Respiratory Rate 20 09/07/17 06:00 Blood Pressure 141/61 09/07/17 06:00 O2 Sat by Pulse Oximetry (%) 95 09/06/17 20:20 Constitutional: Yes: No Distress Cardiovascular: Yes: Regular Rate and Rhythm Respiratory: Yes: CTA Bilaterally Gastrointestinal: Yes: Soft Edema: No Neurological: Yes: Alert Labs: CBC, BMP 09/06/17 09:50 09/06/17 09:50 INR, PTT INR 1.16 (0.82-1.09) H 08/28/17 16:35 Laboratory Tests 09/06/17 09/06/17 09/07/17 09:50 09:50 06:30 WBC 6.6 9.2 D Hgb 10.4 L 11.4 Plt Count 285 324 Sodium 139 Potassium 3.1 L Creatinine 09/07/17 06:30 WBC Hgb Plt Count Sodium 136 Potassium 4.2 Creatinine 3.5 H - ....Imaging EKG: Image Reviewed (nsr) Assessment/Plan Assessment/Plan 1. Pneumonia 2. Acute on Chronic Diastolic Heart Failure 3. ESRD on HD 4. HTN 5. DM 6. Persistent diarrhea 7. Hypoglycemia REC: 1. Continue Norvasc 5 qd, ASA 81 qd, labetolol 100 tid, losartan 25 qd. If BP trend remains consistently >150/90, can increase Norvasc 10mg. 2. O2, BD as needed 3. HD with more aggressive volume removal as tolerated. 4. ABx as per PMD f/u cultures and stool for c diff negative, GI consult for persistent diarrhea- work up in progress 5. DVT prophylaxis 6. Decreased dose oral DM meds
[2017-09-07 07:18] LABS: BASO % 0.4 % (0-2.0); EOS % 2.2 % (0-4.5); HEMATOCRIT 34.9 % (32.4-45.2); HEMOGLOBIN 11.4 GM/dL (10.7-15.3); MCH 32.7 pg (25.7-33.7); MCHC 32.7 g/dl (32.0-36.0); MEAN CELL VOLUME 100.1 fl (80-96); MEAN PLT VOLUME 7.7 fl (7.5-11.1); MONO % 6.1 % (3.8-10.2); NEUT % 68.3 % (42.8-82.8); PLATELET COUNT 324 K/MM3 (134-434); RBC 3.48 M/mm3 (3.60-5.2); RDW 15.8 % (11.6-15.6); WHITE BLOOD COUNT 9.2 K/mm3 (4.0-10.0)
[2017-09-07 07:27] LABS: ALBUMIN 2.6 g/dl (3.4-5.0); ANION GAP 9 (8-16); BILIRUBIN,TOTAL 0.6 mg/dL (0.2-1.0); BLOOD UREA NITROGEN 13 mg/dL (7-18); CALCIUM 7.9 mg/dL (8.5-10.1); CHLORIDE 100 mmol/L (98-107); CO2 27 mmol/L (21-32); CREATININE 3.5 mg/dL (0.55-1.02); GLUCOSE,RANDOM 148 mg/dL (74-106); POTASSIUM 4.2 mmol/L (3.5-5.1); SGOT/AST 20 U/L (15-37); SGPT/ALT 14 U/L (12-78); SODIUM 136 mmol/L (136-145)
[2017-09-07 07:29] LABS: ALK PHOS 74 U/L (45-117); TOT PROT 6.5 g/dl (6.4-8.2)
[2017-09-07 08:09] LABS: IGA IMMUNOGLOBULIN 187 mg/dL (64-422)
[2017-09-07] MEDS: LOSARTAN POTASSIUM 25 MG TABLET PO SCH (09:31)
[2017-09-07] MEDS: ASPIRIN 81 MG CHEWABLE TABLETS PO SCH (09:31)
[2017-09-07] MEDS: amLODIPine BESYLATE 5 MG TABLET (FP) PO SCH (09:31)
[2017-09-07] MEDS: CALCITRIOL 0.25 MCG CAPSULE (FP) PO SCH (09:31)
[2017-09-07] MEDS: FERROUS SO4 325 MG TABLET (FP) PO SCH (09:31)
[2017-09-07] MEDS: DULoxetine HCL 20 MG CAPSULE.DR (FP) PO SCH (09:32)
[2017-09-07] MEDS: HEPARIN NA (PORCINE) 5,000 UNITS/ML 1ML VIAL SQ SCH ×2 (09:32→21:30)
--- NOTE | 2017-09-07 11:12 | PN ---
Progress Note, Physician History of Present Illness: pulmonary alert,feeling better,comfortable,-resp distress - Current Medication List Current Medications: Active Medications Acetaminophen (Tylenol -) 650 mg PO Q6H PRN PRN Reason: FEVER Last Admin: 09/01/17 23:30 Dose: 650 mg Amlodipine Besylate (Norvasc -) 5 mg PO DAILY [facility] Last Admin: 09/07/17 09:31 Dose: 5 mg Aspirin (Asa -) 81 mg PO DAILY [facility] Last Admin: 09/07/17 09:31 Dose: 81 mg Calcitriol (Rocaltrol -) 0.5 mcg PO DAILY [facility] Last Admin: 09/07/17 09:31 Dose: 0.5 mcg Duloxetine HCl (Cymbalta -) 20 mg PO DAILY [facility] Last Admin: 09/07/17 09:32 Dose: 20 mg Ergocalciferol (Drisdol -) 50,000 unit PO Tu@1000 [facility] Last Admin: 09/04/17 10:50 Dose: Not Given Ferrous Sulfate (Feosol -) 325 mg PO DAILY [facility] Last Admin: 09/07/17 09:31 Dose: 325 mg Glimepiride (Amaryl -) 2 mg PO DAILY@0700 [facility] Last Admin: 09/07/17 06:03 Dose: 2 mg Heparin Sodium (Porcine) (Heparin -) 5,000 unit SQ BID [facility] Last Admin: 09/07/17 09:32 Dose: 5,000 unit Levofloxacin (Levaquin 250 Mg Premixed Ivpb -) 250 mg in 50 mls @ 100 mls/hr IVPB Q48H NURIS PRN Reason: Protocol Last Admin: 09/05/17 21:56 Dose: 100 mls/hr Sodium Chloride (Normal Saline -) 250 mls @ 3,000 mls/hr IV PRN PRN PRN Reason: Hypotension during Dialysis Insulin Detemir (Levemir Vial) 14 units SQ AM [facility] Last Admin: 09/07/17 06:03 Dose: 14 units Labetalol HCl (Normodyne -) 100 mg PO TID [facility] Last Admin: 09/07/17 06:03 Dose: 100 mg Loperamide HCl (Imodium -) 2 mg PO Q8H PRN PRN Reason: DIARRHEA Last Admin: 09/06/17 15:52 Dose: 2 mg Losartan Potassium (Cozaar -) 25 mg PO DAILY [facility] Last Admin: 09/07/17 09:31 Dose: 25 mg - Objective Vital Signs: Vital Signs Temperature 98.1 F 09/07/17 01:56 Pulse Rate 73 09/07/17 06:00 Respiratory Rate 20 09/07/17 06:00 Blood Pressure 141/61 09/07/17 06:00 O2 Sat by Pulse Oximetry (%) 95 09/06/17 20:20 Constitutional: Yes: Well Nourished, Calm Eyes: Yes: WNL HENT: Yes: WNL Neck: Yes: WNL Cardiovascular: Yes: Regular Rate and Rhythm, S1, S2 Respiratory: Yes: Rhonchi (few rhonchi) Gastrointestinal: Yes: Normal Bowel Sounds, Soft Extremities: Yes: WNL Edema: No Labs: CBC, BMP 09/07/17 06:30 09/07/17 06:30 INR, PTT INR 1.16 (0.82-1.09) H 08/28/17 16:35 Problem List - Problems (1) ESRD (end stage renal disease) Code(s): N18.6 - END STAGE RENAL DISEASE (2) CHF (congestive heart failure) Code(s): I50.9 - HEART FAILURE, UNSPECIFIED Qualifiers: Heart failure type: diastolic Heart failure chronicity: acute on chronic Qualified Code(s): I50.33 - Acute on chronic diastolic (congestive) heart failure (3) PNA (pneumonia) Code(s): J18.9 - PNEUMONIA, UNSPECIFIED ORGANISM (4) Diabetes mellitus Code(s): E11.9 - TYPE 2 DIABETES MELLITUS WITHOUT COMPLICATIONS (5) HTN (hypertension) Code(s): I10 - ESSENTIAL (PRIMARY) HYPERTENSION Qualifiers: Hypertension type: essential hypertension Qualified Code(s): I10 - Essential (primary) hypertension Assessment/Plan MP BILATERAL PNEUMONIA improved DIASTOLIC CHF ESRD ON HD HTN DM PLAN IV ABX SUPPLEMENTAL O2 INHALED BRONCHODILATORS HD PER RENAL DR COLEMAN Problem List - Problems (1) ESRD (end stage renal disease) Code(s): N18.6 - END STAGE RENAL DISEASE (2) CHF (congestive heart failure) Code(s): I50.9 - HEART FAILURE, UNSPECIFIED (3) PNA (pneumonia) Code(s): J18.9 - PNEUMONIA, UNSPECIFIED ORGANISM (4) Diabetes mellitus Code(s): E11.9 - TYPE 2 DIABETES MELLITUS WITHOUT COMPLICATIONS (5) HTN (hypertension) Code(s): I10 - ESSENTIAL (PRIMARY) HYPERTENSION
--- NOTE | 2017-09-07 22:19 | PN ---
Progress Note, Physician History of Present Illness: No new complaints - Current Medication List Current Medications: Active Medications Acetaminophen (Tylenol -) 650 mg PO Q6H PRN PRN Reason: FEVER Last Admin: 09/01/17 23:30 Dose: 650 mg Amlodipine Besylate (Norvasc -) 5 mg PO DAILY [facility] Last Admin: 09/07/17 09:31 Dose: 5 mg Aspirin (Asa -) 81 mg PO DAILY [facility] Last Admin: 09/07/17 09:31 Dose: 81 mg Calcitriol (Rocaltrol -) 0.5 mcg PO DAILY [facility] Last Admin: 09/07/17 09:31 Dose: 0.5 mcg Duloxetine HCl (Cymbalta -) 20 mg PO DAILY [facility] Last Admin: 09/07/17 09:32 Dose: 20 mg Ergocalciferol (Drisdol -) 50,000 unit PO Tu@1000 [facility] Last Admin: 09/04/17 10:50 Dose: Not Given Ferrous Sulfate (Feosol -) 325 mg PO DAILY [facility] Last Admin: 09/07/17 09:31 Dose: 325 mg Glimepiride (Amaryl -) 2 mg PO DAILY@0700 [facility] Last Admin: 09/07/17 06:03 Dose: 2 mg Heparin Sodium (Porcine) (Heparin -) 5,000 unit SQ BID [facility] Last Admin: 09/07/17 21:30 Dose: 5,000 unit Levofloxacin (Levaquin 250 Mg Premixed Ivpb -) 250 mg in 50 mls @ 100 mls/hr IVPB Q48H NURIS PRN Reason: Protocol Last Admin: 09/07/17 21:30 Dose: 100 mls/hr Sodium Chloride (Normal Saline -) 250 mls @ 3,000 mls/hr IV PRN PRN PRN Reason: Hypotension during Dialysis Insulin Detemir (Levemir Vial) 14 units SQ AM [facility] Last Admin: 09/07/17 06:03 Dose: 14 units Labetalol HCl (Normodyne -) 100 mg PO TID [facility] Last Admin: 09/07/17 21:30 Dose: 100 mg Loperamide HCl (Imodium -) 2 mg PO Q8H PRN PRN Reason: DIARRHEA Last Admin: 09/06/17 15:52 Dose: 2 mg Losartan Potassium (Cozaar -) 25 mg PO DAILY [facility] Last Admin: 09/07/17 09:31 Dose: 25 mg - Objective Vital Signs: Vital Signs Temperature 98.8 F 09/07/17 17:00 Pulse Rate 67 09/07/17 17:00 Respiratory Rate 18 09/07/17 17:00 Blood Pressure 154/70 09/07/17 17:00 O2 Sat by Pulse Oximetry (%) 96 09/07/17 09:00 HENT: Yes: WNL Neck: Yes: WNL, Supple Cardiovascular: Yes: WNL, Regular Rate and Rhythm Respiratory: Yes: Diminished Gastrointestinal: Yes: WNL, Normal Bowel Sounds, Soft Labs: CBC, BMP 09/07/17 06:30 09/07/17 06:30 INR, PTT INR 1.16 (0.82-1.09) H 08/28/17 16:35 Problem List - Problems (1) PNA (pneumonia) Assessment/Plan: Multilobar pneumonia Cont IV levaquin as per pulmonary Cont nebulizers Code(s): J18.9 - PNEUMONIA, UNSPECIFIED ORGANISM (2) Diarrhea Assessment/Plan: Multiple stool cultures pending to date Cont to monitor Stool negative for c diff Cont imodium Code(s): R19.7 - DIARRHEA, UNSPECIFIED (3) CHF (congestive heart failure) Assessment/Plan: Acute on chronic diastolic heart failure Volume overload to be corrected w/ dialysis Monitor electrolytes Code(s): I50.9 - HEART FAILURE, UNSPECIFIED Qualifiers: Heart failure type: diastolic Heart failure chronicity: acute on chronic Qualified Code(s): I50.33 - Acute on chronic diastolic (congestive) heart failure (4) ESRD (end stage renal disease) Assessment/Plan: Dialysis as per renal Cont calcitrol/sevelamer Code(s): N18.6 - END STAGE RENAL DISEASE (5) Diabetes mellitus Code(s): E11.9 - TYPE 2 DIABETES MELLITUS WITHOUT COMPLICATIONS (6) HTN (hypertension) Code(s): I10 - ESSENTIAL (PRIMARY) HYPERTENSION Qualifiers: Hypertension type: essential hypertension Qualified Code(s): I10 - Essential (primary) hypertension (7) Anemia Code(s): D64.9 - ANEMIA, UNSPECIFIED (8) Depression Code(s): F32.9 - MAJOR DEPRESSIVE DISORDER, SINGLE EPISODE, UNSPECIFIED
[2017-09-08 00:14] LABS: GLIADIN ANTIBODY IGA 4 units (0-19); GLIADIN ANTIBODY IGG 1 units (0-19); TRANSGLUTAMINASE IGA < 2 U/mL (0-3); TRANSGLUTAMINASE IGG < 2 U/mL (0-5)
[2017-09-08] MEDS: LOPERAMIDE HCL 2 MG CAPSULE PO PRN (03:53)
[2017-09-08] MEDS: INSULIN (LEVEMIR) 100 UNITS/ML UNITS SQ SCH (06:30)
[2017-09-08] MEDS: LABETALOL HCL 100 MG TABLET (FP) PO SCH ×3 (06:35→21:07)
[2017-09-08] MEDS: GLIMEPIRIDE 2 MG TABLET (FP) PO SCH (06:46)
[2017-09-08] MEDS ORDERED: SODIUM CHLORIDE 250 ML IV PRN (10:22)
[2017-09-08 10:39] LABS: BASO % 0.4 % (0-2.0); EOS % 3.5 % (0-4.5); HEMATOCRIT 32.2 % (32.4-45.2); HEMOGLOBIN 10.5 GM/dL (10.7-15.3); LYMPH % 23.5 % (8-40); MCH 32.5 pg (25.7-33.7); MCHC 32.5 g/dl (32.0-36.0); MEAN PLT VOLUME 7.7 fl (7.5-11.1); NEUT % 66.6 % (42.8-82.8); PLATELET COUNT 321 K/MM3 (134-434); RBC 3.22 M/mm3 (3.60-5.2); RDW 15.6 % (11.6-15.6); WHITE BLOOD COUNT 7.7 K/mm3 (4.0-10.0)
[2017-09-08] MEDS ORDERED: PT OWN MED DRAWER 7, Y5N ONE ×2 (10:52→18:59)
--- NOTE | 2017-09-08 10:52 | PN ---
Physical Exam: SUBJECTIVE: Patient seen and examined at the bedside. In no acute distress, asking for a walker for home use. Feels that it will help her balance. Denies pain or shortness of breath States she had 4 loose BMs overnight OBJECTIVE: coverage for Dr. Callejas On a fluid restriction Asking for a prescription for a rolling walker (SW making arrangements to have RW delivered to patient's home) Vital Signs Period Temp Pulse Resp BP Sys/Denis Pulse Ox Last 24 Hr 97.8 F-98.8 F 66-74 18-18 137-158/54-70 96 GENERAL: The patient is awake, alert, and fully oriented, in no acute distress. HEAD: Normal with no signs of trauma. EYES: PERRL, extraocular movements intact, sclera anicteric, conjunctiva clear. No ptosis. ENT: Ears normal, nares patent, oropharynx clear without exudates, moist mucous membranes. NECK: Trachea midline, full range of motion, supple. LUNGS: Breath sounds diminished bilaterally ABDOMEN: Soft, nontender, nondistended, hyperactive bowel sounds EXTREMITIES: no edema, right arm fistula with bruit thrill NEUROLOGICAL: Normal speech PSYCH: Normal mood, normal affect. SKIN: Warm, dry, normal turgor, no rashes or lesions noted Laboratory Results - last 24 hr 09/06/17 09/07/17 09/08/17 07:20 21:10 06:12 WBC RBC Hgb Hct MCV MCH MCHC RDW Plt Count MPV Neutrophils % Lymphocytes % Monocytes % Eosinophils % Basophils % POC Glucometer 240 159 Tiss Transglutamin IgG < 2 Tiss Transglutamin IgA < 2 Anti-Gliadin IgG Ab 1 Anti-Gliadin IgA Ab 4 09/08/17 10:20 WBC 7.7 RBC 3.22 L Hgb 10.5 L Hct 32.2 L MCV 100.0 H MCH 32.5 MCHC 32.5 RDW 15.6 Plt Count 321 MPV 7.7 Neutrophils % 66.6 Lymphocytes % 23.5 Monocytes % 6.0 Eosinophils % 3.5 Basophils % 0.4 POC Glucometer Tiss Transglutamin IgG Tiss Transglutamin IgA Anti-Gliadin IgG Ab Anti-Gliadin IgA Ab Active Medications Generic Name Dose Route Start Last Admin Trade Name Freq PRN Reason Stop Dose Admin Acetaminophen 650 mg 08/29/17 05:10 09/01/17 23:30 Tylenol - PO 650 mg Q6H PRN Administration FEVER Amlodipine Besylate 5 mg 08/29/17 10:00 09/07/17 09:31 Norvasc - PO 5 mg DAILY NURIS Administration Aspirin 81 mg 08/29/17 10:00 09/07/17 09:31 Asa - PO 81 mg DAILY NURIS Administration Calcitriol 0.5 mcg 08/29/17 10:00 09/07/17 09:31 Rocaltrol - PO 0.5 mcg DAILY NURIS Administration Duloxetine HCl 20 mg 08/29/17 10:00 09/07/17 09:32 Cymbalta - PO 20 mg DAILY NURIS Administration Ergocalciferol 50,000 unit 09/04/17 10:00 09/04/17 10:50 Drisdol - PO Not Given Tu@1000 [facility] Ferrous Sulfate 325 mg 08/29/17 10:00 09/07/17 09:31 Feosol - PO 325 mg DAILY NURIS Administration Glimepiride 2 mg 09/06/17 07:00 09/08/17 06:46 Amaryl - PO 2 mg DAILY@0700 [facility] Administration Heparin Sodium (Porcine) 5,000 unit 09/06/17 22:00 09/07/17 21:30 Heparin - SQ 5,000 unit BID NURIS Administration Levofloxacin 250 mg in 50 mls @ 100 mls/hr 08/30/17 22:00 09/07/17 21:30 Levaquin 250 Mg Premixed Ivpb - IVPB 100 mls/hr Q48H NURIS Administration Protocol Sodium Chloride 250 mls @ 3,000 mls/hr 09/01/17 10:00 Normal Saline - IV PRN PRN Hypotension during Dialysis Sodium Chloride 250 mls @ 3,000 mls/hr 09/08/17 10:22 Normal Saline - IV 09/09/17 10:22 PRN PRN Hypotension during Dialysis Insulin Detemir 14 units 09/05/17 07:00 09/08/17 06:30 Levemir Vial SQ 14 units AM NURIS Administration Labetalol HCl 100 mg 08/29/17 06:00 09/08/17 06:35 Normodyne - PO 100 mg TID NURIS Administration Loperamide HCl 2 mg 09/05/17 15:41 09/08/17 03:53 Imodium - PO 2 mg Q8H PRN Administration DIARRHEA Losartan Potassium 25 mg 08/29/17 10:00 09/07/17 09:31 Cozaar - PO 25 mg DAILY NURIS Administration ASSESSMENT/PLAN: Patient is an 81 year old female with a significant pat medical history of hyperlipidemia, diabetes mellitus, hypertension and ESRD (TTHS), anemia and depression. Patient was admitted on 08/28/2017 for CHF and a chest xray showed multilobar pneumonia and vascular congestion. 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 Fluids: Tolerating PO, on Fluid restriction 1.2 liters Electrolytes: monitor daily Nutrition: diabetic/renal diet Prophy: DVT: ambulation GI: deferred full code Visit type - Emergency Visit Emergency Visit: Yes ED Registration Date: 08/28/17 Care time: The patient presented to the Emergency Department on the above date and was hospitalized for further evaluation of their emergent condition. - New Patient This patient is new to me today: Yes Date on this admission: 09/08/17 - Critical Care Critical Care patient: No - Discharge Referral Referred to [facility] Med P.C.: No
[2017-09-08] MEDS: FERROUS SO4 325 MG TABLET (FP) PO SCH (10:56)
[2017-09-08] MEDS: HEPARIN NA (PORCINE) 5,000 UNITS/ML 1ML VIAL SQ SCH ×2 (10:56→21:07)
[2017-09-08] MEDS: DULoxetine HCL 20 MG CAPSULE.DR (FP) PO SCH (10:56)
[2017-09-08] MEDS: LOSARTAN POTASSIUM 25 MG TABLET PO SCH (10:56)
[2017-09-08] MEDS: amLODIPine BESYLATE 5 MG TABLET (FP) PO SCH (10:56)
[2017-09-08] MEDS: ASPIRIN 81 MG CHEWABLE TABLETS PO SCH (10:56)
[2017-09-08] MEDS: CALCITRIOL 0.25 MCG CAPSULE (FP) PO SCH (10:58)
[2017-09-08 11:08] LABS: ALBUMIN 2.4 g/dl (3.4-5.0); ANION GAP 11 (8-16); BLOOD UREA NITROGEN 26 mg/dL (7-18); CALCIUM 8.4 mg/dL (8.5-10.1); CHLORIDE 98 mmol/L (98-107); CO2 26 mmol/L (21-32); GLUCOSE,RANDOM 186 mg/dL (74-106); MAGNESIUM 1.6 mg/dL (1.8-2.4); POTASSIUM 4.1 mmol/L (3.5-5.1); SGOT/AST 15 U/L (15-37); SGPT/ALT 11 U/L (12-78); SODIUM 135 mmol/L (136-145)
[2017-09-08 11:09] LABS: ALK PHOS 72 U/L (45-117); BILIRUBIN,TOTAL 0.5 mg/dL (0.2-1.0); TOT PROT 5.8 g/dl (6.4-8.2)
--- NOTE | 2017-09-08 12:09 | PN ---
Progress Note (short form) - Note Progress Note: Renal follow up for ESRD on HD Pt seen and examined at the bedside awake and alert no acute complaints continues to have diarrhea no abd pain sob, cough improved Vital Signs Temperature 97.8 F 09/08/17 06:49 Pulse Rate 66 09/08/17 06:49 Respiratory Rate 18 09/08/17 09:00 Blood Pressure 158/61 09/08/17 06:49 O2 Sat by Pulse Oximetry (%) 96 09/08/17 09:00 Intake & Output 09/05/17 09/06/17 09/07/17 09/08/17 23:59 23:59 23:59 23:59 Intake Total 580 910 200 430 Balance 580 910 200 430 Weight 58.513 kg 57.606 kg 56.336 kg 56.563 kg NAD on NC O2 MMM, NO JVD RRR, No M/R dec BS soft NT/ND No LE edema, clubbing or cyanosis Right arm AVF CBC, BMP 09/08/17 10:20 09/08/17 10:20 Current Medications Acetaminophen (Tylenol -) 650 mg PO Q6H PRN PRN Reason: FEVER Last Admin: 09/01/17 23:30 Dose: 650 mg Amlodipine Besylate (Norvasc -) 5 mg PO DAILY [facility] Last Admin: 09/08/17 10:56 Dose: 5 mg Aspirin (Asa -) 81 mg PO DAILY [facility] Last Admin: 09/08/17 10:56 Dose: 81 mg Calcitriol (Rocaltrol -) 0.5 mcg PO DAILY [facility] Last Admin: 09/08/17 10:58 Dose: 0.5 mcg Duloxetine HCl (Cymbalta -) 20 mg PO DAILY [facility] Last Admin: 09/08/17 10:56 Dose: 20 mg Ergocalciferol (Drisdol -) 50,000 unit PO Tu@1000 [facility] Last Admin: 09/04/17 10:50 Dose: Not Given Ferrous Sulfate (Feosol -) 325 mg PO DAILY [facility] Last Admin: 09/08/17 10:56 Dose: 325 mg Glimepiride (Amaryl -) 2 mg PO DAILY@0700 [facility] Last Admin: 09/08/17 06:46 Dose: 2 mg Heparin Sodium (Porcine) (Heparin -) 5,000 unit SQ BID [facility] Last Admin: 09/08/17 10:56 Dose: 5,000 unit Levofloxacin (Levaquin 250 Mg Premixed Ivpb -) 250 mg in 50 mls @ 100 mls/hr IVPB Q48H NURIS PRN Reason: Protocol Last Admin: 09/07/17 21:30 Dose: 100 mls/hr Sodium Chloride (Normal Saline -) 250 mls @ 3,000 mls/hr IV PRN PRN PRN Reason: Hypotension during Dialysis Sodium Chloride (Normal Saline -) 250 mls @ 3,000 mls/hr IV PRN PRN PRN Reason: Hypotension during Dialysis Stop: 09/09/17 10:22 Insulin Detemir (Levemir Vial) 14 units SQ AM [facility] Last Admin: 09/08/17 06:30 Dose: 14 units Labetalol HCl (Normodyne -) 100 mg PO TID [facility] Last Admin: 09/08/17 06:35 Dose: 100 mg Loperamide HCl (Imodium -) 2 mg PO Q8H PRN PRN Reason: DIARRHEA Last Admin: 09/08/17 03:53 Dose: 2 mg Losartan Potassium (Cozaar -) 25 mg PO DAILY [facility] Last Admin: 09/08/17 10:56 Dose: 25 mg Magnesium Sulfate (Magnesium Sulfate) 2 gm IVPB ONCE ONE Stop: 09/08/17 11:39 81 year old woman with PMhx of ESRD on HD (started 8 months ago), Diabetic Nephropathy, Hypertension, HLD, DM who presented with PNA from PMD office. #ESRD on HD #PNA #Hypertension #DM #Chronic Anemia #Renal Osteodystrophy for dialysis today with UF as tolerated will continue SHILPA with HD on Levaquin Q48 for PNA Diarrhea persists, C-diff negative, GI following Ryan Dixon DO
--- NOTE | 2017-09-08 12:28 | PN ---
Progress Note, Physician History of Present Illness: pulmonary alert,no distress,-sob,on dialysis - Current Medication List Current Medications: Active Medications Acetaminophen (Tylenol -) 650 mg PO Q6H PRN PRN Reason: FEVER Last Admin: 09/01/17 23:30 Dose: 650 mg Amlodipine Besylate (Norvasc -) 5 mg PO DAILY [facility] Last Admin: 09/08/17 10:56 Dose: 5 mg Aspirin (Asa -) 81 mg PO DAILY [facility] Last Admin: 09/08/17 10:56 Dose: 81 mg Calcitriol (Rocaltrol -) 0.5 mcg PO DAILY [facility] Last Admin: 09/08/17 10:58 Dose: 0.5 mcg Duloxetine HCl (Cymbalta -) 20 mg PO DAILY [facility] Last Admin: 09/08/17 10:56 Dose: 20 mg Ergocalciferol (Drisdol -) 50,000 unit PO Tu@1000 [facility] Last Admin: 09/04/17 10:50 Dose: Not Given Ferrous Sulfate (Feosol -) 325 mg PO DAILY [facility] Last Admin: 09/08/17 10:56 Dose: 325 mg Glimepiride (Amaryl -) 2 mg PO DAILY@0700 [facility] Last Admin: 09/08/17 06:46 Dose: 2 mg Heparin Sodium (Porcine) (Heparin -) 5,000 unit SQ BID [facility] Last Admin: 09/08/17 10:56 Dose: 5,000 unit Levofloxacin (Levaquin 250 Mg Premixed Ivpb -) 250 mg in 50 mls @ 100 mls/hr IVPB Q48H [facility] PRN Reason: Protocol Last Admin: 09/07/17 21:30 Dose: 100 mls/hr Sodium Chloride (Normal Saline -) 250 mls @ 3,000 mls/hr IV PRN PRN PRN Reason: Hypotension during Dialysis Sodium Chloride (Normal Saline -) 250 mls @ 3,000 mls/hr IV PRN PRN PRN Reason: Hypotension during Dialysis Stop: 09/09/17 10:22 Insulin Detemir (Levemir Vial) 14 units SQ AM [facility] Last Admin: 09/08/17 06:30 Dose: 14 units Labetalol HCl (Normodyne -) 100 mg PO TID [facility] Last Admin: 09/08/17 06:35 Dose: 100 mg Loperamide HCl (Imodium -) 2 mg PO Q8H PRN PRN Reason: DIARRHEA Last Admin: 09/08/17 03:53 Dose: 2 mg Losartan Potassium (Cozaar -) 25 mg PO DAILY [facility] Last Admin: 09/08/17 10:56 Dose: 25 mg Magnesium Sulfate (Magnesium Sulfate) 2 gm IVPB ONCE ONE Stop: 09/08/17 11:39 - Objective Vital Signs: Vital Signs Temperature 98.4 F 09/08/17 12:10 Pulse Rate 60 09/08/17 12:15 Respiratory Rate 18 09/08/17 12:15 Blood Pressure 159/62 09/08/17 12:15 O2 Sat by Pulse Oximetry (%) 96 09/08/17 09:00 Constitutional: Yes: Well Nourished, Calm Eyes: Yes: WNL HENT: Yes: WNL Neck: Yes: WNL Cardiovascular: Yes: Regular Rate and Rhythm, S1, S2 Respiratory: Yes: Wheezes (few wheezes) Gastrointestinal: Yes: Normal Bowel Sounds, Soft Extremities: Yes: WNL Edema: No Labs: CBC, BMP 09/08/17 10:20 09/08/17 10:20 INR, PTT INR 1.16 (0.82-1.09) H 08/28/17 16:35 Problem List - Problems (1) ESRD (end stage renal disease) Code(s): N18.6 - END STAGE RENAL DISEASE (2) CHF (congestive heart failure) Code(s): I50.9 - HEART FAILURE, UNSPECIFIED Qualifiers: Heart failure type: diastolic Heart failure chronicity: acute on chronic Qualified Code(s): I50.33 - Acute on chronic diastolic (congestive) heart failure (3) PNA (pneumonia) Code(s): J18.9 - PNEUMONIA, UNSPECIFIED ORGANISM (4) Diabetes mellitus Code(s): E11.9 - TYPE 2 DIABETES MELLITUS WITHOUT COMPLICATIONS (5) HTN (hypertension) Code(s): I10 - ESSENTIAL (PRIMARY) HYPERTENSION Qualifiers: Hypertension type: essential hypertension Qualified Code(s): I10 - Essential (primary) hypertension Assessment/Plan MP BILATERAL PNEUMONIA improved DIASTOLIC CHF ESRD ON HD HTN DM PLAN IV ABX SUPPLEMENTAL O2 INHALED BRONCHODILATORS HD PER RENAL DR COLEMAN Problem List - Problems (1) ESRD (end stage renal disease) Code(s): N18.6 - END STAGE RENAL DISEASE (2) CHF (congestive heart failure) Code(s): I50.9 - HEART FAILURE, UNSPECIFIED (3) PNA (pneumonia) Code(s): J18.9 - PNEUMONIA, UNSPECIFIED ORGANISM (4) Diabetes mellitus Code(s): E11.9 - TYPE 2 DIABETES MELLITUS WITHOUT COMPLICATIONS (5) HTN (hypertension) Code(s): I10 - ESSENTIAL (PRIMARY) HYPERTENSION
[2017-09-08] MEDS ORDERED: MAGNESIUM 2GM/50ML STERILE WATER IVPB IVPB ONE ×2 (13:15→19:00)
[2017-09-08] MEDS ORDERED: MELATONIN 5 MG TABLETS PO ONE (23:45)
[2017-09-09] MEDS ORDERED: PT OWN MED DRAWER 7, Y5N ONE ×3 (05:47→23:01)
[2017-09-09] MEDS: LABETALOL HCL 100 MG TABLET (FP) PO SCH ×3 (06:18→21:38)
[2017-09-09] MEDS: GLIMEPIRIDE 2 MG TABLET (FP) PO SCH (06:18)
[2017-09-09] MEDS: INSULIN (LEVEMIR) 100 UNITS/ML UNITS SQ SCH (06:18)
[2017-09-09] MEDS ORDERED: INSULIN (LEVEMIR) 100 UNITS/ML UNITS SQ ONE (06:39)
[2017-09-09] MEDS: CALCITRIOL 0.25 MCG CAPSULE (FP) PO SCH (09:11)
[2017-09-09] MEDS: amLODIPine BESYLATE 5 MG TABLET (FP) PO SCH (09:12)
[2017-09-09] MEDS: FERROUS SO4 325 MG TABLET (FP) PO SCH (09:12)
[2017-09-09] MEDS: DULoxetine HCL 20 MG CAPSULE.DR (FP) PO SCH (09:12)
[2017-09-09] MEDS: ASPIRIN 81 MG CHEWABLE TABLETS PO SCH (09:12)
[2017-09-09] MEDS: HEPARIN NA (PORCINE) 5,000 UNITS/ML 1ML VIAL SQ SCH ×2 (09:12→21:38)
[2017-09-09] MEDS: LOSARTAN POTASSIUM 25 MG TABLET PO SCH (09:12)
[2017-09-09 10:22] LABS: BASO % 0.6 % (0-2.0); HEMATOCRIT 33.9 % (32.4-45.2); LYMPH % 16.6 % (8-40); MCH 32.6 pg (25.7-33.7); MCHC 32.5 g/dl (32.0-36.0); MEAN CELL VOLUME 100.5 fl (80-96); MEAN PLT VOLUME 7.7 fl (7.5-11.1); MONO % 6.1 % (3.8-10.2); NEUT % 74.7 % (42.8-82.8); PLATELET COUNT 324 K/MM3 (134-434); RBC 3.37 M/mm3 (3.60-5.2); RDW 15.8 % (11.6-15.6); WHITE BLOOD COUNT 8.4 K/mm3 (4.0-10.0)
[2017-09-09 10:46] LABS: ALBUMIN 2.5 g/dl (3.4-5.0); ANION GAP 12 (8-16); BILIRUBIN,TOTAL 0.3 mg/dL (0.2-1.0); BLOOD UREA NITROGEN 16 mg/dL (7-18); CALCIUM 8.4 mg/dL (8.5-10.1); CHLORIDE 96 mmol/L (98-107); CO2 30 mmol/L (21-32); CREATININE 3.5 mg/dL (0.55-1.02); GLUCOSE,RANDOM 241 mg/dL (74-106); MAGNESIUM 2.3 mg/dL (1.8-2.4); POTASSIUM 3.7 mmol/L (3.5-5.1); SGOT/AST 22 U/L (15-37); SGPT/ALT 16 U/L (12-78); SODIUM 138 mmol/L (136-145); TOT PROT 6.2 g/dl (6.4-8.2)
[2017-09-09 10:47] LABS: ALK PHOS 76 U/L (45-117)
[2017-09-09] MEDS: ACETAMINOPHEN 325 MG TABLET (FP) PO PRN ×2 (11:11→22:16)
--- NOTE | 2017-09-09 13:27 | PN ---
Progress Note, Physician History of Present Illness: pulmonary alert,comfortable,- c/o sob,-cough - Current Medication List Current Medications: Active Medications Acetaminophen (Tylenol -) 650 mg PO Q6H PRN PRN Reason: FEVER Last Admin: 09/09/17 11:11 Dose: 650 mg Amlodipine Besylate (Norvasc -) 5 mg PO DAILY [facility] Last Admin: 09/09/17 09:12 Dose: 5 mg Aspirin (Asa -) 81 mg PO DAILY [facility] Last Admin: 09/09/17 09:12 Dose: 81 mg Calcitriol (Rocaltrol -) 0.5 mcg PO DAILY [facility] Last Admin: 09/09/17 09:11 Dose: 0.5 mcg Duloxetine HCl (Cymbalta -) 20 mg PO DAILY [facility] Last Admin: 09/09/17 09:12 Dose: 20 mg Ergocalciferol (Drisdol -) 50,000 unit PO Tu@1000 [facility] Last Admin: 09/04/17 10:50 Dose: Not Given Ferrous Sulfate (Feosol -) 325 mg PO DAILY [facility] Last Admin: 09/09/17 09:12 Dose: 325 mg Glimepiride (Amaryl -) 2 mg PO DAILY@0700 [facility] Last Admin: 09/09/17 06:18 Dose: 2 mg Heparin Sodium (Porcine) (Heparin -) 5,000 unit SQ BID [facility] Last Admin: 09/09/17 09:12 Dose: 5,000 unit Levofloxacin (Levaquin 250 Mg Premixed Ivpb -) 250 mg in 50 mls @ 100 mls/hr IVPB Q48H NURIS PRN Reason: Protocol Last Admin: 09/07/17 21:30 Dose: 100 mls/hr Sodium Chloride (Normal Saline -) 250 mls @ 3,000 mls/hr IV PRN PRN PRN Reason: Hypotension during Dialysis Insulin Detemir (Levemir Vial) 14 units SQ AM [facility] Last Admin: 09/09/17 06:18 Dose: 14 units Labetalol HCl (Normodyne -) 100 mg PO TID [facility] Last Admin: 09/09/17 06:18 Dose: 100 mg Loperamide HCl (Imodium -) 2 mg PO Q8H PRN PRN Reason: DIARRHEA Last Admin: 09/08/17 03:53 Dose: 2 mg Losartan Potassium (Cozaar -) 25 mg PO DAILY [facility] Last Admin: 09/09/17 09:12 Dose: 25 mg - Objective Vital Signs: Vital Signs Temperature 97.8 F 09/09/17 08:58 Pulse Rate 68 09/09/17 08:58 Respiratory Rate 16 09/09/17 09:00 Blood Pressure 137/57 09/09/17 08:58 O2 Sat by Pulse Oximetry (%) 99 09/09/17 09:00 Constitutional: Yes: Well Nourished, Calm Eyes: Yes: WNL HENT: Yes: WNL Neck: Yes: WNL Cardiovascular: Yes: Regular Rate and Rhythm, S1, S2 Respiratory: Yes: Rhonchi (few rhonchi) Gastrointestinal: Yes: Normal Bowel Sounds, Soft Extremities: Yes: WNL Edema: No Labs: CBC, BMP 09/09/17 10:05 09/09/17 10:05 INR, PTT INR 1.16 (0.82-1.09) H 08/28/17 16:35 Problem List - Problems (1) ESRD (end stage renal disease) Code(s): N18.6 - END STAGE RENAL DISEASE (2) CHF (congestive heart failure) Code(s): I50.9 - HEART FAILURE, UNSPECIFIED Qualifiers: Heart failure type: diastolic Heart failure chronicity: acute on chronic Qualified Code(s): I50.33 - Acute on chronic diastolic (congestive) heart failure (3) PNA (pneumonia) Code(s): J18.9 - PNEUMONIA, UNSPECIFIED ORGANISM (4) Diabetes mellitus Code(s): E11.9 - TYPE 2 DIABETES MELLITUS WITHOUT COMPLICATIONS (5) HTN (hypertension) Code(s): I10 - ESSENTIAL (PRIMARY) HYPERTENSION Qualifiers: Hypertension type: essential hypertension Qualified Code(s): I10 - Essential (primary) hypertension Assessment/Plan MP BILATERAL PNEUMONIA improved DIASTOLIC CHF ESRD ON HD HTN DM PLAN ABX SUPPLEMENTAL O2 INHALED BRONCHODILATORS HD PER RENAL DR COLEMAN Problem List - Problems (1) ESRD (end stage renal disease) Code(s): N18.6 - END STAGE RENAL DISEASE (2) CHF (congestive heart failure) Code(s): I50.9 - HEART FAILURE, UNSPECIFIED (3) PNA (pneumonia) Code(s): J18.9 - PNEUMONIA, UNSPECIFIED ORGANISM (4) Diabetes mellitus Code(s): E11.9 - TYPE 2 DIABETES MELLITUS WITHOUT COMPLICATIONS (5) HTN (hypertension) Code(s): I10 - ESSENTIAL (PRIMARY) HYPERTENSION
--- NOTE | 2017-09-09 17:09 | PN ---
Physical Exam: SUBJECTIVE: Patient seen and examined at the bedside. Feels well today, no chest pain, not short of breath. OBJECTIVE: Vital Signs Period Temp Pulse Resp BP Sys/Denis Pulse Ox Last 24 Hr 97.8 F-98.2 F 67-77 16-20 115-143/51-87 98-99 GENERAL: The patient is awake, alert, and fully oriented, in no acute distress. HEAD: Normal with no signs of trauma. EYES: PERRL, extraocular movements intact, sclera anicteric, conjunctiva clear. No ptosis. ENT: Ears normal, nares patent, oropharynx clear without exudates, moist mucous membranes. NECK: Trachea midline, full range of motion, supple. LUNGS: Breath sounds diminished bilaterally ABDOMEN: Soft, nontender, nondistended, hyperactive bowel sounds EXTREMITIES: no edema, right arm fistula with bruit thrill NEUROLOGICAL: Normal speech PSYCH: Normal mood, normal affect. SKIN: Warm, dry, normal turgor, no rashes or lesions noted Laboratory Results - last 24 hr 09/06/17 09/09/17 09/09/17 07:20 05:54 10:05 WBC 8.4 RBC 3.37 L Hgb 11.0 Hct 33.9 MCV 100.5 H MCH 32.6 MCHC 32.5 RDW 15.8 H Plt Count 324 MPV 7.7 Neutrophils % 74.7 Lymphocytes % 16.6 D Monocytes % 6.1 Eosinophils % 2.0 Basophils % 0.6 Sodium Potassium Chloride Carbon Dioxide Anion Gap BUN Creatinine Creat Clearance w eGFR POC Glucometer 150 Random Glucose Calcium Magnesium Total Bilirubin AST ALT Alkaline Phosphatase Total Protein Albumin Gastrin 16 09/09/17 09/09/17 10:05 11:07 WBC RBC Hgb Hct MCV MCH MCHC RDW Plt Count MPV Neutrophils % Lymphocytes % Monocytes % Eosinophils % Basophils % Sodium 138 Potassium 3.7 Chloride 96 L Carbon Dioxide 30 Anion Gap 12 BUN 16 Creatinine 3.5 H Creat Clearance w eGFR 12.47 POC Glucometer 187 Random Glucose 241 H Calcium 8.4 L Magnesium 2.3 Total Bilirubin 0.3 D AST 22 ALT 16 Alkaline Phosphatase 76 Total Protein 6.2 L Albumin 2.5 L Gastrin Active Medications Generic Name Dose Route Start Last Admin Trade Name Freq PRN Reason Stop Dose Admin Acetaminophen 650 mg 08/29/17 05:10 09/09/17 11:11 Tylenol - PO 650 mg Q6H PRN Administration FEVER Amlodipine Besylate 5 mg 08/29/17 10:00 09/09/17 09:12 Norvasc - PO 5 mg DAILY NURIS Administration Aspirin 81 mg 08/29/17 10:00 09/09/17 09:12 Asa - PO 81 mg DAILY NURIS Administration Calcitriol 0.5 mcg 08/29/17 10:00 09/09/17 09:11 Rocaltrol - PO 0.5 mcg DAILY NURIS Administration Duloxetine HCl 20 mg 08/29/17 10:00 09/09/17 09:12 Cymbalta - PO 20 mg DAILY NURIS Administration Ergocalciferol 50,000 unit 09/04/17 10:00 09/04/17 10:50 Drisdol - PO Not Given Tu@1000 [facility] Ferrous Sulfate 325 mg 08/29/17 10:00 09/09/17 09:12 Feosol - PO 325 mg DAILY NURIS Administration Glimepiride 2 mg 09/06/17 07:00 09/09/17 06:18 Amaryl - PO 2 mg DAILY@0700 NURIS Administration Heparin Sodium (Porcine) 5,000 unit 09/06/17 22:00 09/09/17 09:12 Heparin - SQ 5,000 unit BID NURIS Administration Levofloxacin 250 mg in 50 mls @ 100 mls/hr 08/30/17 22:00 09/07/17 21:30 Levaquin 250 Mg Premixed Ivpb - IVPB 100 mls/hr Q48H NURIS Administration Protocol Sodium Chloride 250 mls @ 3,000 mls/hr 09/01/17 10:00 Normal Saline - IV PRN PRN Hypotension during Dialysis Insulin Detemir 14 units 09/05/17 07:00 09/09/17 06:18 Levemir Vial SQ 14 units AM NURIS Administration Labetalol HCl 100 mg 08/29/17 06:00 09/09/17 14:16 Normodyne - PO 100 mg TID NURIS Administration Loperamide HCl 2 mg 09/05/17 15:41 09/08/17 03:53 Imodium - PO 2 mg Q8H PRN Administration DIARRHEA Losartan Potassium 25 mg 08/29/17 10:00 09/09/17 09:12 Cozaar - PO 25 mg DAILY NURIS Administration ASSESSMENT/PLAN: Patient is an 81 year old female with a significant pat medical history of hyperlipidemia, diabetes mellitus, hypertension and ESRD (TTHS), anemia and depression. Patient was admitted on 08/28/2017 for CHF and a chest xray showed multilobar pneumonia and vascular congestion. 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 Fluids: Tolerating PO, on Fluid restriction 1.2 liters Electrolytes: monitor daily Nutrition: diabetic/renal diet Prophy: DVT: ambulation GI: deferred full code Visit type - Emergency Visit Emergency Visit: Yes ED Registration Date: 08/28/17 Care time: The patient presented to the Emergency Department on the above date and was hospitalized for further evaluation of their emergent condition. - New Patient This patient is new to me today: No - Critical Care Critical Care patient: No
[2017-09-10] MEDS ORDERED: PT OWN MED DRAWER 7, Y5N ONE ×4 (05:18→10:05)
[2017-09-10] MEDS ORDERED: INSULIN (LEVEMIR) 100 UNITS/ML UNITS SQ ONE ×2 (05:34→07:20)
[2017-09-10] MEDS: GLIMEPIRIDE 2 MG TABLET (FP) PO SCH (06:49)
[2017-09-10] MEDS: LABETALOL HCL 100 MG TABLET (FP) PO SCH ×2 (06:49→14:19)
[2017-09-10] MEDS: INSULIN (LEVEMIR) 100 UNITS/ML UNITS SQ SCH (06:49)
[2017-09-10] MEDS: LOSARTAN POTASSIUM 25 MG TABLET PO SCH (10:06)
[2017-09-10] MEDS: FERROUS SO4 325 MG TABLET (FP) PO SCH (10:06)
[2017-09-10] MEDS: ASPIRIN 81 MG CHEWABLE TABLETS PO SCH (10:06)
[2017-09-10] MEDS: HEPARIN NA (PORCINE) 5,000 UNITS/ML 1ML VIAL SQ SCH (10:06)
[2017-09-10] MEDS: amLODIPine BESYLATE 5 MG TABLET (FP) PO SCH (10:06)
[2017-09-10] MEDS: CALCITRIOL 0.25 MCG CAPSULE (FP) PO SCH (10:07)
[2017-09-10] MEDS: DULoxetine HCL 20 MG CAPSULE.DR (FP) PO SCH (10:07)
[2017-09-10 10:14] VITALS: PULSE 69
--- NOTE | 2017-09-10 11:25 | PN ---
Progress Note, Physician History of Present Illness: No acute events. Patient reports ongoing diarrhea. Similar to what she has at home. Apparently, Imodium 3 times a day is ineffective. - Current Medication List Current Medications: Active Medications Acetaminophen (Tylenol -) 650 mg PO Q6H PRN PRN Reason: FEVER Last Admin: 09/09/17 22:16 Dose: 650 mg Amlodipine Besylate (Norvasc -) 5 mg PO DAILY [facility] Last Admin: 09/10/17 10:06 Dose: 5 mg Aspirin (Asa -) 81 mg PO DAILY [facility] Last Admin: 09/10/17 10:06 Dose: 81 mg Calcitriol (Rocaltrol -) 0.5 mcg PO DAILY [facility] Last Admin: 09/10/17 10:07 Dose: 0.5 mcg Duloxetine HCl (Cymbalta -) 20 mg PO DAILY [facility] Last Admin: 09/10/17 10:07 Dose: 20 mg Ergocalciferol (Drisdol -) 50,000 unit PO Tu@1000 [facility] Last Admin: 09/04/17 10:50 Dose: Not Given Ferrous Sulfate (Feosol -) 325 mg PO DAILY [facility] Last Admin: 09/10/17 10:06 Dose: 325 mg Glimepiride (Amaryl -) 2 mg PO DAILY@0700 [facility] Last Admin: 09/10/17 06:49 Dose: 2 mg Heparin Sodium (Porcine) (Heparin -) 5,000 unit SQ BID [facility] Last Admin: 09/10/17 10:06 Dose: 5,000 unit Levofloxacin (Levaquin 250 Mg Premixed Ivpb -) 250 mg in 50 mls @ 100 mls/hr IVPB Q48H NURIS PRN Reason: Protocol Last Admin: 09/09/17 21:38 Dose: 100 mls/hr Sodium Chloride (Normal Saline -) 250 mls @ 3,000 mls/hr IV PRN PRN PRN Reason: Hypotension during Dialysis Insulin Detemir (Levemir Vial) 14 units SQ AM [facility] Last Admin: 09/10/17 06:49 Dose: 14 units Labetalol HCl (Normodyne -) 100 mg PO TID [facility] Last Admin: 09/10/17 06:49 Dose: 100 mg Loperamide HCl (Imodium -) 2 mg PO Q8H PRN PRN Reason: DIARRHEA Last Admin: 09/08/17 03:53 Dose: 2 mg Losartan Potassium (Cozaar -) 25 mg PO DAILY NURIS Last Admin: 09/10/17 10:06 Dose: 25 mg - Objective Vital Signs: Vital Signs Temperature 98.3 F 09/10/17 10:14 Pulse Rate 69 09/10/17 10:14 Respiratory Rate 16 09/10/17 10:14 Blood Pressure 143/60 09/10/17 10:14 O2 Sat by Pulse Oximetry (%) 98 09/10/17 09:00 Constitutional: Yes: Well Nourished, No Distress, Calm Gastrointestinal: Yes: Normal Bowel Sounds, Soft. No: Ascites, Melena, Rectal Bleeding, Tenderness, Vomiting Neurological: Yes: Alert, Oriented Labs: CBC, BMP 09/09/17 10:05 09/09/17 10:05 INR, PTT INR 1.16 (0.82-1.09) H 08/28/17 16:35 Laboratory Last Values WBC 8.4 K/mm3 (4.0-10.0) 09/09/17 10:05 RBC 3.37 M/mm3 (3.60-5.2) L 09/09/17 10:05 Hgb 11.0 GM/dL (10.7-15.3) 09/09/17 10:05 Hct 33.9 % (32.4-45.2) 09/09/17 10:05 MCV 100.5 fl (80-96) H 09/09/17 10:05 MCH 32.6 pg (25.7-33.7) 09/09/17 10:05 MCHC 32.5 g/dl (32.0-36.0) 09/09/17 10:05 RDW 15.8 % (11.6-15.6) H 09/09/17 10:05 Plt Count 324 K/MM3 (134-434) 09/09/17 10:05 MPV 7.7 fl (7.5-11.1) 09/09/17 10:05 Neutrophils % 74.7 % (42.8-82.8) 09/09/17 10:05 Lymphocytes % 16.6 % (8-40) D 09/09/17 10:05 Monocytes % 6.1 % (3.8-10.2) 09/09/17 10:05 Eosinophils % 2.0 % (0-4.5) 09/09/17 10:05 Basophils % 0.6 % (0-2.0) 09/09/17 10:05 PT with INR 13.10 SEC (9.7-13.0) H 08/28/17 16:35 INR 1.16 (0.82-1.09) H 08/28/17 16:35 PTT (Actin FS) 29.2 SECONDS (26.9-34.4) 08/28/17 16:35 Sodium 138 mmol/L (136-145) 09/09/17 10:05 Potassium 3.7 mmol/L (3.5-5.1) 09/09/17 10:05 Chloride 96 mmol/L (98-107) L 09/09/17 10:05 Carbon Dioxide 30 mmol/L (21-32) 09/09/17 10:05 Anion Gap 12 (8-16) 09/09/17 10:05 BUN 16 mg/dL (7-18) 09/09/17 10:05 Creatinine 3.5 mg/dL (0.55-1.02) H 09/09/17 10:05 Creat Clearance w eGFR 12.47 (>60) 09/09/17 10:05 POC Glucometer 133 UNITS (80-120) 09/10/17 06:02 Random Glucose 241 mg/dL (74-106) H 09/09/17 10:05 Calcium 8.4 mg/dL (8.5-10.1) L 09/09/17 10:05 Phosphorus 3.9 mg/dL (2.5-4.9) 09/08/17 10:35 Magnesium 2.3 mg/dL (1.8-2.4) 09/09/17 10:05 Total Bilirubin 0.3 mg/dL (0.2-1.0) D 09/09/17 10:05 AST 22 U/L (15-37) 09/09/17 10:05 ALT 16 U/L (12-78) 09/09/17 10:05 Alkaline Phosphatase 76 U/L (45-117) 09/09/17 10:05 Creatine Kinase 42 IU/L (26-192) 08/29/17 06:25 Troponin I 0.04 ng/ml (0.00-0.05) 08/29/17 06:25 B-Natriuretic Peptide 78646.79 pg/ml (5-450) H 08/28/17 16:35 Total Protein 6.2 g/dl (6.4-8.2) L 09/09/17 10:05 Albumin 2.5 g/dl (3.4-5.0) L 09/09/17 10:05 Gastrin 16 pg/mL (0-115) 09/06/17 07:20 IgA 187 mg/dL (64-422) 09/06/17 07:20 Tiss Transglutamin IgG < 2 U/mL (0-5) 09/06/17 07:20 Tiss Transglutamin IgA < 2 U/mL (0-3) 09/06/17 07:20 Anti-Gliadin IgG Ab 1 units (0-19) 09/06/17 07:20 Anti-Gliadin IgA Ab 4 units (0-19) 09/06/17 07:20 Hep A IgM Ab Confirm Negative (Negative) 08/30/17 09:15 Hepatitis A Ab Total Positive (Negative) H 08/30/17 09:15 Hep Bs Antigen Negative (Negative) 08/30/17 09:15 Hep Bs Antibody Non reactive (.) 08/30/17 09:15 Hep B Core Total Ab Negative (Negative) 08/30/17 09:15 Hep C Ab Diagnostic 0.2 s/co ratio (0.0-0.9) 08/30/17 09:15 Liver Fibrosis Interp (.) 08/30/17 09:15 Problem List - Problems (1) Diarrhea Code(s): R19.7 - DIARRHEA, UNSPECIFIED (2) Anemia Code(s): D64.9 - ANEMIA, UNSPECIFIED (3) CHF (congestive heart failure) Code(s): I50.9 - HEART FAILURE, UNSPECIFIED Qualifiers: Heart failure type: diastolic Heart failure chronicity: acute on chronic Qualified Code(s): I50.33 - Acute on chronic diastolic (congestive) heart failure (4) ESRD (end stage renal disease) Code(s): N18.6 - END STAGE RENAL DISEASE (5) PNA (pneumonia) Code(s): J18.9 - PNEUMONIA, UNSPECIFIED ORGANISM (6) Diabetes mellitus Code(s): E11.9 - TYPE 2 DIABETES MELLITUS WITHOUT COMPLICATIONS (7) HTN (hypertension) Code(s): I10 - ESSENTIAL (PRIMARY) HYPERTENSION Qualifiers: Hypertension type: essential hypertension Qualified Code(s): I10 - Essential (primary) hypertension Assessment/Plan Trial of cholestyramine. Low fat, lactose-free, artificial sweeteners-free diet
[2017-09-10] MEDS ORDERED: CHOLESTYRAMINE/ASPARTAME 4 GM PACKET PO SCH (11:30)
--- NOTE | 2017-09-10 12:20 | PN ---
Progress Note (short form) - Note Progress Note: Renal follow up for ESRD on HD Pt seen and examined at the bedside reports having loose stools x 3 yesterday no abd pain, sob, chest pain wants to go home Vital Signs Temperature 98.3 F 09/10/17 10:14 Pulse Rate 69 09/10/17 10:14 Respiratory Rate 16 09/10/17 10:14 Blood Pressure 143/60 09/10/17 10:14 O2 Sat by Pulse Oximetry (%) 98 09/10/17 09:00 Intake & Output 09/07/17 09/08/17 09/09/17 09/10/17 23:59 23:59 23:59 23:59 Intake Total 814 711 6967 315 Balance 329 237 1852 315 Weight 56.336 kg 56.563 kg 56.245 kg 55.928 kg NAD on NC O2 MMM, NO JVD RRR, No M/R dec BS soft NT/ND No LE edema, clubbing or cyanosis Right arm AVF CBC, BMP 09/09/17 10:05 09/09/17 10:05 Current Medications Acetaminophen (Tylenol -) 650 mg PO Q6H PRN PRN Reason: FEVER Last Admin: 09/09/17 22:16 Dose: 650 mg Amlodipine Besylate (Norvasc -) 5 mg PO DAILY [facility] Last Admin: 09/10/17 10:06 Dose: 5 mg Aspirin (Asa -) 81 mg PO DAILY [facility] Last Admin: 09/10/17 10:06 Dose: 81 mg Calcitriol (Rocaltrol -) 0.5 mcg PO DAILY [facility] Last Admin: 09/10/17 10:07 Dose: 0.5 mcg Cholestyramine Resin (Questran Light Packet -) 8 gm PO BID [facility] Duloxetine HCl (Cymbalta -) 20 mg PO DAILY [facility] Last Admin: 09/10/17 10:07 Dose: 20 mg Ergocalciferol (Drisdol -) 50,000 unit PO Tu@1000 [facility] Last Admin: 09/04/17 10:50 Dose: Not Given Ferrous Sulfate (Feosol -) 325 mg PO DAILY [facility] Last Admin: 09/10/17 10:06 Dose: 325 mg Glimepiride (Amaryl -) 2 mg PO DAILY@0700 [facility] Last Admin: 09/10/17 06:49 Dose: 2 mg Heparin Sodium (Porcine) (Heparin -) 5,000 unit SQ BID NURIS Last Admin: 09/10/17 10:06 Dose: 5,000 unit Levofloxacin (Levaquin 250 Mg Premixed Ivpb -) 250 mg in 50 mls @ 100 mls/hr IVPB Q48H NURIS PRN Reason: Protocol Last Admin: 09/09/17 21:38 Dose: 100 mls/hr Sodium Chloride (Normal Saline -) 250 mls @ 3,000 mls/hr IV PRN PRN PRN Reason: Hypotension during Dialysis Insulin Detemir (Levemir Vial) 14 units SQ AM [facility] Last Admin: 09/10/17 06:49 Dose: 14 units Labetalol HCl (Normodyne -) 100 mg PO TID NURIS Last Admin: 09/10/17 06:49 Dose: 100 mg Loperamide HCl (Imodium -) 2 mg PO Q8H PRN PRN Reason: DIARRHEA Last Admin: 09/08/17 03:53 Dose: 2 mg Losartan Potassium (Cozaar -) 25 mg PO DAILY [facility] Last Admin: 09/10/17 10:06 Dose: 25 mg 81 year old woman with PMhx of ESRD on HD (started 8 months ago), Diabetic Nephropathy, Hypertension, HLD, DM who presented with PNA from PMD office. 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
--- NOTE | 2017-09-10 13:32 | DS ---
Physical Examination Vital Signs: Vital Signs Temperature 98.3 F 09/10/17 10:14 Pulse Rate 69 09/10/17 10:14 Respiratory Rate 16 09/10/17 10:14 Blood Pressure 143/60 09/10/17 10:14 O2 Sat by Pulse Oximetry (%) 98 09/10/17 09:00 Constitutional: Yes: Well Nourished Neck: Yes: WNL, Supple Cardiovascular: Yes: WNL, Regular Rate and Rhythm Respiratory: Yes: WNL, Regular, CTA Bilaterally Gastrointestinal: Yes: WNL, Normal Bowel Sounds, Soft Labs: CBC, BMP 09/09/17 10:05 09/09/17 10:05 Discharge Summary Reason For Visit: CONGESTIVE HEART FAILURE Current Active Problems Anemia (Acute) CHF (congestive heart failure) (Acute) Depression (Acute) Diarrhea (Acute) Diarrhea (Acute) ESRD (end stage renal disease) (Acute) PNA (pneumonia) (Acute) - Problems (1) PNA (pneumonia) Code(s): J18.9 - PNEUMONIA, UNSPECIFIED ORGANISM (2) Diarrhea Code(s): R19.7 - DIARRHEA, UNSPECIFIED (3) CHF (congestive heart failure) Code(s): I50.9 - HEART FAILURE, UNSPECIFIED Qualifiers: Heart failure type: diastolic Heart failure chronicity: acute on chronic Qualified Code(s): I50.33 - Acute on chronic diastolic (congestive) heart failure (4) ESRD (end stage renal disease) Code(s): N18.6 - END STAGE RENAL DISEASE (5) Diabetes mellitus Code(s): E11.9 - TYPE 2 DIABETES MELLITUS WITHOUT COMPLICATIONS (6) HTN (hypertension) Code(s): I10 - ESSENTIAL (PRIMARY) HYPERTENSION Qualifiers: Hypertension type: essential hypertension Qualified Code(s): I10 - Essential (primary) hypertension (7) Anemia Code(s): D64.9 - ANEMIA, UNSPECIFIED (8) Depression Code(s): F32.9 - MAJOR DEP Hospital Course: Pt is 81 y/o female w/ ESRD on dialysis TIW. Pt presented to the ER w/ multilobar pneumonia and CHF exacerbation. Pt admitted to [facility] and was found tachycardiac and medications were adjusted and this improved. pt followed by cardio and pulmonary and was given treatment w/ IV levaquin for her pneumonia wc has now resolved. Pt also treated for CHF w/ IV lasix. Pt continued to have diarrhea wc pt states is common for her. Stool studies were done wc were negatyive and pt was followed by GI consult. Pt has now finished her course of antibiotics and can be discharged home. Pt was also followed by renal for her dialysis. Condition: Good - Instructions Diet, Activity, Other Instructions: 2 gram sodium, renal diet and [address] Mchugh in 1 week Referrals: Fermin Mchugh MD [Primary Care Provider] - Disposition: HOME - Home Medications Comprehensive Discharge Medication List: Ambulatory Orders Acetaminophen with Codeine [Tylenol with Codeine #4 Tablet] 1 tab PO TID PRN 12/20 Ferrous Sulfate [Feosol] 325 mg PO DAILY 01/13/16 Loperamide HCl [Imodium -] 2 mg PO DAILY 01/13/16 Amlodipine Besylate [Norvasc -] 5 mg PO DAILY 08/28/17 Aspirin [ASA -] 81 mg PO DAILY 08/28/17 Calcitriol 0.5 mcg PO DAILY 08/28/17 Duloxetine HCl 20 mg PO DAILY 08/28/17 Ergocalciferol [Vitamin D2] 50,000 unit PO Q7D@1000 08/28/17 Insulin Detemir [Levemir Flextouch] 14 unit SQ BID 08/28/17 Labetalol HCl 100 mg PO TID 08/28/17 Losartan Potassium 25 mg PO DAILY 08/28/17 Sevelamer HCl [Renagel] 800 mg PO TID 08/28/17 Cholestyramine/Aspartame [Questran Light Packet -] 8 gm PO BID #60 packet Glimepiride [Amaryl -] 2 mg PO DAILY@0700 #30 tablet 09/10/17
[2017-09-10 14:35] VITALS: BP 160/61; TEMP 98.5
[2017-09-12 14:17] LABS: VASOACTIVE INTEST, POLYPEPTIDE 71.7 pg/mL (0.0-58.8)
== END 2017-09-10 16:48 | disposition home or self-care (01) | DRG 291 ==
LOC: JER 15:21 → JERBED 18:46 → J4W 20:58 → J5S 09-07 19:35
PROVIDERS: ADMIT Internal Medicine; ATTEND Internal Medicine
PROC: 5A1D70Z Performance of Urinary Filtration, Intermittent, Less than 6 Hours Per Day (ICD-10-PCS; principal; 2017-09-04)
PROC: 5A1D70Z Performance of Urinary Filtration, Intermittent, Less than 6 Hours Per Day (ICD-10-PCS; 2017-09-06)
PROC: 5A1D70Z Performance of Urinary Filtration, Intermittent, Less than 6 Hours Per Day (ICD-10-PCS; 2017-09-08)
DX: I13.2 Hypertensive heart and chronic kidney disease with heart failure and with stage 5 chronic kidney disease, or end stage renal disease (principal); N18.6 End stage renal disease; I50.33 Acute on chronic diastolic (congestive) heart failure; J18.9 Pneumonia, unspecified organism; F32.9 Major depressive disorder, single episode, unspecified; E11.22 Type 2 diabetes mellitus with diabetic chronic kidney disease; D64.9 Anemia, unspecified; E11.21 Type 2 diabetes mellitus with diabetic nephropathy; N25.0 Renal osteodystrophy; D63.1 Anemia in chronic kidney disease; E11.649 Type 2 diabetes mellitus with hypoglycemia without coma; R19.7 Diarrhea, unspecified; R00.0 Tachycardia, unspecified; Z99.2 Dependence on renal dialysis
CPT/HCPCS: 36415; 71045-TC-FY; 80048; 80053; 82550; 82784; 82941; 82947; 82962; 83516; 83735; 83880; 84100; 84484; 84586; 85025; 85027; 85610; 85730; 86704; 86706; 86708; 87015; 87040; 87045; 87046; 87177; 87207; 87209; 87324; 87328; 87329; 87340; 87449; 93005; 93010; 93306-TC; 94640; 97116-GP; 97161-GP; 99282-25; J0885; J1644; J7620